=== PATIENT | male | born 1970 | race Caucasian/White ===

== ENCOUNTER → 2017-06-21 11:24 | Outpatient (CLI) | payer OTHER, SELFPAY ==
[2017-06-21 11:30] LABS: Red Blood Cells-Urine 0 SEEN /hpf (0-5); Squamous Epithelial Cells - UA 0 SEEN /hpf (0-5)
[2017-06-21 14:18] LABS: Color, Urine Yellow (Yellow); Glucose, Dipstick Normal (Normal); Ketone-Dipstick Negative (Negative); Leukocyte Esterase-Dipstick 25 /ul (Negative); Nitrite-Dipstick Negative (Negative); Occult Blood-Urine Negative /ul (Negative); Protein-Dipstick Negative (Negative); Urine Bilirubin Dipstick Negative (Negative); Urine Clarity Clear (Clear); Urine Urobilinogen Normal (Normal)
[2017-06-21 14:22] LABS: Absolute Lymphocyte Count 1.54 X10^3/ul (0.83-4.51); Absolute Neutrophil Count 3.6 X10^3/uL (2.0-7.7); Basophil# 0.02 X10^3/uL; Basophil% 0.3 % (0-1); Eosinophil# 0.27 X10^3/uL; Eosinophils% 4.4 % (0-5); Hematocrit 46.6 % (40-54); Hemoglobin 15.8 g/dl (13.0-16.5); Lymphocyte # 1.54 X10^3/ul (4.0); Lymphocyte % 25.2 % (19-41); Mean Corp Hgb Conc 33.9 g/gl (32-36); Mean Corpuscular Hgb 33.4 pg (27.0-32.0); Mean Corpuscular Volume 98.5 fL (80-94); Mean Platelet Vol. 11.3 fl (6.2-12.0); Monocyte# 0.66 X10^3/uL; Monocyte% 10.8 % (0-10); Neutrophil % 59.1 % (47-70); Platelet Count 189 K/mm3 (150-450); RBC Distribution Width SD 50.1 fl (35.1-43.9); Red Blood Count 4.73 M/mm3 (4.6-6.2); White Blood Count 6.1 K/mm3 (4.4-11.0)
[2017-06-21 14:28] LABS: Bacteria RARE /hpf (None Seen); Mucous, Urine 1+ /hpf (<or=2+); White Blood Cells 0-5 SEEN /hpf (0-5)
[2017-06-21 14:36] LABS: POSITIVE COUNT NO; POSITIVE DIFFERENTIAL NO; POSITIVE MORPHOLOGY NO
[2017-06-21 14:54] LABS: ALB/GLOB Ratio 1.1 RATIO (0.9-2.4); AST(SGOT) 17 U/L (15-37); Alanine Aminotransfer ALT/SGPT 26 U/L (16-61); Albumin, Serum 3.9 g/dL (3.2-5.0); Alkaline Phosphatase 93 U/L (45-117); Anion Gap 8 (5-15); BUN 19 mg/dL (7-18); BUN/Creat Ratio 19.3 RATIO (10-20); Calcium,Total 8.8 mg/dL (8.5-10.1); Chloride 109 mmol/L (98-107); Cholesterol 146 mg/dL (200); Creatinine, Serum 0.99 mg/dL (0.70-1.30); EST Glomerular Filtration Rate 86 mL/min (>60); Est Glom Filt Rate - Afr Amer 104 mL/min (>60); Globulin 3.5 g/dL (2.2-4.2); Glucose 93 mg/dL (74-106); High Density Lipoprotein 57 mg/dL; Potassium 4.2 mmol/L (3.5-5.1); Protein, Total 7.4 g/dL (6.4-8.2); Sodium Level 142 mmol/L (136-145); Thyroid Stim Hormone (TSH) 0.73 uIU/mL (0.358-3.74); Triglycerides 46 mg/dL; Very Low Density Lipoprotein 9 mg/dL (5-40)
== END ==
PROVIDERS: Family Provider Family Medicine; PCP Family Medicine; Visit Provider Family Medicine
DX: R07.9 Chest pain, unspecified (principal); K21.9 Gastro-esophageal reflux disease without esophagitis; Z72.0 Tobacco use; Z13.29 Encounter for screening for other suspected endocrine disorder
CPT/HCPCS: 36415; 80053; 80061; 81001; 84443; 85025

== ENCOUNTER → 2017-07-02 11:31 | Outpatient (CLI) | payer OTHER, SELFPAY ==
--- NOTE | 2017-07-02 18:57 | STRESSREP ---
Stress Test Report Exercise stress test. 47-year-old man with a history of chest pain. Stress protocol: Resting EKG demonstrates normal sinus rhythm with a rate of 77 bpm. The patient exercised according to regular Chris protocol for total duration of 9 minutes and 7 seconds the patient completed 7 seconds to stage IV of the Chris protocol the maximum heart rate attained was 166 bpm which was 96% maximum predicted heart rate the maximum workload attained was 10.2 metabolic equivalents. At rest there were no ST or T-wave changes noticed ischemia at peak exercise upsloping ST changes only were noted with no meet the criteria for ischemia. No clinical angina was noted. The test was terminated due to leg fatigue. The resting blood pressure is 160/90 mmHg with a peak blood pressure 168 of 100 mmHg. No arrhythmias were noted. Conclusion 1. exercise stress test with no EKG criteria for ischemia at a high workload. Good functional aerobic capacity. No clinical angina noted.
== END ==
PROVIDERS: Family Provider Family Medicine; PCP Family Medicine; Visit Provider Family Medicine
DX: R07.9 Chest pain, unspecified (principal); R91.8 Other nonspecific abnormal finding of lung field
CPT/HCPCS: 93017

== ENCOUNTER → 2017-07-11 13:12 | Outpatient (CLI) | payer OTHER, SELFPAY ==
--- NOTE | 2017-07-11 13:14 | CT_ITS ---
STUDY: CT CHEST WITHOUT CONTRAST REASON FOR EXAM: Male, 47 years old. Multiple lung nodules. Left upper chest pain for one year. Smoker. RADIATION DOSAGE (If Supplied By Facility): CTDIvol = ( 14.28 ) mGy, DLP = ( 542.3 ) mGycm TECHNIQUE: Transaxial imaging was performed without the administration of intravenous contrast material. Individualized dose optimization techniques were used for this CT. COMPARISON: None. No previous studies or radiologic reports are available for correlation at the time of this reading. FINDINGS: There are numerous small emphysematous bullae in the peripheral upper lung farr bilaterally. There are small scattered areas of atelectasis or fibrosis. There are no demonstrated pulmonary nodules. There is no demonstrated pleural abnormality. Normal heart and pericardium. There are small coronary artery calcifications. There are small mediastinal lymph nodes which are normal in size and morphology Normal hilar regions. Normal unenhanced pulmonary arteries. Normal aorta arch and descending thoracic aorta. There are old left rib fractures. There are multilevel degenerative changes in thoracic spine. There is a 1 cm left adrenal adenoma. There is an 8 mm right adrenal adenoma. CT/Chest without Contrast IMPRESSION: Mild emphysematous and fibrotic changes in the lungs. Mild coronary artery atherosclerosis. No evidence for acute pathology. No visualized masses or lymphadenopathy. Small bilateral adrenal adenomas. Electronically Signed: Timothy Liz MD at 5:32 EDT , Service support ,
== END ==
PROVIDERS: Family Provider Family Medicine; PCP Family Medicine; Visit Provider Family Medicine
DX: R91.8 Other nonspecific abnormal finding of lung field (principal); R07.9 Chest pain, unspecified; F17.200 Nicotine dependence, unspecified, uncomplicated
CPT/HCPCS: 71250

== ENCOUNTER 2021-02-20 13:13 | Inpatient (IN) | payer MEDICAID, SELFPAY ==
[2021-02-20] VITALS (7 sets, daily range): BP systolic 125–158; BP diastolic 72–82; PULSE 87–106; RESP 16–18; TEMP 36.1–37.3; O2SAT 97–98; BMI 28.8; BMI 28.2
--- NOTE | 2021-02-20 13:40 | ED.VIS.GI ---
HPI HPI - GI History of Present Illness Chief Complaint: GI Bleed Informant: patient Abdominal Pain/Flank Pain Onset: Today Context: Gradual Onset Timing: Continuous Quality: Aching Location: Epigastric Current Severity: Mild Maximum Severity: Mild Worsened by: Nothing Relieved by: Nothing Nausea/Vomiting/Emesis GI Symptom: Positive for Nausea and Vomiting Onset: Today Severity: Mild Diarrhea/Melena/Hematochezia GI Symptom: Negative for Diarrhea, Melena and Hematochezia Associated Symptoms Associated Symptoms: Negative for Dysuria, Frequency and Hematuria Narrative Narrative: 50-year-old male history of hiatal hernia, ulcerative colitis and irritable bowel. States that he had breakfast around 1030 this morning. States he felt bloated around 1130 he took some Gas-X and then had nausea vomiting the first time he threw up he said he threw up a large clot of dark red blood. He did this 3 times. He denies any recent melena. He is never had an upper GI bleed before. He states he was scoped upper and lower about a year ago and other than his ulcerative colitis he states he had no bleeding source at the time. He is on no blood thinners. He does drink around 4 times a week and had 2 beers and 2 shots last night. Prior similar symptoms: No Recent Illness/Hospitalization: No PFSH PFSH Medical History Colitis Hiatal hernia Irritable bowel Home Medications NK 02/20/21 [History Last Taken Unknown] Allergy/AdvReac Type Severity Reaction Status Date / Time No Known Allergies Allergy Verified 02/20/21 13:16 Social History Smoking Status: Current every day smoker tobacco type: cigarettes ROS ROS ED ROS Narrative Nausea and vomiting today. Epigastric abdominal pain today. Review of Systems ROS Unobtainable: Denies due to encephalopathy Constitutional Constitutional ED: Denies fever(s) or subjective ENT ENT ED: Denies ear pain Cardiovascular Cardiovascular: Denies chest pain Respiratory/Chest Respiratory/Chest: Denies cough or dyspnea Gastrointestinal Gastrointestinal: Reports abdominal pain, nausea and vomiting; Denies constipation, diarrhea or melena Genitourinary Genitourinary ED: Denies dysuria Musculoskeletal Musculoskeletal: Denies myalgias Integumentary Denies rash Neurologic Neurologic: Denies headache(s) Psychiatric Psychiatric: Denies depression Endocrine Endocrinology: Denies polyuria Hematologic/Lymphatic Hematologic/Lymphatic: Denies easy bruising EXAM Physical Exam Narrative Exam Narrative: 30-year-old male no acute distress vital signs stable afebrile. Initial pressure 158/78. HEENT exam unremarkable moist with memories. Lungs clear to auscultation. Heart regular rhythm rate about 100 no murmur. Abdomen soft epigastric tenderness. No rebound or guarding. He is tender in that area. Right upper and lower quadrants are unremarkable. No signs of obstruction. Moving all 4 extremities. No edema. Nontender back nontender. Neurologic exam normal. Const Vital Signs: 02/20/21 13:13 Temperature 97.3 F L Temperature Source Temporal Pulse Rate 105 H Respiratory Rate 16 Blood Pressure 158/78 H Blood Pressure Mean 104 Pulse Ox 97 Oxygen Delivery Method Room Air Positive well nourished and well developed; Negative for cachectic, contractures or unkempt General Appearance ED: well developed and NAD; Negative for unkempt, cachectic, contractures or pallor Nutritional Appearance: Negative for cachectic HEENT Reports moist mucous membranes normocephalic and atraumatic; Negative for trauma or tenderness Eyes PERRL and EOMs intact bilaterally Neck no lymphadenopathy, supple and no JVD General: Negative for tenderness Resp normal respiratory effort and clear to auscultation bilaterally Auscultation: Negative for rales, rhonchi or wheezes Cardio regular rate, regular rhythm, S1 normal heart sound, S2 normal heart sound and no murmurs GI non-tender, non-distended and no masses Auscultation: normoactive bowel sounds Palpation: soft; Negative for tender, guarding or rigid Back/Spine no CVA tenderness General Back: Negative for CVA tenderness Cervical Spine: Negative for cervical spine tenderness Extremity full ROM General Extremety ED: Negative for edema or tenderness General Extremity: Negative for edema Neuro moves all extremities Sensorium / Orientation: alert, oriented to person, oriented to place and oriented to time; Negative for orientation impaired, confused, lethargic or stuporous Motor Exam: strength 5/5 throughout Psych mental status grossly normal and thought process normal Appearance: Negative for unkempt Skin no wounds General Skin Exam: Negative for jaundice or pallor Lesions: no lesions Rashes: no rashes MDM MDM MDM Narrative Medical decision making narrative: 50-year-old male with hematemesis x3 today. Currently stable. Started on IV Protonix screening labs being obtained. He also has epigastric pain which could be pancreatitis liver possible ulcer or gastritis versus other. He will be typed and screened. Repeat exam unchanged at 2:30 PM. Patient is resting comfortably. He has had no further hematemesis or vomiting while in the emergency department. I spoke to our hospitalist and general surgeon on-call patient will be admitted to the PCU. Lab Data Attestation: I reviewed the patient's lab results. Lab results narrative: CBC shows normal white count of 6. Hemoglobin 11 previously was 15.8 but that was 3 years ago we have no other labs on the patient. Electrolytes unremarkable gap of 4 normal BUN and creatinine. Glucose 168. Liver enzymes unremarkable alk phos 146. Lipase normal at 309. Labs: Laboratory Results - last 24 hr 02/20/21 02/20/21 02/20/21 13:25 13:25 13:25 WBC 6.8 RBC 3.97 L Hgb 11.0 L Hct 35.3 L MCV 88.9 MCH 27.7 MCHC 31.2 L RDW Std Deviation 49.3 H RDW Coeff of Jumana 15.1 H Plt Count 123 L MPV 11.3 Immature Gran % (Auto) 0.400 Neut % (Auto) 74.0 H Lymph % (Auto) 14.2 L Hart % (Auto) 8.9 Eos % (Auto) 1.9 Baso % (Auto) 0.6 Absolute Neuts (auto) 5.0 Absolute Lymphs (auto) 0.96 Nucleated RBC % 0 Sodium 139 Potassium 4.1 Chloride 110 H Carbon Dioxide 25.0 Anion Gap 4 L BUN 11 Creatinine 0.81 Estim Creat Clear Calc 107.89 Est GFR (MDRD) Af Amer 129 Est GFR (MDRD) Non-Af 107 BUN/Creatinine Ratio 13.6 Glucose 168 H Calcium 8.9 Total Bilirubin 0.70 Direct Bilirubin 0.32 H AST 62 H ALT 35 Alkaline Phosphatase 146 H Total Protein 7.9 Albumin 3.2 Globulin 4.7 H Lipase 02/20/21 13:25 WBC RBC Hgb Hct MCV MCH MCHC RDW Std Deviation RDW Coeff of Jumana Plt Count MPV Immature Gran % (Auto) Neut % (Auto) Lymph % (Auto) Hart % (Auto) Eos % (Auto) Baso % (Auto) Absolute Neuts (auto) Absolute Lymphs (auto) Nucleated RBC % Sodium Potassium Chloride Carbon Dioxide Anion Gap BUN Creatinine Estim Creat Clear Calc Est GFR (MDRD) Af Amer Est GFR (MDRD) Non-Af BUN/Creatinine Ratio Glucose Calcium Total Bilirubin Direct Bilirubin AST ALT Alkaline Phosphatase Total Protein Albumin Globulin Lipase 309 Discharge Plan Triage Chief Complaint: GI Bleed ED Provider: Samuel Koenig Dx/Rx/DC Orders Clinical Impression: Acute upper gastrointestinal bleeding Instructions: ED Upper GI Bleeding (Stable) Prescriptions: No Action NK RF: 0 Primary Care Provider: Aron Moya Referrals: Aron Moya MD [Primary Care Provider] - Disposition Disposition: Acute Care Hospital [facility]
[2021-02-20 13:42] LABS: Absolute Lymphocyte Count 0.96 X10^3/uL (0.83-4.51); Basophil# 0.04 X10^3/uL; Basophil% 0.6 % (0-1); Eosinophil# 0.13 X10^3/uL; Eosinophils% 1.9 % (0-5); Hematocrit 35.3 % (40-54); Lymphocyte # 0.96 X10^3/ul (0.83-4.51); Lymphocyte % 14.2 % (19-41); Mean Corp Hgb Conc 31.2 g/dL (32-36); Mean Corpuscular Hgb 27.7 pg (27.0-32.0); Mean Corpuscular Volume 88.9 fL (80-94); Mean Platelet Vol. 11.3 fl (6.2-12.0); Monocyte% 8.9 % (0-10); NRBC Flagged by Analyzer 0 % (0-5); Neutrophil # 4.99 X10^3/uL (2.7-7.7); Platelet Count 123 K/mm3 (150-450); RBC Distribution Width CV 15.1 % (11.6-14.6); RBC Distribution Width SD 49.3 fl (35.1-43.9); Red Blood Count 3.97 M/mm3 (4.6-6.2); White Blood Count 6.8 K/mm3 (4.4-11.0)
[2021-02-20 13:50] LABS: Anion Gap 4 (5-15); BUN 11 mg/dL (7-18); BUN/Creat Ratio 13.6 RATIO (10-20); Calcium,Total 8.9 mg/dL (8.5-10.1); Chloride 110 mmol/L (98-107); Creatinine, Serum 0.81 mg/dL (0.70-1.30); EST Glomerular Filtration Rate 107 mL/min (>60); Est Glom Filt Rate - Afr Amer 129 mL/min (>60); Estimated Creatinine Clearance 107.89 ml/min; Glucose 168 mg/dL (74-106); Potassium 4.1 mmol/L (3.5-5.1); Sodium Level 139 mmol/L (136-145)
[2021-02-20 14:14] LABS: Lipase 309 U/L (73-393)
[2021-02-20 14:15] LABS: AST(SGOT) 62 U/L (15-37); Alanine Aminotransfer ALT/SGPT 35 U/L (16-61); Albumin, Serum 3.2 g/dL (3.2-5.0); Alkaline Phosphatase 146 U/L (45-117); Bilirubin, Direct 0.32 mg/dL (0.00-0.30); Globulin 4.7 g/dL (2.2-4.2); Protein, Total 7.9 g/dL (6.4-8.2)
--- NOTE | 2021-02-20 14:26 | ED.RN ---
called to check status of protonix in pharmacy at [phone]
--- NOTE | 2021-02-20 14:50 | HP.PCM.HOS_ITS ---
HPI - General General Date of Admission: 02/20/21 HPI Narrative LUH RAMOS, is a 50 M who presents after having multiple episodes of emesis with blood clots, each episode of emesis had enough blood clots to fill the palm of his hands. He states that he had breakfast this morning and started feeling bloated. At that point he became nauseated and had a first episode of emesis. He denies any blood in his bowel movements, denies any dark stools. He takes Nexium for his hiatal hernia. He does have a drinking history and says he drinks about 4 times a week and had about 2 beers and 2 shots last night. In the ER lab work straight been of 11 which is down from 15, 3 years ago. BUN is normal at 11 creatinine is unremarkable. Direct bilirubin is little bit elevated but his total bilirubin is normal. AST is 62 ALT is 35 and alk phos is 146. He does state that he has a history of colitis but is not sure if his ulcerative colitis. He was given a dose of Protonix in the ER. [facility] Medical History (Updated 02/20/21 @ 14:[address] Samuel Koenig MD) Colitis Hiatal hernia Irritable bowel Home Medications NK 02/20/21 [History Last Taken Unknown] Allergy/AdvReac Type Severity Reaction Status Date / Time No Known Allergies Allergy Verified 02/20/21 13:16 Family History (Updated 02/20/21 @ 15:[address] Kain Xiong MD) Other Cancer Diabetes Heart disease Surgical History (Updated 02/20/21 @ 15:[address] Kain Xiong MD) Status post rotator cuff repair Social History Smoking Status: Current every day smoker tobacco type: cigarettes ROS Constitutional Constitutional: Denies chills, fatigue, fever(s) or malaise Eyes Eyes: Denies blurry vision ENT HEENT: Denies headache(s) or nasal discharge Cardiovascular Cardiovascular: Denies chest pain, dyspnea on exertion or syncope Respiratory/Chest Respiratory/Chest: Denies cough, shortness of breath at rest or shortness of breath with exertion Gastrointestinal Gastrointestinal: Reports hematemesis, nausea and vomiting; Denies constipation or diarrhea Genitourinary Genitourinary: Denies dysuria Neurologic Neurologic: Denies focal weakness, numbness or tremor(s) Psychiatric Psychiatric: Denies anxiety or depression Vital Signs Vital Signs Vital Signs: 02/20/21 13:13 Temperature 97.3 F L Temperature Source Temporal Pulse Rate 105 H Respiratory Rate 16 Blood Pressure 158/78 H Blood Pressure Mean 104 Pulse Ox 97 Oxygen Delivery Method Room Air Weight Weight: 195 lb Body Mass Index (BMI) 28.8 Physical Exam Const alert, oriented x3 and no apparent distress General Appearance: cooperative HEENT normocephalic and moist oral mucous membranes Eyes PERRL, EOMs intact bilaterally and conjunctivae normal Neck supple and no JVD Resp normal respiratory effort, no retractions, no use of accessory muscles and clear to auscultation bilaterally Auscultation: Negative for crackles, rales, rhonchi or wheezes Cardio regular rate, regular rhythm, S1 normal heart sound, S2 normal heart sound and no murmurs GI soft to palpation and non-distended; Negative for hepatosplenomegaly Palpation: tender epigastric Extremity no clubbing, cyanosis or edema Skin no rashes or lesions noted Neuro no focal motor deficits and no sensory deficits noted Psych affect normal Appearance: appropriate Results Lab / Micro Data Result Diagrams: 02/20/21 13:25 02/20/21 13:25 Labs: Laboratory Results - last 24 hr 02/20/21 13:25: WBC 6.8, RBC 3.97 L, Hgb 11.0 L, Hct 35.3 L, MCV 88.9, MCH 27.7, MCHC 31.2 L, RDW Std Deviation 49.3 H, RDW Coeff of Jumana 15.1 H, Plt Count 123 L, MPV 11.3, Immature Gran % (Auto) 0.400, Neut % (Auto) 74.0 H, Lymph % (Auto) 14.2 L, [place] % (Auto) 8.9, Eos % (Auto) 1.9, Baso % (Auto) 0.6, Absolute Neuts (auto) 5.0, Absolute Lymphs (auto) 0.96, Nucleated RBC % 0 02/20/21 13:25: Sodium 139, Potassium 4.1, Chloride 110 H, Carbon Dioxide 25.0, Anion Gap 4 L, BUN 11, Creatinine 0.81, Estim Creat Clear Calc 107.89, Est GFR (MDRD) Af Amer 129, Est GFR (MDRD) Non-Af 107, BUN/Creatinine Ratio 13.6, Glucose 168 H, Calcium 8.9 02/20/21 13:25: Total Bilirubin 0.70, Direct Bilirubin 0.32 H, AST 62 H, ALT 35, Alkaline Phosphatase 146 H, Total Protein 7.9, Albumin 3.2, Globulin 4.7 H 02/20/21 13:25: Lipase 309 02/20/21 13:52: Blood Type A POSITIVE, Antibody Screen NEGATIVE Assessment & Plan Assessment/Plan (1) Acute upper gastrointestinal bleeding: PLAN: 1. Acute upper GI bleeding -We will start him on Protonix and make him n.p.o. -Consult general surgery for endoscopy -We will type and screen and repeat H&H this evening at 7 PM -We will place him on IV fluids -We will place him on CIWA protocol secondary to his drinking, he will likely need to be ruled out for any type of varices or alcohol induced GI bleeding DVT: SCDs Charges/Coding Visit Charges Inpatient E&M: 15491 Init Hosp L2
[2021-02-20] MEDS: 0.9% Normal Saline 1,000 ML 100 ML IV (16:04)
[2021-02-20] MEDS: 0.9% Saline Lock 10 ML Syringe IV (16:08)
[2021-02-20] MEDS: Ondansetron 4 MG/2 ML Vial IV (16:08)
[2021-02-20 18:50] LABS: Hematocrit 29.4 % (40-54); Hemoglobin 9.1 g/dL (13.0-16.5)
[2021-02-21] VITALS (30 sets, daily range): BP systolic 85–125; BP diastolic 33–102; PULSE 90–126; RESP 12–22; TEMP 36.4–37.4; O2SAT 93–100; BMI 28.2
[2021-02-21] MEDS: 0.9% Normal Saline 1,000 ML 100 ML IV ×3 (01:08→21:23)
[2021-02-21 07:15] LABS: Absolute Lymphocyte Count 1.13 X10^3/uL (0.83-4.51); Absolute Neutrophil Count 5.2 X10^3/uL (2.0-7.7); Basophil# 0.03 X10^3/uL; Basophil% 0.4 % (0-1); Eosinophil# 0.12 X10^3/uL; Eosinophils% 1.7 % (0-5); Hematocrit 24.7 % (40-54); Hemoglobin 7.8 g/dL (13.0-16.5); Lymphocyte # 1.13 X10^3/ul (0.83-4.51); Lymphocyte % 15.6 % (19-41); Mean Corp Hgb Conc 31.6 g/dL (32-36); Mean Corpuscular Hgb 28.5 pg (27.0-32.0); Mean Corpuscular Volume 90.1 fL (80-94); Mean Platelet Vol. 12.3 fl (6.2-12.0); Monocyte# 0.78 X10^3/uL; Monocyte% 10.8 % (0-10); NRBC Flagged by Analyzer 0 % (0-5); Neutrophil # 5.15 X10^3/uL (2.7-7.7); Neutrophil % 71.1 % (47-70); Platelet Count 108 K/mm3 (150-450); RBC Distribution Width CV 15.4 % (11.6-14.6); RBC Distribution Width SD 50.2 fl (35.1-43.9); Red Blood Count 2.74 M/mm3 (4.6-6.2); White Blood Count 7.2 K/mm3 (4.4-11.0)
[2021-02-21 07:45] LABS: Anion Gap 4 (5-15); BUN 28 mg/dL (7-18); BUN/Creat Ratio 37.5 RATIO (10-20); Calcium,Total 8.5 mg/dL (8.5-10.1); Chloride 115 mmol/L (98-107); Creatinine, Serum 0.75 mg/dL (0.70-1.30); EST Glomerular Filtration Rate 117 mL/min (>60); Est Glom Filt Rate - Afr Amer 141 mL/min (>60); Estimated Creatinine Clearance 116.52 ml/min; Glucose 148 mg/dL (74-106); Potassium 4.9 mmol/L (3.5-5.1); Sodium Level 142 mmol/L (136-145)
--- NOTE | 2021-02-21 07:51 | EX.PCM.CON.S ---
Assessment & Plan Assessment/Plan (1) Acute upper gastrointestinal bleeding: PLAN: Patient is actively vomiting blood. I discussed EGD with him. I discussed the procedure in detail as well as the risks including but not limited to bleeding, infection, perforation of the GI tract or worsening of bleeding. I also explained to him that I would be unable to band esophageal varices and he would require repeat procedure by GI if this is the case. Patient agrees to proceed with EGD this morning. Sergio Turner MD Pager: [facility] [address] [place] [address], [address] [place] [address] Office: HPI Consult Data Date of Consult: 02/21/21 HPI Narrative HPI Narrative: LUH RAMOS is a 50 M who presents with upper GI bleeding. The patient vomited blood several times yesterday. Patient also reports he has vomited blood twice since being in the hospital. He says he does have some epigastric pain. He reports drinking occasionally about 3 times a week. He is on Nexium at home. [facility] Medical History Asthma Colitis GERD (gastroesophageal reflux disease) Hiatal hernia Irritable bowel Smoker Home Medications esomeprazole magnesium [Nexium 24HR] 40 mg PO DAILY 02/20/21 [History Last Taken 02/20/21 08:00] ipratropium-albuterol ml PRN 02/20/21 [History Last Taken Unknown] Allergy/AdvReac Type Severity Reaction Status Date / Time No Known Allergies Allergy Verified 02/20/21 13:16 Family History (Updated 02/20/21 @ 15:[address] Kain Xiong MD) Other Cancer Diabetes Heart disease Surgical History (Updated 02/20/21 @ 15:[address] Kain Xiong MD) Status post rotator cuff repair Social History Smoking Status: Current every day smoker tobacco type: cigarettes ROS Constitutional Constitutional: Denies anorexia or fatigue Eyes Eyes: Denies blurry vision ENT HEENT: Denies abnormal hearing Cardiovascular Cardiovascular: Denies chest pain Respiratory/Chest Respiratory/Chest: Denies cough or productive cough Gastrointestinal Gastrointestinal: Reports abdominal pain, hematemesis, nausea and vomiting; Denies melena Genitourinary Genitourinary: Denies change in urinary stream or urinary urgency Musculoskeletal Musculoskeletal: Denies abnormal gait Integumentary Integumentary: Denies jaundice Neurologic Neurologic: Denies abnormal gait Psychiatric Psychiatric: Denies anxiety Endocrine Endocrinology: Denies flushing Hematologic/Lymphatic Hematologic/Lymphatic: Denies easy bleeding Physical Exam Const alert and oriented x3 Exam Limitations: no limitations HEENT normocephalic Eyes PERRL Resp normal respiratory effort Cardio Rate: tachycardic GI soft to palpation Palpation: tender epigastric Extremity normal to inspection and full ROM Neuro CN's II-XII intact bilaterally Lab / Micro Data Result Diagrams: 02/21/21 06:11 02/21/21 06:11 Labs: Laboratory Results - last 24 hr 02/20/21 13:25: WBC 6.8, RBC 3.97 L, Hgb 11.0 L, Hct 35.3 L, MCV 88.9, MCH 27.7, MCHC 31.2 L, RDW Std Deviation 49.3 H, RDW Coeff of Jumana 15.1 H, Plt Count 123 L, MPV 11.3, Immature Gran % (Auto) 0.400, Neut % (Auto) 74.0 H, Lymph % (Auto) 14.2 L, [place] % (Auto) 8.9, Eos % (Auto) 1.9, Baso % (Auto) 0.6, Absolute Neuts (auto) 5.0, Absolute Lymphs (auto) 0.96, Nucleated RBC % 0 02/20/21 13:25: Sodium 139, Potassium 4.1, Chloride 110 H, Carbon Dioxide 25.0, Anion Gap 4 L, BUN 11, Creatinine 0.81, Estim Creat Clear Calc 107.89, Est GFR (MDRD) Af Amer 129, Est GFR (MDRD) Non-Af 107, BUN/Creatinine Ratio 13.6, Glucose 168 H, Calcium 8.9 02/20/21 13:25: Total Bilirubin 0.70, Direct Bilirubin 0.32 H, AST 62 H, ALT 35, Alkaline Phosphatase 146 H, Total Protein 7.9, Albumin 3.2, Globulin 4.7 H 02/20/21 13:25: Lipase 309 02/20/21 13:52: Blood Type A POSITIVE, Antibody Screen NEGATIVE 02/20/21 18:43: Hgb 9.1 L, Hct 29.4 L 02/21/21 06:11: WBC 7.2, RBC 2.74 L, Hgb 7.8 L, Hct 24.7 L, MCV 90.1, MCH 28.5, MCHC 31.6 L, RDW Std Deviation 50.2 H, RDW Coeff of Jumana 15.4 H, Plt Count 108 L, MPV 12.3 H, Immature Gran % (Auto) 0.400, Neut % (Auto) 71.1 H, Lymph % (Auto) 15.6 L, [place] % (Auto) 10.8 H, Eos % (Auto) 1.7, Baso % (Auto) 0.4, Absolute Neuts (auto) 5.2, Absolute Lymphs (auto) 1.13, Nucleated RBC % 0 02/21/21 06:11: Sodium 142, Potassium 4.9, Chloride 115 H, Carbon Dioxide 23.0, Anion Gap 4 L, BUN 28 H, Creatinine 0.75, Estim Creat Clear Calc 116.52, Est GFR (MDRD) Af Amer 141, Est GFR (MDRD) Non-Af 117, BUN/Creatinine Ratio 37.5 H, Glucose 148 H, Calcium 8.5
--- NOTE | 2021-02-21 09:34 | OP.EGD_ITS ---
Patient Name: Kevin Moncada Procedure Date: 02/21/2021 7:29 AM Date of : 1970 Age: 50 Procedure: Upper GI endoscopy Indications: Hematemesis Providers: Sergio Turner MD Medicines: Monitored Anesthesia Care Patient Profile: This is a 50 year old male. Refer to note in patient chart for documentation of history and physical. Complications: No immediate complications. Procedure: Pre-Anesthesia Assessment: - Prior to the procedure, a History and Physical was performed, and patient medications and allergies were reviewed. The patient's tolerance of previous anesthesia was also reviewed. The risks and benefits of the procedure and the sedation options and risks were discussed with the patient. All questions were answered, and informed consent was obtained. Prior Anticoagulants: The patient has taken no previous anticoagulant or antiplatelet agents. After reviewing the risks and benefits, the patient was deemed in satisfactory condition to undergo the procedure. After obtaining informed consent, the endoscope was passed under direct vision. Throughout the procedure, the patient's blood pressure, pulse, and oxygen saturations were monitored continuously. The Endoscope was introduced through the mouth, and advanced to the second part of duodenum. The upper GI endoscopy was accomplished without difficulty. The patient tolerated the procedure well. Scope In: 8:39:11 AM Scope Out: 9:21:11 AM Total Procedure Duration Time 0 hours 42 minutes 0 seconds Findings: The esophagus was normal. The examined duodenum was normal. Clotted blood was found in the stomach. No active bleeding identified. Impression: - Normal esophagus. - Normal examined duodenum. - Clotted blood in the stomach. - No specimens collected. Recommendation: - Return patient to hospital [facility] for ongoing care. - NPO. - Continue present medications. Procedure Code(s): --- Professional --- 53719, Esophagogastroduodenoscopy, flexible, transoral; diagnostic, including collection of specimen(s) by brushing or washing, when performed (separate procedure) Diagnosis Code(s): --- Professional --- K92.2, Gastrointestinal hemorrhage, unspecified K92.0, Hematemesis CPT copyright 2017 [employer]. All rights reserved. The codes documented in this report are preliminary and upon applied psychology teacher review may be revised to meet current compliance requirements. Sergio Turner MD 02/21/2021 9:33:46 AM This report has been signed electronically. Number of Addenda: 0 Note Initiated On: 02/21/2021 7:29 AM
--- NOTE | 2021-02-21 09:34 | PN_ITS ---
Progress Note I was unable to identify the source of the bleeding on EGD. The esophagus appeared normal as did the duodenum. There was a large blood clot in the stomach but it was mobile and able to be moved with positioning changes and I did not note any active bleeding in the wall of the stomach. I returned the patient to the PCU and keep him n.p.o. and check q4 H&H. Continue PPI. If the patient continues to vomit blood I recommend placing an NG tube and I will rescope this afternoon. Sergio Turner MD Pager: [facility] [address] [place] [address], [address] [place] [address] Office:
--- NOTE | 2021-02-21 10:42 | CASEMGMT ---
JJ SILVER assessment: Face to Face with patient for initial transition planning/care coordination assessment. JJ SILVER introduced self and role at [facility], pt voices understanding and consents to assessment. Pt is lying in bed in no distress on room air. Pt's is at bedside during assessment. Pt is A/Ox4 and answers all questions appropriately. Care providers, pharmacy, and demographics verified. Presentation: Pt c/o vomitting blood Admitting dx: Upper GI bleed PCP: [facility] Specialists: Pt states no current specialists. [facility]erred [facility]acy: [facility] Insurance: [employer] Prescription Benefit: [employer] Living Will/HPOA: Pt does not have LW/HPOA and declines AD info at this time. LNOK: Nia Moncada, Living Arrangements: Pt lives with in apt with no steps and states no concerns at home. Pt is independent with ADL's. Transportation: Pt states drives self and states no transportation concerns. DME/HHC: Pt has nebulizer and states no need for any further DME. Pt states no hx of HHC or SNF. Pt states no concerns with going home at time of discharge. Pt is unemployed. Pt states smokes a pack cigarettes daily and drinks ETOH about every other day. Pt voices no further concerns/needs. CM to follow for any further discharge planning/needs. Advised pt to ask for CM if any further questions/concerns/need arise, voices understanding. Pt Goal: Home Plan[place] JJ SILVER
--- NOTE | 2021-02-21 10:52 | CPS ---
Aersol was given by Anestisia.
[2021-02-21] MEDS: Ondansetron 4 MG/2 ML Vial IV (11:11)
[2021-02-21 11:27] LABS: Hematocrit 22.9 % (40-54)
--- NOTE | 2021-02-21 13:11 | PN.HOSP_ITS ---
Subjective Subjective Had his EGD today and there is blood clot in the stomach but no active bleeding. However when he returned to the room prior to my evaluation he had another bloody emesis. Plan is to take him back for scope later this afternoon. In the meantime we will transfuse 1 unit. He otherwise feels little bit better because his bloating and abdominal distention is much improved Objective Data Objective Data Vital Signs: Vital Signs Temp Pulse Resp BP Pulse Ox 98.7 F 112 H 12 110/72 98 02/21/21 12:57 02/21/21 12:57 02/21/21 12:57 02/21/21 12:57 02/21/21 12:57 Oxygen Delivery Method Room Air Weight: 191 lb 2.252 oz Body Mass Index (BMI) 28.2 Intake & Output: Intake and Output for Last 24 Hours 02/20/21 02/21/21 02/22/21 03:59 03:59 03:59 Intake Total 1191.67 / 1191.67 1065 / 1065 Output Total 300 / 300 100 / 100 Balance 891.67 / 891.67 965 / 965 Lab / Micro Data Result Diagrams: 02/21/21 11:20 02/21/21 06:11 Labs: Laboratory Results - last 24 hr 02/20/21 13:25: WBC 6.8, RBC 3.97 L, Hgb 11.0 L, Hct 35.3 L, MCV 88.9, MCH 27.7, MCHC 31.2 L, RDW Std Deviation 49.3 H, RDW Coeff of Jumana 15.1 H, Plt Count 123 L, MPV 11.3, Immature Gran % (Auto) 0.400, Neut % (Auto) 74.0 H, Lymph % (Auto) 14.2 L, [place] % (Auto) 8.9, Eos % (Auto) 1.9, Baso % (Auto) 0.6, Absolute Neuts (auto) 5.0, Absolute Lymphs (auto) 0.96, Nucleated RBC % 0 02/20/21 13:25: Sodium 139, Potassium 4.1, Chloride 110 H, Carbon Dioxide 25.0, Anion Gap 4 L, BUN 11, Creatinine 0.81, Estim Creat Clear Calc 107.89, Est GFR (MDRD) Af Amer 129, Est GFR (MDRD) Non-Af 107, BUN/Creatinine Ratio 13.6, Glucose 168 H, Calcium 8.9 02/20/21 13:25: Total Bilirubin 0.70, Direct Bilirubin 0.32 H, AST 62 H, ALT 35, Alkaline Phosphatase 146 H, Total Protein 7.9, Albumin 3.2, Globulin 4.7 H 02/20/21 13:25: Lipase 309 02/20/21 13:51: Crossmatch See Detail 02/20/21 13:52: Blood Type A POSITIVE, Antibody Screen NEGATIVE 02/20/21 18:43: Hgb 9.1 L, Hct 29.4 L 02/21/21 06:11: WBC 7.2, RBC 2.74 L, Hgb 7.8 L, Hct 24.7 L, MCV 90.1, MCH 28.5, MCHC 31.6 L, RDW Std Deviation 50.2 H, RDW Coeff of Jumana 15.4 H, Plt Count 108 L, MPV 12.3 H, Immature Gran % (Auto) 0.400, Neut % (Auto) 71.1 H, Lymph % (Auto) 15.6 L, [place] % (Auto) 10.8 H, Eos % (Auto) 1.7, Baso % (Auto) 0.4, Absolute Neuts (auto) 5.2, Absolute Lymphs (auto) 1.13, Nucleated RBC % 0 02/21/21 06:11: Sodium 142, Potassium 4.9, Chloride 115 H, Carbon Dioxide 23.0, Anion Gap 4 L, BUN 28 H, Creatinine 0.75, Estim Creat Clear Calc 116.52, Est GFR (MDRD) Af Amer 141, Est GFR (MDRD) Non-Af 117, BUN/Creatinine Ratio 37.5 H, Glucose 148 H, Calcium 8.5 02/21/21 11:20: Hgb 7.0 L, Hct 22.9 L Micro: Microbiology 02/21/21 08:15 Nasal Secretion SARS-CoV-2 Antigen (Rapid) - Final Physical Exam Const alert, oriented x3 and no apparent distress General Appearance: cooperative HEENT normocephalic and moist oral mucous membranes Eyes PERRL, EOMs intact bilaterally and conjunctivae normal Neck supple and no JVD Resp normal respiratory effort, no retractions, no use of accessory muscles and clear to auscultation bilaterally Auscultation: Negative for crackles, rales, rhonchi or wheezes Cardio regular rate, regular rhythm, S1 normal heart sound, S2 normal heart sound and no murmurs GI soft to palpation and non-distended; Negative for hepatosplenomegaly Palpation: tender epigastric Extremity no clubbing, cyanosis or edema Skin no rashes or lesions noted Neuro no focal motor deficits and no sensory deficits noted Psych affect normal Appearance: appropriate Assessment & Plan Assessment/Plan (1) Acute upper gastrointestinal bleeding: PLAN: 1. Acute upper GI bleeding -Continue with n.p.o. and Protonix -Consult general surgery for endoscopy -Plan for blood transfusion today -Continue with IV fluids, can hold the fluids while blood is being infused -We will place him on CIWA protocol secondary to his drinking, he will likely need to be ruled out for any type of varices or alcohol induced GI bleeding DVT: SCDs Charges/Coding Visit Charges Inpatient E&M: 51161 Subs Hosp L2
[2021-02-21] MEDS: Metoclopramide 10 MG/2 ML Vial IV (15:09)
[2021-02-21 15:16] LABS: Hematocrit 25.6 % (40-54)
--- NOTE | 2021-02-21 16:08 | SUR.PREOP ---
pt. had a large, bloody emesis. reglan given, zithromax infusing now.
--- NOTE | 2021-02-21 16:48 | PN.GI_ITS ---
Subjective Subjective Patient underwent upper endoscopy and was discovered to have an OG V1 variceal bleed and an esophageal varices with bleeding stigmata. These were both banded. Objective Data Objective Data Vital Signs: Vital Signs Temp Pulse Resp BP Pulse Ox 98.6 F 115 H 12 115/72 99 02/21/21 14:45 02/21/21 15:00 02/21/21 14:45 02/21/21 14:45 02/21/21 14:45 Oxygen Delivery Method Room Air Weight: 191 lb 2.252 oz Body Mass Index (BMI) 28.2 Intake & Output: Intake and Output for Last 24 Hours 02/19/21 02/20/21 02/21/21 23:59 23:59 23:59 Intake Total 285 / 285 2371.67 / 2371.67 Output Total 300 / 300 100 / 100 Balance - 2271.67 / 2271.67 Lab / Micro Data Result Diagrams: 02/21/21 13:58 02/21/21 06:11 Labs: Laboratory Results - last 24 hr 02/20/21 13:51: Crossmatch See Detail 02/20/21 18:43: Hgb 9.1 L, Hct 29.4 L 02/21/21 06:11: WBC 7.2, RBC 2.74 L, Hgb 7.8 L, Hct 24.7 L, MCV 90.1, MCH 28.5, MCHC 31.6 L, RDW Std Deviation 50.2 H, RDW Coeff of Jumana 15.4 H, Plt Count 108 L, MPV 12.3 H, Immature Gran % (Auto) 0.400, Neut % (Auto) 71.1 H, Lymph % (Auto) 15.6 L, [place] % (Auto) 10.8 H, Eos % (Auto) 1.7, Baso % (Auto) 0.4, Absolute Neuts (auto) 5.2, Absolute Lymphs (auto) 1.13, Nucleated RBC % 0 02/21/21 06:11: Sodium 142, Potassium 4.9, Chloride 115 H, Carbon Dioxide 23.0, Anion Gap 4 L, BUN 28 H, Creatinine 0.75, Estim Creat Clear Calc 116.52, Est GFR (MDRD) Af Amer 141, Est GFR (MDRD) Non-Af 117, BUN/Creatinine Ratio 37.5 H, Glucose 148 H, Calcium 8.5 02/21/21 11:20: Hgb 7.0 L, Hct 22.9 L 02/21/21 13:58: Hgb 8.0 L, Hct 25.6 L Micro: Microbiology 02/21/21 08:15 Nasal Secretion SARS-CoV-2 Antigen (Rapid) - Final Physical Exam Const alert General Appearance: cooperative Orientation / Consciousness: oriented to person HEENT hearing grossly normal bilaterally Head and Scalp: normal to inspection Face and Sinus: face symmetric Nose: external nose normal Mouth: oral and palatal mucosa normal Eyes conjunctivae normal General Eye: normal appearance of both eyes Neck full ROM General: normal visual inspection Lymph Lymphatic: no lymphadenopathy noted Chest inspection of chest normal and palpation of chest normal Chest: symmetrical chest wall rise Resp normal respiratory effort Effort and Inspection: able to speak in complete sentences Cardio regular rate GI non-distended Percussion: normal to percussion Rectal Exam: deferred Neuro Speech: speech normal Gait (Neuro): normal gait Assessment & Plan Assessment/Plan (1) Acute upper gastrointestinal bleeding: PLAN: Patient will need an octreotide drip and a PPI drip for the next 24 to 48 hours. I will also give him 1 g of ceftriaxone for an upper GI bleed secondary to variceal bleed. I will check an INR so we can calculate his meld s core. He will need a right upper quadrant ultrasound with Dopplers to see if he has portal vein thrombosis, hepatic vein thrombosis and or cirrhosis. He will need to be on standing antiemetics. He will need to undergo repeat upper endoscopy tomorrow or Sunday. Monitor CBC every 6 hours. I will also start Xifaxan for hepatic encephalopathy prophylaxis. (2) Thrombocytopenia: PLAN: Thrombocytopenia secondary to splenic sequestration in the setting of portal hypertension versus platelet clumping. (3) Portal hypertension: PLAN: We will need to start midodrine as an outpatient and I will start nadolol by mouth to decrease the pressure in the varices. Charges/Coding Visit Charges Inpatient E&M: 56797 Subs Hosp L3
--- NOTE | 2021-02-21 17:12 | SUR.PHASEI ---
IN PACU, UPPER GI BLEED, HAVING DIFFICULTY COOPERATING WITH PACU VITALS AND CARE. INCONTINENT TARRY STOOLS, ASSISTING TO USE BEDPAN.
[2021-02-21] MEDS: Ceftriaxone 1 GM/50 ML BAG IV (17:49)
[2021-02-21 17:50] LABS: Absolute Lymphocyte Count 1.58 X10^3/uL (0.83-4.51); Absolute Neutrophil Count 11.6 X10^3/uL (2.0-7.7); Basophil# 0.05 X10^3/uL; Basophil% 0.3 % (0-1); Eosinophil# 0.06 X10^3/uL; Eosinophils% 0.4 % (0-5); Hematocrit 23.1 % (40-54); International Normalized Ratio 1.4; Lymphocyte # 1.58 X10^3/ul (0.83-4.51); Lymphocyte % 10.9 % (19-41); Mean Corp Hgb Conc 30.3 g/dL (32-36); Mean Corpuscular Hgb 28.2 pg (27.0-32.0); Mean Corpuscular Volume 93.1 fL (80-94); Mean Platelet Vol. 13.1 fl (6.2-12.0); Monocyte# 1.11 X10^3/uL; Monocyte% 7.7 % (0-10); NRBC Flagged by Analyzer 0 % (0-5); Neutrophil # 11.58 X10^3/uL (2.7-7.7); Platelet Count 157 K/mm3 (150-450); Prothrombin Time (Protime)PT. 16.5 SECONDS (11.7-14.9); RBC Distribution Width CV 15.2 % (11.6-14.6); RBC Distribution Width SD 50.2 fl (35.1-43.9); Red Blood Count 2.48 M/mm3 (4.6-6.2); White Blood Count 14.5 K/mm3 (4.4-11.0)
--- NOTE | 2021-02-21 20:20 | PCS.PANDOC ---
PANDEMIC DOCUMENTATION INITIATED: Date: 11/22/2020 Time: 190
[2021-02-21] MEDS: Menthol/Lanolin/Calamine/Znox 113 GM Tube 1 APPLIC TOPICAL (22:27)
[2021-02-22] VITALS (13 sets, daily range): BP systolic 111–132; BP diastolic 64–77; PULSE 72–85; RESP 15–18; TEMP 36.4–36.8; O2SAT 97–100
[2021-02-22] MEDS: 0.9% Normal Saline 1,000 ML 100 ML IV ×2 (06:20→16:26)
[2021-02-22 06:31] LABS: Absolute Lymphocyte Count 1.83 X10^3/uL (0.83-4.51); Absolute Neutrophil Count 6.2 X10^3/uL (2.0-7.7); Basophil# 0.05 X10^3/uL; Basophil% 0.5 % (0-1); Eosinophil# 0.14 X10^3/uL; Eosinophils% 1.5 % (0-5); Hemoglobin 6.7 g/dL (13.0-16.5); Lymphocyte # 1.83 X10^3/ul (0.83-4.51); Lymphocyte % 19.9 % (19-41); Mean Corp Hgb Conc 31.9 g/dL (32-36); Mean Corpuscular Hgb 28.6 pg (27.0-32.0); Mean Corpuscular Volume 89.7 fL (80-94); Mean Platelet Vol. 12.9 fl (6.2-12.0); Monocyte# 0.99 X10^3/uL; Monocyte% 10.8 % (0-10); NRBC Flagged by Analyzer 0 % (0-5); Neutrophil # 6.15 X10^3/uL (2.7-7.7); Platelet Count 118 K/mm3 (150-450); RBC Distribution Width CV 15.9 % (11.6-14.6); RBC Distribution Width SD 49.7 fl (35.1-43.9); Red Blood Count 2.34 M/mm3 (4.6-6.2); White Blood Count 9.2 K/mm3 (4.4-11.0)
[2021-02-22 07:01] LABS: Anion Gap 6 (5-15); BUN 33 mg/dL (7-18); BUN/Creat Ratio 44.1 RATIO (10-20); Calcium,Total 7.8 mg/dL (8.5-10.1); Chloride 116 mmol/L (98-107); Creatinine, Serum 0.75 mg/dL (0.70-1.30); EST Glomerular Filtration Rate 117 mL/min (>60); Est Glom Filt Rate - Afr Amer 141 mL/min (>60); Estimated Creatinine Clearance 116.52 ml/min; Glucose 132 mg/dL (74-106); Potassium 3.8 mmol/L (3.5-5.1); Sodium Level 143 mmol/L (136-145)
[2021-02-22] MEDS: Ceftriaxone 1 GM/50 ML BAG IV (09:28)
[2021-02-22] MEDS: Menthol/Lanolin/Calamine/Znox 113 GM Tube 1 APPLIC TOPICAL ×2 (09:28→21:39)
--- NOTE | 2021-02-22 13:30 | PN.HOSP_ITS ---
Subjective Subjective Doing well, denies any further episodes of hematemesis. Abdominal distention and pain are resolved Objective Data Objective Data Vital Signs: Vital Signs Temp Pulse Resp BP Pulse Ox 98.2 F 73 15 125/72 H 97 02/22/21 10:59 02/22/21 11:26 02/22/21 10:59 02/22/21 10:59 02/22/21 10:59 Oxygen Delivery Method Room Air Weight: 191 lb 2.252 oz Body Mass Index (BMI) 28.2 Intake & Output: Intake and Output for Last 24 Hours 02/21/21 02/22/21 02/23/21 03:59 03:59 03:59 Intake Total 1191.67 / 1191.67 3312.75 / 3312.75 1315 / 1315 Output Total 300 / 300 100 / 100 Balance 891.67 / 891.67 3212.75 / 3212.75 1315 / 1315 Lab / Micro Data Result Diagrams: 02/22/21 05:50 02/22/21 05:50 Labs: Laboratory Results - last 24 hr 02/20/21 13:51: Crossmatch See Detail 02/20/21 13:52: Crossmatch See Detail 02/21/21 13:58: Hgb 8.0 L, Hct 25.6 L 02/21/21 17:21: PT 16.5 H, INR 1.4 02/21/21 17:21: WBC 14.5 H, RBC 2.48 L, Hgb 7.0 L, Hct 23.1 L, MCV 93.1, MCH 28.2, MCHC 30.3 L, RDW Std Deviation 50.2 H, RDW Coeff of Jumana 15.2 H, Plt Count 157, MPV 13.1 H, Immature Gran % (Auto) 0.700, Neut % (Auto) 80.0 H, Lymph % (Auto) 10.9 L, [place] % (Auto) 7.7, Eos % (Auto) 0.4, Baso % (Auto) 0.3, Absolute Neuts (auto) 11.6 H, Absolute Lymphs (auto) 1.58, Nucleated RBC % 0 02/22/21 05:50: WBC 9.2, RBC 2.34 L, Hgb 6.7 L, Hct 21.0 L, MCV 89.7, MCH 28.6, MCHC 31.9 L D, RDW Std Deviation 49.7 H, RDW Coeff of Jumana 15.9 H, Plt Count 118 L, MPV 12.9 H, Immature Gran % (Auto) 0.300, Neut % (Auto) 67.0, Lymph % (Auto) 19.9, [place] % (Auto) 10.8 H, Eos % (Auto) 1.5, Baso % (Auto) 0.5, Absolute Neuts (auto) 6.2, Absolute Lymphs (auto) 1.83, Nucleated RBC % 0 02/22/21 05:50: Sodium 143, Potassium 3.8, Chloride 116 H, Carbon Dioxide 21.0, Anion Gap 6, BUN 33 H, Creatinine 0.75, Estim Creat Clear Calc 116.52, Est GFR (MDRD) Af Amer 141, Est GFR (MDRD) Non-Af 117, BUN/Creatinine Ratio 44.1 H, Glucose 132 H, Calcium 7.8 L Micro: Microbiology 02/21/21 08:15 Nasal Secretion SARS-CoV-2 Antigen (Rapid) - Final Physical Exam Const alert, oriented x3 and no apparent distress General Appearance: cooperative HEENT normocephalic and moist oral mucous membranes Eyes PERRL, EOMs intact bilaterally and conjunctivae normal Neck supple and no JVD Resp normal respiratory effort, no retractions, no use of accessory muscles and clear to auscultation bilaterally Auscultation: Negative for crackles, rales, rhonchi or wheezes Cardio regular rate, regular rhythm, S1 normal heart sound, S2 normal heart sound and no murmurs GI soft to palpation and non-distended; Negative for hepatosplenomegaly Palpation: tender epigastric Extremity no clubbing, cyanosis or edema Skin no rashes or lesions noted Neuro no focal motor deficits and no sensory deficits noted Psych affect normal Appearance: appropriate Assessment & Plan Assessment/Plan (1) Acute upper gastrointestinal bleeding: (2) Portal hypertension: PLAN: 1. Acute upper GI bleeding/portal hypertension -Continue with n.p.o. and Protonix placed on octreotide by GI secondary to the varix that had to be banded yesterday -Appreciate general surgery and GI for assistance -Plan for 2 units blood transfusion today -Continue with IV fluids, can hold the fluids while blood is being infused -CIWA's have been negative therefore discontinued, however given the evidence of varices in the stomach I have advised him to discontinue drinking completely on discharge DVT: SCDs Charges/Coding Visit Charges Inpatient E&M: 05684 Subs Hosp L2
[2021-02-22 17:26] LABS: Hematocrit 27.5 % (40-54); Hemoglobin 9.2 g/dL (13.0-16.5)
--- NOTE | 2021-02-22 19:11 | PN.GI_ITS ---
Subjective Subjective Patient is not had any signs of GI bleeding. He is not having any abdominal pain. He is not having any nausea. I had a conversation with his on the phone. Objective Data Objective Data Vital Signs: Vital Signs Temp Pulse Resp BP Pulse Ox 98.0 F 72 16 129/73 H 99 02/22/21 17:50 02/22/21 17:50 02/22/21 17:50 02/22/21 17:50 02/22/21 17:50 Oxygen Delivery Method Room Air Weight: 191 lb 2.252 oz Body Mass Index (BMI) 28.2 Intake & Output: Intake and Output for Last 24 Hours 02/20/21 02/21/21 02/22/21 23:59 23:59 23:59 Intake Total 285 / 285 4171.67 / 4171.67 3013.75 / 3013.75 Output Total 300 / 300 100 / 100 Balance -15 / -15 4071.67 / 4071.67 3013.75 / 3013.75 Lab / Micro Data Result Diagrams: 02/22/21 17:10 02/22/21 05:50 Labs: Laboratory Results - last 24 hr 02/20/21 13:51: Crossmatch See Detail 02/20/21 13:52: Crossmatch See Detail 02/22/21 05:50: WBC 9.2, RBC 2.34 L, Hgb 6.7 L, Hct 21.0 L, MCV 89.7, MCH 28.6, MCHC 31.9 L D, RDW Std Deviation 49.7 H, RDW Coeff of Jumana 15.9 H, Plt Count 118 L, MPV 12.9 H, Immature Gran % (Auto) 0.300, Neut % (Auto) 67.0, Lymph % (Auto) 19.9, [place] % (Auto) 10.8 H, Eos % (Auto) 1.5, Baso % (Auto) 0.5, Absolute Neuts (auto) 6.2, Absolute Lymphs (auto) 1.83, Nucleated RBC % 0 02/22/21 05:50: Sodium 143, Potassium 3.8, Chloride 116 H, Carbon Dioxide 21.0, Anion Gap 6, BUN 33 H, Creatinine 0.75, Estim Creat Clear Calc 116.52, Est GFR (MDRD) Af Amer 141, Est GFR (MDRD) Non-Af 117, BUN/Creatinine Ratio 44.1 H, Gl ucose 132 H, Calcium 7.8 L 02/22/21 17:10: Hgb 9.2 L, Hct 27.5 L Micro: Microbiology 02/21/21 08:15 Nasal Secretion SARS-CoV-2 Antigen (Rapid) - Final Physical Exam Const alert General Appearance: cooperative Orientation / Consciousness: oriented to person HEENT hearing grossly normal bilaterally Head and Scalp: normal to inspection Face and Sinus: face symmetric Nose: external nose normal Mouth: oral and palatal mucosa normal Eyes conjunctivae normal General Eye: normal appearance of both eyes Neck full ROM General: normal visual inspection Lymph Lymphatic: no lymphadenopathy noted Chest inspection of chest normal and palpation of chest normal Chest: symmetrical chest wall rise Resp normal respiratory effort Effort and Inspection: able to speak in complete sentences Cardio regular rate GI non-distended Percussion: normal to percussion Rectal Exam: deferred Neuro Speech: speech normal Gait (Neuro): normal gait Assessment & Plan Assessment/Plan (1) Portal hypertension: PLAN: Portal pretension likely secondary to cirrhosis. I will order CT scan abdomen pelvis. He will also need alpha-fetoprotein, CRP, ESR. He is not showing any signs of hyperammonia anemia at this time. He will also need to be checked for hepatitis C as an outpatient. (2) Thrombocytopenia: PLAN: Thrombocytopenia secondary to splenic sequestration and likely secon geo to portal hypertension. (3) Acute upper gastrointestinal bleeding: PLAN: He will undergo in repeat upper endoscopy tomorrow. Patient will stay on octreotide and PPI drip. I have discussed the risk and benefits of midodrine and nadolol therapy with the patient. This is to prevent further variceal bleeding in the future. This can be addressed as an outpatient.
[2021-02-23] VITALS (15 sets, daily range): BP systolic 104–128; BP diastolic 58–85; PULSE 60–90; RESP 14–20; TEMP 36.5–37.4; O2SAT 96–100; BMI 28.2
[2021-02-23] MEDS: 0.9% Normal Saline 1,000 ML 100 ML IV (02:26)
[2021-02-23 06:30] LABS: Absolute Lymphocyte Count 1.05 X10^3/uL (0.83-4.51); Absolute Neutrophil Count 3.6 X10^3/uL (2.0-7.7); Basophil# 0.03 X10^3/uL; Basophil% 0.6 % (0-1); Eosinophil# 0.18 X10^3/uL; Eosinophils% 3.4 % (0-5); Hemoglobin 8.4 g/dL (13.0-16.5); Lymphocyte # 1.05 X10^3/ul (0.83-4.51); Lymphocyte % 19.7 % (19-41); Mean Corp Hgb Conc 32.3 g/dL (32-36); Mean Corpuscular Hgb 29.2 pg (27.0-32.0); Mean Corpuscular Volume 90.3 fL (80-94); Mean Platelet Vol. 11.8 fl (6.2-12.0); Monocyte% 9.4 % (0-10); NRBC Flagged by Analyzer 0 % (0-5); Neutrophil # 3.55 X10^3/uL (2.7-7.7); Neutrophil % 66.5 % (47-70); POSITIVE COUNT YES; Platelet Count 90 K/mm3 (150-450); RBC Distribution Width SD 47.1 fl (35.1-43.9); Red Blood Count 2.88 M/mm3 (4.6-6.2); White Blood Count 5.3 K/mm3 (4.4-11.0)
--- NOTE | 2021-02-23 06:45 | US_ITS ---
STUDY: ABDOMINAL ULTRASOUND - RIGHT UPPER QUADRANT REASON FOR VISIT: Male, 50 years old cirrhosis ,portal hypertension, GI bleed. TECHNIQUE: Ultrasound evaluation of the right upper quadrant was performed with real-time and static jeffers-scale imaging. TECHNICAL QUALITY: Adequate. COMPARISON: None. FINDINGS: Liver: The liver is enlarged and measures 2.7 cm. There is a heterogeneous echogenicity of the liver. The bile ducts are within normal limits. There is hepatic color flow. The direction of portal flow is hepatopetal. There is no demonstrated mass lesion. Gallbladder: Normal distended gallbladder. The gallbladder wall is thickened and measures 7.9 mm. There is a negative sonographic Donovan''s sign. There is pericholecystic fluid. There are no gallstones. Common Bile Duct (C.B.D.): The common bile duct measures 3 mm. Pancreas: Normal size of the head, body and tail of the pancreas. There is increased echogenicity of the pancreas. There is no demonstrated pancreatic mass or cyst. Right Kidney: Normal size of the right kidney. The right kidney measures 10.6 cm x 5.9 cm x 5.5 cm. Normal renal cortex. The right cortex measures 1.2 cm. There is no demonstrated renal mass or cyst. There is no right hydronephrosis. US/Liver IMPRESSION: Hepatomegaly with a heterogeneous echotexture of the liver. Gallbladder wall thickening and pericholecystic fluid. Ascites. Incidental note is made of splenomegaly. Electronically Signed: Donato Akhtar MD at 13:43 EST , Service support ,
[2021-02-23 06:57] LABS: Anion Gap 3 (5-15); BUN 23 mg/dL (7-18); BUN/Creat Ratio 30.3 RATIO (10-20); Calcium,Total 7.6 mg/dL (8.5-10.1); Chloride 115 mmol/L (98-107); Creatinine, Serum 0.76 mg/dL (0.70-1.30); EST Glomerular Filtration Rate 115 mL/min (>60); Est Glom Filt Rate - Afr Amer 139 mL/min (>60); Estimated Creatinine Clearance 114.99 ml/min; Glucose 106 mg/dL (74-106); Potassium 3.5 mmol/L (3.5-5.1); Sodium Level 140 mmol/L (136-145)
[2021-02-23] MEDS: Epinephrine (1 mg/ml) 1 MG/ML VIAL ×2 (08:40)
[2021-02-23] MEDS: 0.9% Normal Saline (Pres. free 10 ML Vial ×2 (08:40)
--- NOTE | 2021-02-23 08:59 | OP.EGD_ITS ---
Patient Name: Kevin Moncada Procedure Date: 02/23/2021 8:07 AM Date of : 1970 Age: 50 Procedure: Upper GI endoscopy Indications: Acute variceal bleeding Providers: Jet Tenorio DO Medicines: Propofol per Anesthesia Patient Profile: This is a 50 year old male. Refer to note in patient chart for documentation of history and physical. Patient has symptoms. He is status post EGD for treatment of bleeding recently. Complications: No immediate complications. Procedure: Pre-Anesthesia Assessment: - Prior to the procedure, a History and Physical was performed, and patient medications and allergies were reviewed. The patient is competent. The risks and benefits of the procedure and the sedation options and risks were discussed with the patient. All questions were answered and informed consent was obtained. Patient identification and proposed procedure were verified by the physician in the pre-procedure area. Mental Status Examination: alert and oriented. Airway Examination: normal oropharyngeal airway and neck mobility. Respiratory Examination: clear to auscultation. CV Examination: normal. Prophylactic Antibiotics: The patient does not require prophylactic antibiotics. Prior Anticoagulants: The patient has taken no previous anticoagulant or antiplatelet agents. ASA Grade Assessment: II - A patient with mild systemic disease. After reviewing the risks and benefits, the patient was deemed in satisfactory condition to undergo the procedure. The anesthesia plan was to use moderate sedation / analgesia (conscious sedation). Immediately prior to administration of medications, the patient was re-assessed for adequacy to receive sedatives. The heart rate, respiratory rate, oxygen saturations, blood pressure, adequacy of pulmonary ventilation, and response to care were monitored throughout the procedure. The physical status of the patient was re-assessed after the procedure. After obtaining informed consent, the endoscope was passed under direct vision. Throughout the procedure, the patient's blood pressure, pulse, and oxygen saturations were monitored continuously. The Endoscope was introduced through the mouth, and advanced to the second part of duodenum. The upper GI endoscopy was accomplished without difficulty. The patient tolerated the procedure well. Moderate Sedation: Moderate (conscious) sedation was administered by the endoscopy nurse and supervised by the endoscopist. The patient's oxygen saturation, heart rate, blood pressure and response to care were monitored. Total physician intraservice time was 15 minutes. Scope In: 8:20:46 AM Scope Out: 8:47:17 AM Total Procedure Duration Time 0 hours 26 minutes 31 seconds Findings: Four columns of oozing grade III varices were found in the entire esophagus,. They were 7 mm in largest diameter. Stigmata of recent bleeding were evident and red betty signs were present. Stigmata of prior treatment were evident. Two bands were successfully placed with incomplete eradication of varices. There was no bleeding during the procedure. Type 1 gastroesophageal varices (GOV1, esophageal varices which extend along the lesser curvature) with stigmata of prior treatment and oozing blood were found in the cardia. There were stigmata of recent bleeding. They were 7 mm in largest diameter. These were [Result] injected with [1 and 10,000 of epinephrine] {skip} for [Reason]. Coagulation for destruction of remaining portion of lesion using heater probe was successful. Estimated blood loss was minimal. Severe portal hypertensive gastropathy was found in the entire examined stomach. The second portion of the duodenum was normal. Impression: - Bleeding grade III esophageal varices. Incompletely eradicated. Banded. - Type 1 gastroesophageal varices (GOV1, esophageal varices which extend along the lesser curvature), previously treated and oozing blood. Injected. Treated with a heater probe. - Portal hypertensive gastropathy. - Normal second portion of the duodenum. - No specimens collected. Recommendation: - Return patient to [facility] for [facility] care. - Clear liquid diet today. - No aspirin, ibuprofen, naproxen, or other non-steroidal anti-inflammatory drugs for 8 weeks. - Use Protonix (pantoprazole) 40 mg PO BID for 12 weeks. - Use misoprostol 100 micrograms PO QID for 4 weeks. - Nadolol 10 mg twice daily - Lasix 20 mg a day - Spironolactone 25 mg a day - Await ultrasound of the liver for ascites and portal vein thrombosis or hepatic vein thrombosis analysis - Repeat upper endoscopy in 1 week for endoscopic band ligation. - Return to GI office in 2 weeks. Procedure Code(s): --- Professional --- 84912, 59, Esophagogastroduodenoscopy, flexible, transoral; with band ligation of esophageal/gastric varices 08063, Esophagogastroduodenoscopy, flexible, transoral; with ablation of tumor(s), polyp(s), or other lesion(s) (includes pre- and post-dilation and guide wire passage, when performed) G0500, Moderate sedation services provided by the same physician or other qualified health child care specialist performing a gastrointestinal endoscopic service that sedation supports, requiring the presence of an independent trained observer to assist in the monitoring of the patient's level of consciousness and physiological status; initial 15 minutes of intra-service time; patient age 5 years or older (additional time may be reported with 94986, as appropriate) Diagnosis Code(s): --- Professional --- I85.01, Esophageal varices with bleeding I86.4, Gastric varices K92.2, Gastrointestinal hemorrhage, unspecified K76.6, Portal hypertension K31.89, Other diseases of stomach and duodenum CPT copyright 2017 [employer]. All rights reserved. The codes documented in this report are preliminary and upon community service organization director review may be revised to meet current compliance requirements. Jet Tenorio DO 02/23/2021 8:58:50 AM This report has been signed electronically. Number of Addenda: 1 Note Initiated On: 02/23/2021 8:07 AM Addendum Number: 1 Addendum Date: 12/09/2021 6:25:29 AM MAC was used instead of moderate sedation for this patient. Jet Tenorio DO 12/09/2021 6:25:34 AM This report has been signed electronically.
[2021-02-23] MEDS: Acetaminophen 325 MG Tablet 650 MG PO (10:21)
--- NOTE | 2021-02-23 11:00 | PCM.PN.HOSP ---
Subjective Subjective Doing well, no issues overnight. Plan is for repeat endoscopy today for further evaluation of his esophagus and stomach for any new varices and to check the current status of his previous varices was banded. Objective Data Objective Data Vital Signs: Vital Signs Temp Pulse Resp BP Pulse Ox 98.2 F 89 20 H 128/84 H 99 02/23/21 10:14 02/23/21 10:14 02/23/21 10:14 02/23/21 10:14 02/23/21 10:14 Oxygen Delivery Method Room Air Weight: 191 lb 2.252 oz Body Mass Index (BMI) 28.2 Intake & Output: Intake and Output for Last 24 Hours 02/22/21 02/23/21 02/24/21 03:59 03:59 03:59 Intake Total 3312.75 / 3312.75 4076 / 4076 0 / 0 Output Total 100 / 100 200 / 200 Balance 3212.75 / 3212.75 4076 / 4076 -200 / -200 Lab / Micro Data Result Diagrams: 02/23/21 06:14 02/23/21 06:14 Labs: Laboratory Results - last 24 hr 02/20/21 13:52: Crossmatch See Detail 02/22/21 17:10: Hgb 9.2 L, Hct 27.5 L 02/23/21 06:14: WBC 5.3, RBC 2.88 L, Hgb 8.4 L, Hct 26.0 L, MCV 90.3, MCH 29.2, MCHC 32.3, RDW Std Deviation 47.1 H, RDW Coeff of Jumana 15.0 H, Plt Count 90 L, MPV 11.8, Immature Gran % (Auto) 0.400, Neut % (Auto) 66.5, Lymph % (Auto) 19.7, [place] % (Auto) 9.4, Eos % (Auto) 3.4, Baso % (Auto) 0.6, Absolute Neuts (auto) 3.6, Absolute Lymphs (auto) 1.05, Nucleated RBC % 0 02/23/21 06:14: Sodium 140, Potassium 3.5, Chloride 115 H, Carbon Dioxide 22.0, Anion Gap 3 L, BUN 23 H, Creatinine 0.76, Estim Creat Clear Calc 114.99, Est GFR (MDRD) Af Amer 139, Est GFR (MDRD) Non-Af 115, BUN/Creatinine Ratio 30.3 H, Glucose 106, Calcium 7.6 L Micro: Microbiology 02/21/21 08:15 Nasal Secretion SARS-CoV-2 Antigen (Rapid) - Final Physical Exam Const alert, oriented x3 and no apparent distress General Appearance: cooperative HEENT normocephalic and moist oral mucous membranes Eyes PERRL, EOMs intact bilaterally and conjunctivae normal Neck supple and no JVD Resp normal respiratory effort, no retractions, no use of accessory muscles and clear to auscultation bilaterally Auscultation: Negative for crackles, rales, rhonchi or wheezes Cardio regular rate, regular rhythm, S1 normal heart sound, S2 normal heart sound and no murmurs GI soft to palpation and non-distended; Negative for hepatosplenomegaly Palpation: tender epigastric Extremity no clubbing, cyanosis or edema Skin no rashes or lesions noted Neuro no focal motor deficits and no sensory deficits noted Psych affect normal Appearance: appropriate Assessment & Plan Assessment/Plan (1) Acute upper gastrointestinal bleeding: (2) Portal hypertension: PLAN: 1. Acute upper GI bleeding/portal hypertension -May be able to have clears after endoscopy today, continue with Protonix and placed on octreotide by GI secondary to the varix that had to be banded previously -Appreciate general surgery and GI for assistance -He was seen units yesterday, hemoglobin today is 8.4. We will recheck this afternoon and if necessary can transfuse another unit. -We will DC IV fluids if he is able to take p.o. after endoscopy today -Continue with nadolol, Aldactone, Lasix given his new onset portal hypertension DVT: SCDs Charges/Coding Visit Charges Inpatient E&M: 37996 Subs Hosp L2
[2021-02-23] MEDS: Nadolol 20 MG Tablet 10 MG PO ×2 (12:10→20:54)
[2021-02-23] MEDS: Furosemide 20 MG Tablet PO (12:11)
[2021-02-23] MEDS: Menthol/Lanolin/Calamine/Znox 113 GM Tube 1 APPLIC TOPICAL ×2 (12:11→20:53)
[2021-02-23] MEDS: Spironolactone 25 MG Tablet PO (12:11)
[2021-02-23] MEDS: miSOPROStol 100 MCG TABLET PO ×3 (12:11→20:54)
[2021-02-23] MEDS: Ceftriaxone 1 GM/50 ML BAG IV (12:28)
[2021-02-23 13:17] LABS: Hematocrit 26.1 % (40-54); Hemoglobin 8.5 g/dL (13.0-16.5); POSITIVE COUNT YES
--- NOTE | 2021-02-23 13:40 | OP.EGD_ITS ---
Patient Name: Kevin Moncada Procedure Date: 02/21/2021 4:15 PM Date of : 1970 Age: 50 Procedure: Upper GI endoscopy Indications: Cirrhosis with UGI bleeding suspected esophageal varices Providers: Jet Tenorio DO Medicines: See the Anesthesia note for documentation of the administered medications Patient Profile: This is a 50 year old male. Refer to note in patient chart for documentation of history and physical. Patient has symptoms of acute abdominal distention and acute vomiting. He is status post EGD for treatment of bleeding recently. Complications: No immediate complications. Procedure: Pre-Anesthesia Assessment: - Prior to the procedure, a History and Physical was performed, and patient medications and allergies were reviewed. The patient's tolerance of previous anesthesia was also reviewed. The risks and benefits of the procedure and the sedation options and risks were discussed with the patient. All questions were answered, and informed consent was obtained. Prior Anticoagulants: The patient has taken no previous anticoagulant or antiplatelet agents. After reviewing the risks and benefits, the patient was deemed in satisfactory condition to undergo the procedure. After obtaining informed consent, the endoscope was passed under direct vision. Throughout the procedure, the patient's blood pressure, pulse, and oxygen saturations were monitored continuously. The Endoscope was introduced through the mouth, and advanced to the second part of duodenum. The upper GI endoscopy was accomplished without difficulty. The patient tolerated the procedure well. Moderate Sedation: Moderate (conscious) sedation was administered by the endoscopy nurse and supervised by the endoscopist. The patient's oxygen saturation, heart rate, blood pressure and response to care were monitored. Total physician intraservice time was 15 minutes. Scope In: 4:29:39 PM Scope Out: 4:37:49 PM Total Procedure Duration Time 0 hours 8 minutes 10 seconds Findings: Four columns of oozing grade III varices were found in the entire esophagus,. They were 34 mm in largest diameter. Stigmata of recent bleeding were evident and red betty signs were present. The varices appeared unchanged in size from prior exam. Two bands were successfully placed with incomplete eradication of varices. There was no bleeding during the procedure. Type 1 gastroesophageal varices (GOV1, esophageal varices which extend along the lesser curvature) with spurting blood were found in the cardia. There were stigmata of recent bleeding. They were 5 mm in largest diameter. Two bands were successfully placed with complete eradication, resulting in deflation of varices. Bleeding had stopped at the end of the procedure. Severe portal hypertensive gastropathy was found in the stomach. The second portion of the duodenum was normal. Impression: - Bleeding grade III esophageal varices. Incompletely eradicated. Banded. - Type 1 gastroesophageal varices (GOV1, esophageal varices which extend along the lesser curvature), spurting blood. Completely eradicated. Banded. - Portal hypertensive gastropathy. - Normal second portion of the duodenum. - No specimens collected. Recommendation: - Return patient to hospital [facility] for ongoing care. - NPO today. - Continue present medications. Procedure Code(s): --- Professional --- 52384, 59, Esophagogastroduodenoscopy, flexible, transoral; with band ligation of esophageal/gastric varices G0500, Moderate sedation services provided by the same physician or other qualified health direct care staffer performing a gastrointestinal endoscopic service that sedation supports, requiring the presence of an independent trained observer to assist in the monitoring of the patient's level of consciousness and physiological status; initial 15 minutes of intra-service time; patient age 5 years or older (additional time may be reported with 46704, as appropriate) Diagnosis Code(s): --- Professional --- K74.60, Unspecified cirrhosis of liver I85.11, Secondary esophageal varices with bleeding I86.4, Gastric varices K76.6, Portal hypertension K31.89, Other diseases of stomach and duodenum CPT copyright 2017 [employer]. All rights reserved. The codes documented in this report are preliminary and upon kiln car unloader review may be revised to meet current compliance requirements. Jet Tenorio DO 02/23/2021 1:39:53 PM This report has been signed electronically. Number of Addenda: 1 Note Initiated On: 02/21/2021 4:15 PM Addendum Number: 1 Addendum Date: 12/09/2021 6:23:14 AM MAC was used instead of moderate sedation for this patient. Jet Tenorio DO 12/09/2021 6:23:19 AM This report has been signed electronically.
--- NOTE | 2021-02-23 13:41 | OP.CCLET_ITS ---
12/09/2021 Aron Moya [address] [place] [address] Re : Upper GI endoscopy procedure for Kevin Moncada Dear Dr. Moya This procedure was performed on Sunday, February 21, 2021. My impressions and recommendations are as follows: Impressions : - Bleeding grade III esophageal varices. Incompletely eradicated. Banded. - Type 1 gastroesophageal varices (GOV1, esophageal varices which extend along the lesser curvature), spurting blood. Completely eradicated. Banded. - Portal hypertensive gastropathy. - Normal second portion of the duodenum. - No specimens collected. Recommendations : - Return patient to hospital [facility] for ongoing care. - NPO today. - Continue present medications. My findings are described in the full procedure note, which is enclosed. If I can be of further assistance, please feel free to contact me at . Sincerely, Jet Tenorio, 02/23/2021 1:39:53 PM This report has been signed electronically.
[2021-02-24 02:58] VITALS: PULSE 73
[2021-02-24 03:15] VITALS: BP 104/67; PULSE 66; RESP 12; TEMP 36.7; O2SAT 96
[2021-02-24 07:05] LABS: Absolute Lymphocyte Count 1.36 X10^3/uL (0.83-4.51); Absolute Neutrophil Count 3.6 X10^3/uL (2.0-7.7); Basophil# 0.03 X10^3/uL; Basophil% 0.5 % (0-1); Eosinophil# 0.18 X10^3/uL; Eosinophils% 3.1 % (0-5); Hematocrit 25.7 % (40-54); Hemoglobin 8.4 g/dL (13.0-16.5); Lymphocyte # 1.36 X10^3/ul (0.83-4.51); Lymphocyte % 23.8 % (19-41); Mean Corp Hgb Conc 32.7 g/dL (32-36); Mean Corpuscular Hgb 29.3 pg (27.0-32.0); Mean Corpuscular Volume 89.5 fL (80-94); Mean Platelet Vol. 12.5 fl (6.2-12.0); Monocyte# 0.58 X10^3/uL; Monocyte% 10.1 % (0-10); NRBC Flagged by Analyzer 0 % (0-5); Neutrophil # 3.55 X10^3/uL (2.7-7.7); Neutrophil % 62.2 % (47-70); Platelet Count 103 K/mm3 (150-450); RBC Distribution Width CV 15.4 % (11.6-14.6); RBC Distribution Width SD 47.3 fl (35.1-43.9); Red Blood Count 2.87 M/mm3 (4.6-6.2); White Blood Count 5.7 K/mm3 (4.4-11.0)
[2021-02-24 07:11] VITALS: PULSE 57
[2021-02-24 07:37] LABS: Anion Gap 5 (5-15); BUN 19 mg/dL (7-18); BUN/Creat Ratio 20.4 RATIO (10-20); Chloride 111 mmol/L (98-107); Creatinine, Serum 0.93 mg/dL (0.70-1.30); EST Glomerular Filtration Rate 91 mL/min (>60); Est Glom Filt Rate - Afr Amer 110 mL/min (>60); Estimated Creatinine Clearance 93.97 ml/min; Glucose 103 mg/dL (74-106); Potassium 3.7 mmol/L (3.5-5.1); Sodium Level 139 mmol/L (136-145)
[2021-02-24] MEDS: Furosemide 20 MG Tablet PO (08:27)
[2021-02-24] MEDS: Nadolol 20 MG Tablet 10 MG PO (08:27)
[2021-02-24] MEDS: Spironolactone 25 MG Tablet PO (08:28)
[2021-02-24] MEDS: miSOPROStol 100 MCG TABLET PO ×2 (08:28→11:09)
[2021-02-24] MEDS: Ceftriaxone 1 GM/50 ML BAG IV (08:59)
[2021-02-24 09:03] VITALS: BP 115/72; PULSE 72; RESP 14; TEMP 36.6; O2SAT 97
--- NOTE | 2021-02-24 09:35 | PCM.DC ---
Discharge Instructions Diet Discharge Diet: No restrictions Activity Discharge Activity: Return to Normal Activity Dressing / Incision Call your doctor if you observe: Inability to have a bowel movement and - (black or bloody stools, bloody emesis) Follow Up Care Please Follow Up With: FriendJet DO When: 2 weeks Test Results: Test results from this visit will be discussed in further detail at your follow-up appointment, if applicable. Discharge Plan Admission Admit Date/Time: 02/20/21 14:29 Primary Reason for Your Visit: GI bleed Attending Provider: Ricardo Hermosillo Primary Care Provider: Aron Moya Consulting Providers: Sergio Turner Discharge Orders/Prescriptions Prescriptions: New nadolol 20 mg Tablet 10 mg PO BID 30 Days Qty: 60 RF: 0 misoprostol 100 mcg Tablet 100 mcg PO 4X/DAY 28 Days Qty: 112 RF: 0 pantoprazole 40 mg tablet,delayed release (DR/EC) 40 mg PO BID 30 Days Qty: 60 RF: 0 Continued ipratropium-albuterol 0.5 mg-3 mg(2.5 mg base)/3 mL Solution For Nebulization PRN (Reason: Wheezing) RF: 0 Discontinued esomeprazole magnesium [Nexium 24HR] 20 mg Capsule,Delayed Release(Dr/Ec) 40 mg PO DAILY RF: 0 Referrals / Follow Up: Aron Moya MD [Primary Care Provider] - Disposition Disposition (needs filled in before D/C Order can be placed): Home, Self Care
--- NOTE | 2021-02-24 09:43 | PCM.DC.SUM ---
Documented by User: CHASE Chong 02/24/21 10:02 Providers Date of Admission: 02/20/21 Primary Care Physician: Dr. Aron Moya MD Consultations 02/20/21 15:34 Consult: General Surgery Routine Consulting Provider: Sergio Turner Reason for Consult: UGIB EMERGENT Consult: No MD Notified: Yes Date Notified: 02/20/21 Time Notified: 14:34 Method of Notification: Verbal Reason For Visit: UGIB Diagnosis Discharge Diagnosis (1) Acute upper gastrointestinal bleeding: Status: Acute Code(s): K92.2 - Gastrointestinal hemorrhage, unspecified (2) Portal hypertension: Status: Acute Code(s): K76.6 - Portal hypertension Medications at Discharge Home Medications ipratropium-albuterol ml PRN 02/20/21 misoprostol 100 mcg PO 4X/DAY 28 Days #112 tab 02/24/21 nadolol 10 mg PO BID 30 Days #60 tab 02/24/21 pantoprazole 40 mg PO BID 30 Days #60 tab 02/24/21 Hospital Course Procedures EGD and - Summary of Care Provided Minutes Spent on Discharge: 35 Hospital Course: Patient is a 50-year-old male who originally presented to the ER with an upper GI bleed. Patient underwent multiple EGDs during his hospitalization was found to have bleeding varices in the esophagus. Patient will follow up with Dr. Tenorio in 2 weeks in the office but Dr. Tenorio would like to do another EGD in approximately a week for endoscopic band ligation. Patient will be discharged home on nadolol, misoprostol, Protonix. Physical Exam Const alert, oriented x3 and no apparent distress General Appearance: cooperative HEENT normocephalic and head/scalp atraumatic Eyes conjunctivae normal and no scleral icterus Neck supple General: trachea midline Resp normal respiratory effort, normal air movement and clear to auscultation bilaterally Cardio regular rate, regular rhythm, S1 normal heart sound and S2 normal heart sound GI normal to inspection, nondistended, normoactive bowel sounds and soft to palpation Extremity normal capillary refill and no clubbing, cyanosis or edema General Extremity: no tenderness to palpation of joints or extremities Skin skin turgor normal General Skin Exam: no breakdown Lesions: no lesions Rashes: no rashes Neuro no focal motor deficits and no sensory deficits noted Speech: speech normal Gait (Neuro): normal gait Motor Exam: Negative for general weakness Psych affect normal Appearance: appropriate Weight / BMI Weight Weight: 191 lb 2.252 oz Body Mass Index (BMI) 28.2 ABG / Lab / Microbiology Data Result Diagrams: 02/24/21 06:35 02/24/21 06:35 Laboratory: Laboratory Results - last 24 hr 02/23/21 13:05: Hgb 8.5 L, Hct 26.1 L 02/24/21 06:35: WBC 5.7, RBC 2.87 L, Hgb 8.4 L, Hct 25.7 L, MCV 89.5, MCH 29.3, MCHC 32.7, RDW Std Deviation 47.3 H, RDW Coeff of Jumana 15.4 H, Plt Count 103 L, MPV 12.5 H, Immature Gran % (Auto) 0.300, Neut % (Auto) 62.2, Lymph % (Auto) 23.8, [place] % (Auto) 10.1 H, Eos % (Auto) 3.1, Baso % (Auto) 0.5, Absolute Neuts (auto) 3.6, Absolute Lymphs (auto) 1.36, Nucleated RBC % 0 02/24/21 06:35: Sodium 139, Potassium 3.7, Chloride 111 H, Carbon Dioxide 23.0, Anion Gap 5, BUN 19 H, Creatinine 0.93, Estim Creat Clear Calc 93.97, Est GFR (MDRD) Af Amer 110, Est GFR (MDRD) Non-Af 91, BUN/Creatinine Ratio 20.4 H, Glucose 103, Calcium 8.0 L Microbiology: Microbiology 02/21/21 08:15 Nasal Secretion SARS-CoV-2 Antigen (Rapid) - Final Radiography Diagnostic Testing: Radiology Impression Liver Ultrasound 02/23/21 06:45 IMPRESSION: Hepatomegaly with a heterogeneous echotexture of the liver. Gallbladder wall thickening and pericholecystic fluid. Ascites. Incidental note is made of splenomegaly. Electronically Signed: Donato Akhtar MD at 13:43 EST , Service support , D/C Instructions Discharge Diet: No restrictions Call your doctor if you observe: Inability to have a bowel movement and - (black or bloody stools, bloody emesis) Please Follow Up With: Jet Tenorio DO When: 2 weeks Meaningful Use Info Meaningful Use Diagnoses (Choose all that apply): None applicable Discharge Plan Admission Admit Date/Time: 02/20/21 14:29 Primary Reason for Your Visit: GI bleed Attending Provider: Ricardo Hermosillo Primary Care Provider: Aron Moya Consulting Providers: Sergio Turner Discharge Orders/Prescriptions Prescriptions: New nadolol 20 mg Tablet 10 mg PO BID 30 Days Qty: 60 RF: 0 misoprostol 100 mcg Tablet 100 mcg PO 4X/DAY 28 Days Qty: 112 RF: 0 pantoprazole 40 mg tablet,delayed release (DR/EC) 40 mg PO BID 30 Days Qty: 60 RF: 0 Continued ipratropium-albuterol 0.5 mg-3 mg(2.5 mg base)/3 mL Solution For Nebulization PRN (Reason: Wheezing) RF: 0 Discontinued esomeprazole magnesium [Nexium 24HR] 20 mg Capsule,Delayed Release(Dr/Ec) 40 mg PO DAILY RF: 0 Referrals / Follow Up: Aron Moya MD [Primary Care Provider] - (Please call and setup an appointment. ) Jet Tenorio DO [STAFF PHYSICIAN] - In 1 Week (Please call the office to set up follow up EGD as well as 2 week follow up in office) Disposition Disposition (needs filled in before D/C Order can be placed): Home, Self Care Documented by User: Dr. Ricardo Hermosillo DO 02/24/21 12:14 Providers Date of Admission: 02/20/21 Reason For Visit: UGIB Medications at Discharge Home Medications ipratropium-albuterol ml PRN 02/20/21 misoprostol 100 mcg PO 4X/DAY 28 Days #112 tab 02/24/21 nadolol 10 mg PO BID 30 Days #60 tab 02/24/21 pantoprazole 40 mg PO BID 30 Days #60 tab 02/24/21 ABG / Lab / Microbiology Data Result Diagrams: 02/24/21 06:35 02/24/21 06:35 Discharge Plan Admission Admit Date/Time: 02/20/21 14:29 Primary Reason for Your Visit: GI bleed Attending Provider: Ricardo Hermosillo Primary Care Provider: Aron Moya Consulting Providers: Sergio Turner Discharge Orders/Prescriptions Prescriptions: New nadolol 20 mg Tablet 10 mg PO BID 30 Days Qty: 60 RF: 0 misoprostol 100 mcg Tablet 100 mcg PO 4X/DAY 28 Days Qty: 112 RF: 0 pantoprazole 40 mg tablet,delayed release (DR/EC) 40 mg PO BID 30 Days Qty: 60 RF: 0 Continued ipratropium-albuterol 0.5 mg-3 mg(2.5 mg base)/3 mL Solution For Nebulization PRN (Reason: Wheezing) RF: 0 Discontinued esomeprazole magnesium [Nexium 24HR] 20 mg Capsule,Delayed Release(Dr/Ec) 40 mg PO DAILY RF: 0 Referrals / Follow Up: Aron Moya MD [Primary Care Provider] - (Please call and setup an appointment. ) Jet Tenorio DO [STAFF PHYSICIAN] - In 1 Week (Please call the office to set up follow up EGD as well as 2 week follow up in office) Disposition Disposition (needs filled in before D/C Order can be placed): Home, Self Care
--- NOTE | 2021-02-24 17:42 | EX.PCM.PN.GI ---
Subjective Subjective Patient is doing well without any signs of GI bleeding. He underwent upper endoscopy yesterday. He is eating. He is not having any melena. He has no chest pain or shortness of breath. He underwent esophageal banding yesterday. Objective Data Objective Data Vital Signs: Vital Signs Temp Pulse Resp BP Pulse Ox 97.8 F 72 14 115/72 97 02/24/21 09:03 02/24/21 09:03 02/24/21 09:03 02/24/21 09:03 02/24/21 09:03 Oxygen Delivery Method Room Air Weight: 191 lb 2.252 oz Body Mass Index (BMI) 28.2 Intake & Output: Intake and Output for Last 24 Hours 02/22/21 02/23/21 02/24/21 23:59 23:59 23:59 Intake Total 3123.75 / 3123.75 3721 / 3721 160 / 160 Output Total 200 / 200 Balance 3123.75 / 3123.75 3521 / 3521 160 / 160 Lab / Micro Data Result Diagrams: 02/24/21 06:35 02/24/21 06:35 Labs: Laboratory Results - last 24 hr 02/24/21 06:35: WBC 5.7, RBC 2.87 L, Hgb 8.4 L, Hct 25.7 L, MCV 89.5, MCH 29.3, MCHC 32.7, RDW Std Deviation 47.3 H, RDW Coeff of Jumana 15.4 H, Plt Count 103 L, MPV 12.5 H, Immature Gran % (Auto) 0.300, Neut % (Auto) 62.2, Lymph % (Auto) 23.8, [place] % (Auto) 10.1 H, Eos % (Auto) 3.1, Baso % (Auto) 0.5, Absolute Neuts (auto) 3.6, Absolute Lymphs (auto) 1.36, Nucleated RBC % 0 02/24/21 06:35: Sodium 139, Potassium 3.7, Chloride 111 H, Carbon Dioxide 23.0, Anion Gap 5, BUN 19 H, Creatinine 0.93, Estim Creat Clear Calc 93.97, Est GFR (MDRD) Af Amer 110, Est GFR (MDRD) Non-Af 91, BUN/Creatinine Ratio 20.4 H, Glucose 103, Calcium 8.0 L Micro: Microbiology 02/21/21 08:15 Nasal Secretion SARS-CoV-2 Antigen (Rapid) - Final Physical Exam Const alert General Appearance: cooperative Orientation / Consciousness: oriented to person HEENT hearing grossly normal bilaterally Head and Scalp: normal to inspection Face and Sinus: face symmetric Nose: external nose normal Mouth: oral and palatal mucosa normal Eyes conjunctivae normal General Eye: normal appearance of both eyes Neck full ROM General: normal visual inspection Lymph Lymphatic: no lymphadenopathy noted Chest inspection of chest normal and palpation of chest normal Chest: symmetrical chest wall rise Resp normal respiratory effort Effort and Inspection: able to speak in complete sentences Cardio regular rate GI non-distended Percussion: normal to percussion Rectal Exam: deferred Neuro Speech: speech normal Gait (Neuro): normal gait Assessment & Plan Assessment/Plan (1) Portal hypertension: PLAN: Patient has put hypertension secondary to alcoholic cirrhosis. He will need to take nadolol 10 mg twice daily. This should hopefully decrease his portal hypertension. His abdominal ultrasound showed ascites without signs of thrombosis and hepatic or portal veins. We did not place him on midodrine at this time. 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 His platelet count SD increased which is good. (3) Acute upper gastrointestinal bleeding: PLAN: Upper GI bleed secondary to acute variceal bleed. He was treated endoscopically. On repeat endoscopy there was no stigmata of bleeding. Bands were placed to the proximal esophageal varices. He will be on nadolol 10 mg twice daily. He will be on Protonix 40 mg twice daily. Charges/Coding Visit Charges Inpatient E&M: 09994 Subs Hosp L3
== END 2021-02-24 11:25 | disposition home or self-care (01) | DRG 369 ==
LOC: ED 14:47 → PCU 15:05
PROVIDERS: Internal Medicine Gastroenterology; Surgery; Admitting Provider Family Medicine; Emergency Provider Emergency Medicine; PCP Family Medicine; Visit Provider Internal Medicine
PROC: 0DJ08ZZ Inspection of Upper Intestinal Tract, Via Natural or Artificial Opening Endoscopic (ICD-10-PCS; CPT 43235; principal; 2021-02-21 08:25)
PROC: 06L38CZ Occlusion of Esophageal Vein with Extraluminal Device, Via Natural or Artificial Opening Endoscopic (ICD-10-PCS; principal; 2021-02-21 16:05)
PROC: 3E0G8GC Introduction of Other Therapeutic Substance into Upper GI, Via Natural or Artificial Opening Endoscopic (ICD-10-PCS; principal; 2021-02-23 07:40)
DX: I85.11 Secondary esophageal varices with bleeding (principal); K76.6 Portal hypertension; K51.90 Ulcerative colitis, unspecified, without complications; I86.4 Gastric varices; K70.30 Alcoholic cirrhosis of liver without ascites; K44.9 Diaphragmatic hernia without obstruction or gangrene; K31.89 Other diseases of stomach and duodenum; K21.9 Gastro-esophageal reflux disease without esophagitis; Z20.822 Contact with and (suspected) exposure to COVID-19; J45.909 Unspecified asthma, uncomplicated; F17.210 Nicotine dependence, cigarettes, uncomplicated
CPT/HCPCS: 36415; 76705; 80048; 80076; 83690; 85014; 85018; 85025; 85610; 86850; 86900; 86901; 86920; 87426; 94640; 99284; 99406; J7030; J7040; J7050; J7120; P9016; 90686; A4216; J2405; J3490

== ENCOUNTER 2021-04-14 06:41 | Day surgery (SDC) | payer MEDICAID, SELFPAY ==
[2021-04-14] VITALS (7 sets, daily range): BP systolic 118–141; BP diastolic 61–98; PULSE 68–73; RESP 16–18; TEMP 36.4–36.8; O2SAT 100; BMI 27.0
--- NOTE | 2021-04-14 07:21 | HP.PCM_ITS ---
History and Physical Date of Admission: 04/14/21 51 M who presents to the office today for Last seen of [facility] inpatient 02/24/21 for UGIB, thrombocytopenia, portal hypertension. Portal hypertension secondary to alcoholic cirrhosis. Start [id number] BID. US of abdomen found ascites without signs of thrombosis and hepatic or portal veins not necessitating midodrine start. Thrombocytopenia ? secondary to splenic sequestration from cirrhosis. Acute UGIB ? secondary to variceal bleed with banding performed 02/23/21 during repeat EGD. Start protonix 40mg BID and nadolol as directed above. EGD performed 02/23/21 in AM and PM. PM procedure found Bleeding grade III esophageal varices incompletely eradicated, banded. Type 1 gastroesophageal varices spurting blood completely eradicated, banded. Portal hypertensive gastropathy. AM procedure found Bleeding grade III esophageal varices incompletely eradicated, banded. Type 1 gastroesophageal varices previously treated and oozing blood, injected and treated with heater probe. Portal hypertensive gastropathy. EGD performed 02/21/[address] uTrner with findings of clotted blood in the stomach. Discharged 02/27/21. States he is doing very well since discharge. Appetite has improved. Continues to have diarrhea 3-4 episodes a day. Denies blood/mucous. Denies alcohol consumption for almost a month. ROS Const Constitutional: Positive for weight change ENT ENT: Positive for nasal congestion Resp Respiratory: Positive for wheezing Gastro GI: Positive for diarrhea Musc Musculoskeletal: Positive for back pain, muscle cramps, numbness, tingling and Arthritis Neuro Neurology: Positive for numbness and tingling Endo Endocrine: Positive for weight change Aller/Imm Allergy/Immunologic: Positive for wheezing Exam Const General: cooperative and comfortable Nutritional Appearance: average body habitus and well nourished [facility] Head: normal to inspection Ears: hearing grossly normal bilaterally Nose: external nose normal Face and sinus: normal facial exam Mouth: oral mucosae normal Throat: posterior oropharynx normal Eyes General: appearance normal, both eyes and all related structures Neck Neck: normal visual inspection Chest Chest palpation & inspection: normal inspection of the chest and normal palpation of entire chest wall Resp Effort & Inspection: normal respiratory effort Auscultation: Bilateral: Clear to Auscultation Cardio Palpation: normal PMI Rate: regular rate Rhythm: regular rhythm GI Inspection: normal to inspection Auscultation: normal bowel sounds Percussion: normal to percussion Palpation: no hepatosplenomegaly Skin General: no rashes or lesions noted Neuro General: patient alert Extrem General: normal to inspection Psych Affect: normal affect Quality Reporting Tobacco Screening ([facility] 138) Smoking Status: Current every day smoker Assessment and Plan Assessment and Plan (1) Portal hypertension: Status: Acute Plan - Dr. Jet Tenorio, DO: Patient is doing well liver disease at this time. He was diagnosed with alcoholic cirrhosis and complicated GI bleed, ascites and mild encephalopathy while in the hospital. He is on nadolol therapy twice a day without any side effects we will continue that. (2) Thrombocytopenia: Status: Acute Plan - Dr. 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 Seems to be stable we will repeat CBC with differential. (3) Esophageal varices: Status: Acute Jess Tenorio, DO: Status post banding of 2 distal esophageal varices. He may need to undergo surveillance of esophageal varices and gastric varices in the next 4 to 6 weeks. (4) Gastric varices: Status: Acute Plan - Dr. Jet Tenorio, DO: Patient still continues to have gastric varices we will refer him for TIPS procedure. I have re-examined the patient. There are no clinical changes since date of exam.
[2021-04-14] MEDS: Lactated Ringers 1,000 ML 15 ML IV (07:25)
--- NOTE | 2021-04-14 08:27 | OP.CCLET_ITS ---
12/15/2021 Aron Moya [address] [place] [address] Re : Upper GI endoscopy procedure for Kevin Moncada Dear Dr. Moya This procedure was performed on April. My impressions and recommendations are as follows: Impressions : - Non-bleeding grade II esophageal varices. Incompletely eradicated. Banded. - Portal hypertensive gastropathy. - Normal second portion of the duodenum. - Esophageal plaques were found, consistent with candidiasis. - No specimens collected. Recommendations : - Discharge patient to home. - Full liquid diet today. - Diflucan (fluconazole) 100 mg PO daily for 10 weeks. - Continue present medications. My findings are described in the full procedure note, which is enclosed. If I can be of further assistance, please feel free to contact me at . Sincerely, Jet Tenorio, 04/14/2021 8:26:45 AM This report has been signed electronically.
--- NOTE | 2021-04-14 08:27 | OP.EGD_ITS ---
Patient Name: Kevin Moncada Procedure Date: 04/14/2021 7:59 AM Date of : 1970 Age: 51 Procedure: Upper GI endoscopy Indications: 1st degree variceal eradication (no prior bleeding), Acute variceal bleeding Providers: Jet Tenorio DO Medicines: See the Anesthesia note for documentation of the administered medications Patient Profile: This is a 51 year old male. Refer to note in patient chart for documentation of history and physical. Patient has symptoms of chronic vomiting. He is status post EGD for treatment of bleeding within the past three months. Complications: No immediate complications. Procedure: Pre-Anesthesia Assessment: - Prior to the procedure, a History and Physical was performed, and patient medications and allergies were reviewed. The patient is competent. The risks and benefits of the procedure and the sedation options and risks were discussed with the patient. All questions were answered and informed consent was obtained. Patient identification and proposed procedure were verified by the physician in the pre-procedure area. Mental Status Examination: alert and oriented. Airway Examination: normal oropharyngeal airway and neck mobility. Respiratory Examination: clear to auscultation. CV Examination: normal. Prophylactic Antibiotics: The patient does not require prophylactic antibiotics. Prior Anticoagulants: The patient has taken no previous anticoagulant or antiplatelet agents. ASA Grade Assessment: II - A patient with mild systemic disease. After reviewing the risks and benefits, the patient was deemed in satisfactory condition to undergo the procedure. The anesthesia plan was to use moderate sedation / analgesia (conscious sedation). Immediately prior to administration of medications, the patient was re-assessed for adequacy to receive sedatives. The heart rate, respiratory rate, oxygen saturations, blood pressure, adequacy of pulmonary ventilation, and response to care were monitored throughout the procedure. The physical status of the patient was re-assessed after the procedure. After obtaining informed consent, the endoscope was passed under direct vision. Throughout the procedure, the patient's blood pressure, pulse, and oxygen saturations were monitored continuously. The Endoscope was introduced through the mouth, and advanced to the second part of duodenum. The upper GI endoscopy was accomplished without difficulty. The patient tolerated the procedure well. Moderate Sedation: Moderate (conscious) sedation was administered by the endoscopy nurse and supervised by the endoscopist. The patient's oxygen saturation, heart rate, blood pressure and response to care were monitored. Total physician intraservice time was 15 minutes. Scope In: 8:11:15 AM Scope Out: 8:20:30 AM Total Procedure Duration Time 0 hours 9 minutes 15 seconds Findings: Two columns of non-bleeding grade II varices were found in the middle third of the esophagus and in the lower third of the esophagus, 35 cm from the incisors. They were 5 mm in largest diameter. No stigmata of recent bleeding were evident and no red betty signs were present. Stigmata of prior treatment were evident. Scarring from prior treatment was visible. Evidence of partial eradication was visible. Two bands were successfully placed with incomplete eradication of varices. There was no bleeding during the procedure. Moderate portal hypertensive gastropathy was found in the stomach. The second portion of the duodenum was normal. Estimated blood loss: none. Diffuse, white plaques were found in the entire esophagus. Impression: - Non-bleeding grade II esophageal varices. Incompletely eradicated. Banded. - Portal hypertensive gastropathy. - Normal second portion of the duodenum. - Esophageal plaques were found, consistent with candidiasis. - No specimens collected. Recommendation: - Discharge patient to home. - Full liquid diet today. - Diflucan (fluconazole) 100 mg PO daily for 10 weeks. - Continue present medications. Procedure Code(s): --- Professional --- 73772, Esophagogastroduodenoscopy, flexible, transoral; with band ligation of esophageal/gastric varices 52919, 59, Moderate sedation services provided by the same physician or other qualified health home care assistant performing the diagnostic or therapeutic service that the sedation supports, requiring the presence of an independent trained observer to assist in the monitoring of the patient's level of consciousness and physiological status; initial 15 minutes of intraservice time, patient age 5 years or older CPT copyright 2017 [employer]. All rights reserved. The codes documented in this report are preliminary and upon pattern filer review may be revised to meet current compliance requirements. Jet Tenorio DO 04/14/2021 8:26:45 AM This report has been signed electronically. Number of Addenda: 1 Note Initiated On: 04/14/2021 7:59 AM Addendum Number: 1 Addendum Date: 12/15/2021 6:08:20 AM MAC was used instead of moderate sedation for the patient. Jet Tenorio DO 12/15/2021 6:08:25 AM This report has been signed electronically.
== END 2021-04-14 23:59 | disposition home or self-care (01) ==
LOC: EN 06:43 → AC 06:44
PROVIDERS: PCP Family Medicine; Referring Provider Family Medicine; Visit Provider Internal Medicine Gastroenterology
PROC: 0DJ08ZZ Inspection of Upper Intestinal Tract, Via Natural or Artificial Opening Endoscopic (ICD-10-PCS; CPT 43235; principal; 2021-04-14 07:55)
DX: I85.00 Esophageal varices without bleeding (principal); K76.6 Portal hypertension; F17.200 Nicotine dependence, unspecified, uncomplicated; D69.59 Other secondary thrombocytopenia; I86.4 Gastric varices; J45.909 Unspecified asthma, uncomplicated; Z87.19 Personal history of other diseases of the digestive system; K58.9 Irritable bowel syndrome, unspecified; G25.81 Restless legs syndrome; M19.90 Unspecified osteoarthritis, unspecified site; K21.9 Gastro-esophageal reflux disease without esophagitis; Z79.899 Other long term (current) drug therapy
CPT/HCPCS: 43244; 87426; J7120; J2405

== ENCOUNTER 2021-04-18 09:25 | Day surgery (SDC) | payer MEDICAID, SELFPAY ==
[2021-04-18] VITALS (8 sets, daily range): BP systolic 115–148; BP diastolic 61–70; PULSE 61–69; RESP 16–18; TEMP 35.8–37.7; O2SAT 100; BMI 25.1
[2021-04-18] MEDS: Lactated Ringers 1,000 ML 15 ML IV (09:54)
--- NOTE | 2021-04-18 12:35 | HP.PCM_ITS ---
History and Physical Date of Admission: 04/18/21 51 M who presents to the office today for Last seen of [facility] inpatient 02/24/21 for UGIB, thrombocytopenia, portal hypertension. Portal hypertension secondary to alcoholic cirrhosis. Start [id number] BID. US of abdomen found ascites without signs of thrombosis and hepatic or portal veins not necessitating midodrine start. Thrombocytopenia ? secondary to splenic sequestration from cirrhosis. Acute UGIB ? secondary to variceal bleed with banding performed 02/23/21 during repeat EGD. Start protonix 40mg BID and nadolol as directed above. EGD performed 02/23/21 in AM and PM. PM procedure found Bleeding grade III esophageal varices incompletely eradicated, banded. Type 1 gastroesophageal varices spurting blood completely eradicated, banded. Portal hypertensive gastropathy. AM procedure found Bleeding grade III esophageal varices incompletely eradicated, banded. Type 1 gastroesophageal varices previously treated and oozing blood, injected and treated with heater probe. Portal hypertensive gastropathy. EGD performed 02/21/[address] Turner with findings of clotted blood in the stomach. Discharged 02/27/21. States he is doing very well since discharge. Appetite has improved. Continues to have diarrhea 3-4 episodes a day. Denies blood/mucous. Denies alcohol consumption for almost a month. ROS Const Constitutional: Positive for weight change ENT ENT: Positive for nasal congestion Resp Respiratory: Positive for wheezing Gastro GI: Positive for diarrhea Musc Musculoskeletal: Positive for back pain, muscle cramps, numbness, tingling and Arthritis Neuro Neurology: Positive for numbness and tingling Endo Endocrine: Positive for weight change Aller/Imm Allergy/Immunologic: Positive for wheezing Exam Const General: cooperative and comfortable Nutritional Appearance: average body habitus and well nourished [facility] Head: normal to inspection Ears: hearing grossly normal bilaterally Nose: external nose normal Face and sinus: normal facial exam Mouth: oral mucosae normal Throat: posterior oropharynx normal Eyes General: appearance normal, both eyes and all related structures Neck Neck: normal visual inspection Chest Chest palpation & inspection: normal inspection of the chest and normal palpation of entire chest wall Resp Effort & Inspection: normal respiratory effort Auscultation: Bilateral: Clear to Auscultation Cardio Palpation: normal PMI Rate: regular rate Rhythm: regular rhythm GI Inspection: normal to inspection Auscultation: normal bowel sounds Percussion: normal to percussion Palpation: no hepatosplenomegaly Skin General: no rashes or lesions noted Neuro General: patient alert Extrem General: normal to inspection Psych Affect: normal affect Quality Reporting Tobacco Screening ([facility] 138) Smoking Status: Current every day smoker Assessment and Plan Assessment and Plan (1) Portal hypertension: Status: Acute Plan - Dr. Jet Tenorio, DO: Patient is doing well liver disease at this time. He was diagnosed with alcoholic cirrhosis and complicated GI bleed, ascites and mild encephalopathy while in the hospital. He is on nadolol therapy twice a day without any side effects we will continue that. (2) Thrombocytopenia: Status: Acute Plan - Dr. 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 Seems to be stable we will repeat CBC with differential. (3) Esophageal varices: Status: Acute Jess Tenorio, DO: Status post banding of 2 distal esophageal varices. He may need to undergo surveillance of esophageal varices and gastric varices in the next 4 to 6 weeks. (4) Gastric varices: Status: Acute Plan - Dr. Jet Tenorio, DO: Patient still continues to have gastric varices we will refer him for TIPS procedure. I have re-examined the patient. There are no clinical changes since date of exam.
--- NOTE | 2021-04-18 13:31 | OP.EGD_ITS ---
Patient Name: Kevin Moncada Procedure Date: 04/18/2021 12:24 PM Date of : 1970 Age: 51 Procedure: Upper GI endoscopy Indications: Dysphagia Providers: Jet Tenorio DO Medicines: See the Anesthesia note for documentation of the administered medications Patient Profile: This is a 51 year old male. Refer to note in patient chart for documentation of history and physical. Patient has symptoms of acute dysphagia. Complications: No immediate complications. Procedure: Pre-Anesthesia Assessment: - Prior to the procedure, a History and Physical was performed, and patient medications and allergies were reviewed. The patient is competent. The risks and benefits of the procedure and the sedation options and risks were discussed with the patient. All questions were answered and informed consent was obtained. Patient identification and proposed procedure were verified by the physician in the pre-procedure area. Mental Status Examination: alert and oriented. Airway Examination: normal oropharyngeal airway and neck mobility. Respiratory Examination: clear to auscultation. CV Examination: normal. Prophylactic Antibiotics: The patient does not require prophylactic antibiotics. Prior Anticoagulants: The patient has taken no previous anticoagulant or antiplatelet agents. ASA Grade Assessment: II - A patient with mild systemic disease. After reviewing the risks and benefits, the patient was deemed in satisfactory condition to undergo the procedure. The anesthesia plan was to use moderate sedation / analgesia (conscious sedation). Immediately prior to administration of medications, the patient was re-assessed for adequacy to receive sedatives. The heart rate, respiratory rate, oxygen saturations, blood pressure, adequacy of pulmonary ventilation, and response to care were monitored throughout the procedure. The physical status of the patient was re-assessed after the procedure. After obtaining informed consent, the endoscope was passed under direct vision. Throughout the procedure, the patient's blood pressure, pulse, and oxygen saturations were monitored continuously. The Endoscope was introduced through the mouth, and advanced to the second part of duodenum. The upper GI endoscopy was accomplished without difficulty. The patient tolerated the procedure well. Moderate Sedation: Moderate (conscious) sedation was administered by the endoscopy nurse and supervised by the endoscopist. The following parameters were monitored: oxygen saturation, heart rate, blood pressure, and response to care. Total physician intraservice time was 15 minutes. Scope In: 12:43:36 PM Scope Out: 12:55:26 PM Total Procedure Duration Time 0 hours 11 minutes 50 seconds Findings: Food was found in the entire esophagus. Removal of food was accomplished. A moderate Schatzki ring was found in the middle third of the esophagus. A guidewire was placed and the scope was withdrawn. Dilation was performed with a Savary dilator with no resistance at 54 Fr. The dilation site was examined following endoscope reinsertion and showed moderate improvement in luminal narrowing. Multiple localized, 4 mm non-bleeding erosions were found in the stomach. There were no stigmata of recent bleeding. The second portion of the duodenum was normal. Impression: - Food in the esophagus. Removal was successful. - Moderate Schatzki ring. Dilated. - Non-bleeding erosive gastropathy. - Normal second portion of the duodenum. Recommendation: - Discharge patient to home. - Clear liquid diet. - Continue present medications. - Await pathology results. - Repeat upper endoscopy in 2 months for endoscopic band ligation. - Return to GI office in 2 weeks. Procedure Code(s): --- Professional --- 08272, Esophagogastroduodenoscopy, flexible, transoral; with removal of foreign body(s) 92311, Esophagogastroduodenoscopy, flexible, transoral; with insertion of guide wire followed by passage of dilator(s) through esophagus over guide wire 60441, 59, Moderate sedation services provided by the same physician or other qualified health child caregiver performing the diagnostic or therapeutic service that the sedation supports, requiring the presence of an independent trained observer to assist in the monitoring of the patient's level of consciousness and physiological status; initial 15 minutes of intraservice time, patient age 5 years or older CPT copyright 2017 [employer]. All rights reserved. The codes documented in this report are preliminary and upon residential door installer review may be revised to meet current compliance requirements. Jet Tenorio DO 04/18/2021 1:31:07 PM This report has been signed electronically. Number of Addenda: 1 Note Initiated On: 04/18/2021 12:24 PM Addendum Number: 1 Addendum Date: 12/15/2021 6:12:23 AM MAC was used instead of moderate sedation for the patient. Jet Tenorio DO 12/15/2021 6:12:28 AM This report has been signed electronically.
--- NOTE | 2021-04-18 13:32 | OP.CCLET_ITS ---
12/15/2021 Aron Moya [address] [place] [address] Re : Upper GI endoscopy procedure for Kevin Moncada Dear Dr. Moya This procedure was performed on Sunday, April 18, 2021. My impressions and recommendations are as follows: Impressions : - Food in the esophagus. Removal was successful. - Moderate Schatzki ring. Dilated. - Non-bleeding erosive gastropathy. - Normal second portion of the duodenum. Recommendations : - Discharge patient to home. - Clear liquid diet. - Continue present medications. - Await pathology results. - Repeat upper endoscopy in 2 months for endoscopic band ligation. - Return to GI office in 2 weeks. My findings are described in the full procedure note, which is enclosed. If I can be of further assistance, please feel free to contact me at . Sincerely, Jet Tenorio, 04/18/2021 1:31:07 PM This report has been signed electronically.
== END 2021-04-18 23:59 | disposition home or self-care (01) ==
LOC: EN 09:26 → AC 09:28
PROVIDERS: PCP Family Medicine; Referring Provider Family Medicine; Visit Provider Internal Medicine Gastroenterology
PROC: 0DJ08ZZ Inspection of Upper Intestinal Tract, Via Natural or Artificial Opening Endoscopic (ICD-10-PCS; CPT 43235; principal; 2021-04-18 11:25)
DX: K22.2 Esophageal obstruction (principal); K76.6 Portal hypertension; I85.10 Secondary esophageal varices without bleeding; T18.128A Food in esophagus causing other injury, initial encounter; F17.200 Nicotine dependence, unspecified, uncomplicated; I86.4 Gastric varices; D69.59 Other secondary thrombocytopenia; J45.909 Unspecified asthma, uncomplicated; M19.90 Unspecified osteoarthritis, unspecified site; Z87.19 Personal history of other diseases of the digestive system; K21.9 Gastro-esophageal reflux disease without esophagitis; G25.81 Restless legs syndrome; K58.9 Irritable bowel syndrome, unspecified; Y93.9 Activity, unspecified; Y92.9 Unspecified place or not applicable
CPT/HCPCS: 43248; 43247; J7120; C1769

== ENCOUNTER 2021-04-28 15:35 | Outpatient (CLI) | payer MEDICAID, SELFPAY ==
[2021-04-28 15:38] LABS: Bacteria 0 SEEN /hpf (None Seen); Mucous, Urine 0 SEEN /hpf (<or=2+); Red Blood Cells-Urine 0 SEEN /hpf (0-5); White Blood Cells 0 SEEN /hpf (0-5)
[2021-04-28 17:52] LABS: Absolute Lymphocyte Count 1.36 X10^3/uL (0.83-4.51); Absolute Neutrophil Count 2.9 X10^3/uL (2.0-7.7); Basophil# 0.04 X10^3/uL; Basophil% 0.8 % (0-1); Eosinophil# 0.16 X10^3/uL; Eosinophils% 3.1 % (0-5); Hematocrit 31.9 % (40-54); Lymphocyte # 1.36 X10^3/ul (0.83-4.51); Lymphocyte % 26.4 % (19-41); Mean Corp Hgb Conc 28.2 g/dL (32-36); Mean Corpuscular Volume 81.4 fL (80-94); Mean Platelet Vol. 12.2 fl (6.2-12.0); Monocyte# 0.72 X10^3/uL; NRBC Flagged by Analyzer 0 % (0-5); Neutrophil # 2.87 X10^3/uL (2.7-7.7); Neutrophil % 55.5 % (47-70); Platelet Count 148 K/mm3 (150-450); RBC Distribution Width CV 16.8 % (11.6-14.6); RBC Distribution Width SD 49.2 fl (35.1-43.9); Red Blood Count 3.92 M/mm3 (4.6-6.2); White Blood Count 5.2 K/mm3 (4.4-11.0)
[2021-04-28 17:58] LABS: Color, Urine Yellow (Yellow); Glucose, Dipstick Normal (Normal); Ketone-Dipstick Negative (Negative); Leukocyte Esterase-Dipstick Negative /ul (Negative); Nitrite-Dipstick Negative (Negative); Occult Blood-Urine Negative /ul (Negative); Protein-Dipstick Negative (Negative); Specific Gravity, Urine 1.015 (1.002-1.030); Urine Bilirubin Dipstick Negative (Negative); Urine Clarity Sl. Cloudy (Clear); Urine Urobilinogen Normal (Normal)
[2021-04-28 18:05] LABS: Squamous Epithelial Cells - UA 0-5 SEEN /hpf (0-5)
[2021-04-28 18:14] LABS: ALB/GLOB Ratio 0.8 RATIO (0.9-2.4); AST(SGOT) 33 U/L (15-37); Alanine Aminotransfer ALT/SGPT 28 U/L (16-61); Albumin, Serum 3.6 g/dL (3.2-5.0); Alkaline Phosphatase 113 U/L (45-117); Anion Gap 4 (5-15); BUN 12 mg/dL (7-18); BUN/Creat Ratio 14.6 RATIO (10-20); Calcium,Total 9.1 mg/dL (8.5-10.1); Chloride 109 mmol/L (98-107); Creatinine, Serum 0.82 mg/dL (0.70-1.30); EST Glomerular Filtration Rate 105 mL/min (>60); Est Glom Filt Rate - Afr Amer 127 mL/min (>60); Globulin 4.8 g/dL (2.2-4.2); Glucose 110 mg/dL (74-106); Potassium 4.1 mmol/L (3.5-5.1); Protein, Total 8.4 g/dL (6.4-8.2); Sodium Level 139 mmol/L (136-145)
== END 2021-04-28 23:59 | disposition short-term general hospital (02) ==
LOC: MFPLAB 15:36
PROVIDERS: PCP Family Medicine; Referring Provider Family Medicine; Visit Provider Family Medicine
DX: K21.9 Gastro-esophageal reflux disease without esophagitis (principal); F17.200 Nicotine dependence, unspecified, uncomplicated
CPT/HCPCS: 36415; 80053; 81001; 85025

== ENCOUNTER 2021-05-09 14:55 | Outpatient (CLI) | payer MEDICAID, SELFPAY ==
[2021-05-09 18:02] LABS: International Normalized Ratio 1.1
[2021-05-09 18:17] LABS: Absolute Lymphocyte Count 1.12 X10^3/uL (0.83-4.51); Absolute Neutrophil Count 2.5 X10^3/uL (2.0-7.7); Basophil# 0.02 X10^3/uL; Basophil% 0.5 % (0-1); Eosinophil# 0.11 X10^3/uL; Eosinophils% 2.5 % (0-5); Hematocrit 31.9 % (40-54); Hemoglobin 9.2 g/dL (13.0-16.5); Lymphocyte # 1.12 X10^3/ul (0.83-4.51); Lymphocyte % 25.9 % (19-41); Mean Corp Hgb Conc 28.8 g/dL (32-36); Mean Corpuscular Hgb 22.9 pg (27.0-32.0); Mean Corpuscular Volume 79.6 fL (80-94); Mean Platelet Vol. 11.6 fl (6.2-12.0); Monocyte# 0.53 X10^3/uL; Monocyte% 12.2 % (0-10); NRBC Flagged by Analyzer 0 % (0-5); Neutrophil # 2.54 X10^3/uL (2.7-7.7); Neutrophil % 58.7 % (47-70); Platelet Count 106 K/mm3 (150-450); RBC Distribution Width CV 16.8 % (11.6-14.6); RBC Distribution Width SD 48.3 fl (35.1-43.9); RET-HE 23.9 pg (30-35); Red Blood Count 4.01 M/mm3 (4.6-6.2); Reticulocyte Count 1.04 % (0.5-1.5); White Blood Count 4.3 K/mm3 (4.4-11.0)
[2021-05-09 18:22] LABS: Erythrocyte Sedimentation Rate 77 mm/hr (0-20)
[2021-05-09 18:38] LABS: Hemoglobin A1c 5.8 % (3.8-5.6)
[2021-05-09 18:48] LABS: CRP < 2.90 mg/L (0.0-3.0); Ferritin 6 ng/mL (26-388); Iron 24 ug/dL (65-175); Iron Binding Capacity,Total 495 ug/dL (250-450); LDH 164 U/L (87-241); PERCENT IRON SATURATION 4.8 % (15.0-55.0)
[2021-05-09 18:50] LABS: Vitamin B12 436 pg/mL (211-911)
[2021-05-09 18:53] LABS: Ferritin 6 ng/mL (26-388); Iron Binding Capacity,Total 494 ug/dL (250-450)
[2021-05-09 19:16] LABS: HIV - WCH Non-Reactive (Nonreactive)
[2021-05-11 15:08] LABS: Anti-Centromere B Ab <0.2 AI (0.0-0.9); Anti-Chromatin <0.2 AI (0.0-0.9); Anti-Jo <0.2 AI (0.0-0.9); Anti-Scleroderma-70 AB <0.2 AI (0.0-0.9); RNP Ab 0.4 AI (0.0-0.9); SJOGREN'S Anti-SS-A test < 0.2 AI (0.0-0.9); SJOGREN'S Anti-SS-B test < 0.2 AI (0.0-0.9); Smith Ab <0.2 AI (0.0-0.9)
[2021-05-11 17:24] LABS: Anti-Mitochondrial AB <20.0 Units (0.0-20.0); Anti-dsDNA Ab <1 IU/mL (0-9)
[2021-05-12 03:07] LABS: Angiotensin Convert Enzyme 26 U/L (14-82); Ceruloplasmin 29.4 mg/dL (16.0-31.0); Cytoplasmic Ab (C-ANCA) <1:20 titer (Neg:<1:20); HEPATITIS B SURFACE AG Negative (Negative); Hepatitis A IgM Antibody Negative (Negative); Hepatitis B Core AB IgM Negative (Negative)
[2021-05-12 12:29] LABS: AFP, Tumor Marker 3.6 ng/mL (0.0-8.3); Anti-Smooth Muscle ABS 21 Units (0-19); Copper, Serum or Plasma 119 ug/dL (69-132); Haptoglobin 123 mg/dL (29-370); Hep C Antibodies <0.1 s/co ratio (0.0-0.9); Perinuclear Ab (P-ANCA) <1:20 titer (Neg:<1:20)
== END 2021-05-09 23:59 | disposition short-term general hospital (02) ==
LOC: MFPLAB 14:55
PROVIDERS: Nurse Practitioner Adult Health; PCP Family Medicine; Visit Provider Family Medicine
DX: I85.00 Esophageal varices without bleeding (principal); K76.6 Portal hypertension; D69.6 Thrombocytopenia, unspecified; I86.4 Gastric varices; D50.9 Iron deficiency anemia, unspecified
CPT/HCPCS: 80074; 82105; 82140; 82164; 82390; 82525; 82607; 82728; 82746; 83010; 83036; 83516; 83540; 83550; 83615; 85025; 85045; 85610; 85652; 86140; 86225; 86235; 86256; 86703

== ENCOUNTER 2021-05-18 13:55 | Outpatient (CLI) | payer MEDICAID, SELFPAY ==
--- NOTE | 2021-05-18 13:59 | ECHOD_ITS ---
Reason For Study: MURMUR Procedure This was a 2D Doppler, Color Flow transthoracic echocardiogram. The study was technically difficult. Exam performed in department. Left Ventricle Based upon the 2D echocardiographic images obtained there appears to be grossly normal left ventricular size, wall motion, and systolic function. The estimated ejection fraction is 55 %. Diastolic function is indeterminate. Right Ventricle Normal RV size. Normal systolic function. Atria Normal left atrium. Normal right atrium. No doppler evidence for ASD. Mitral Valve There is no mitral annular calcification. Normal mitral valve. Trivial mitral valve insufficiency. Tricuspid Valve Normal tricuspid valve. Trivial tricuspid valve insufficiency. Unable to estimate RV systolic pressure/pulmonary artery pressure due to technically difficult study. Aortic Valve Trisinus/trileaflet aortic valve. Normal aortic valve. Trivial aortic valve insufficiency. Pulmonic Valve The pulmonic valve is not well visualized. Trivial pulmonic valve insufficiency. Great Vessels Normal sized aortic root. Pericardium/Pleural No pericardial effusion. MMode/2D Measurements & Calculations LVIDd: 4.7 cm IVSd: 1.1 cm LVOT diam: 2.0 cm LVIDs: 3.0 cm LVPWd: 1.1 cm LVOT area: 3.3 cm2 RVDd: 3.7 cm FS: 35.5 % Ao root diam: 3.5 cm LAV(MOD-bp): 81.4 ml LA A4 area: 23.0 cm2 LAV(MOD-bp) Indexed: 41.4 ml/m2 LAV(MOD-sp2): 78.2 ml LAV(MOD-sp4): 74.2 ml LA dimension(2D): 4.7 cm RA A4 area: 22.0 cm2 Time Measurements MV dec time: 0.29 sec Doppler Measurements & Calculations MV E max isaias: 119.6 cm/sec Lat Peak E' Isaias: 11.6 cm/sec Med Peak E' Isaias: 11.2 cm/sec MV A max isaias: 98.0 cm/sec E/E' lat: 10.3 E/E' med: 10.7 MV E/A: 1.2 Ao V2 max: 188.4 cm/sec AI max isaias: 415.4 cm/sec LV V1 max: 155.9 cm/sec Ao max P.2 mmHg AI max P.1 mmHg LV V1 max P.7 mmHg Ao V2 mean: 137.6 cm/sec AI dec slope: 300.0 cm/sec2 LV V1 mean P.2 mmHg Ao mean P.3 mmHg AI P1/2t: 405.5 msec LV V1 mean: 109.3 cm/sec Ao V2 VTI: 43.3 cm LV V1 VTI: 36.1 cm COLIN(I,D): 2.7 cm2 COLIN(V,D): 2.7 cm2 SV(LVOT): 119.1 ml PA V2 max: 115.5 cm/sec ECHO/Echo Complete Interpretation Summary The study was technically difficult. Based upon the 2D echocardiographic images obtained there appears to be grossly normal left ventricular size, wall motion, and systolic function. The estimated ejection fraction is 55 %. Trivial mitral valve insufficiency. Trivial tricuspid valve insufficiency. Trivial aortic valve insufficiency. Trivial pulmonic valve insufficiency. Unable to estimate RV systolic pressure/pulmonary artery pressure due to techni giancarlo difficult study. Diastolic function is indeterminate. Ordering Physician: Griffin^Aron^Sai^^ Referring Physician: Aron Moya Performed By: Aura Stephens, CARROL, RVT
== END 2021-05-18 23:59 | disposition home or self-care (01) ==
LOC: CVS 13:58
PROVIDERS: PCP Family Medicine; Referring Provider Family Medicine; Visit Provider Family Medicine
DX: R01.1 Cardiac murmur, unspecified (principal)
CPT/HCPCS: 93306

== ENCOUNTER 2021-05-19 08:33 | Outpatient (CLI) | payer MEDICAID, SELFPAY ==
[2021-05-19] VITALS (11 sets, daily range): BP systolic 94–134; BP diastolic 43–81; PULSE 59–69; RESP 12–17; TEMP 36.6; O2SAT 96–100; BMI 26.2
--- NOTE | 2021-05-19 | LIV_PTH ---
PATIENT: LUH RAMOS LOC: CT U#:[id number] AGE/SX: 51/M ROOM: RE05/19/[address]: CHASE Shields : 1970 BED: DIS: 05/19/2021 SPEC #: [id number] RECD: 05/19/21 11:27 STATUS: ELLE RENETTA #: [id number] SOPHIE: 05/19/21 00:[address]: Chrystal Durbin NP DEPT: SURGICAL PATHOLOGY RECD BY: Tyrese Montgomery ENTERED: 05/19/21 11:28 SP TYPE: LIVER RES OTHR DR: Dr. Aron Moya MD Tissues: Liver, NOS Procedures: PAS with Diastase (control) Trichrome (control) Special Stain Group II PAS Stain (control) Surgery Specimen Level V Retic (control) Iron Stain (control) HEADER OPERATION: CT-guided liver biopsy PRE-OP DIAGNOSIS: Cirrhosis TISSUE SUBMITTED: Liver, 3 cores MICROSCOPIC DIAGNOSIS Liver, CT-guided core biopsy: Consistent with cirrhosis. See microscopic description and comment. Trudi 05/20/2021 COMMENT Clinical correlation and appropriate follow up are necessary. MICROSCOPIC DESCRIPTION Slides are reviewed. The specimen shows liver parenchymal tissue with distortion of normal lobular architecture into multiple nodules divided by fibrous septae. Hepatocytes do not show any significant atypia. Fibrous septae in between nodules shows mild chronic inflammation and ductular proliferation. Iron stains do not show any increased iron deposition. Trichrome and reticulin stains supports the distortion of normal lobular architecture into multiple nodules divided by fibrous septae. PAS stain with and without diastase do not show any abnormal accumulation of protein. All stains are performed with appropriate matched control. GROSS DESCRIPTION Received in fixative is one container labeled with the patient's name and designated liver. The specimen consists of three elongated fragments of cobos soft tissue measuring 1 to 2 cm in length and 0.1 cm in diameter. The specimen is totally submitted in one cassette. / TITA:mirza 05/19/2021 TC:5 CPT: 17161, 54973 x5
--- NOTE | 2021-05-19 08:45 | CT_ITS ---
PROCEDURE: CT DIRECTED CORE LIVER BIOPSY INDICATION: Male, 51 years old. Gastric and esophageal varices, portal hypertension PHYSICIAN: Dr. ALBERT Lora CONSENT: Written informed consent was obtained having explained the risks, benefits and alternatives in detail with the patient who accepted the risks and agreed to proceed. Laboratory review and clinical assessment was performed. CONSCIOUS SEDATION PROTOCOL: The Drugs used were: 2 mg Versed, IV., and 50 mcg Fentanyl, IV. The sedation time was: 14 minutes. Conscious sedation was started at 9:56 AM and terminated at 10:10 AM. The conscious sedation protocol was independently monitored. RADIATION DOSAGE (If Supplied By Facility): CTDIvol = ( 23.2 ) mGy, DLP = ( 650.72 ) mGycm Individualized dose optimization techniques were used for this CT. TECHNIQUE: Using CT image guidance with image documentation, a suitable location in the right lobe of the liver was identified. Using an anterior approach, puncture of the liver was uneventful with an 18-gauge core needle system. Three ,18-gauge core samples were obtained, and submitted in formalin to the pathologist for further assessment. Followup CT scan revealed no distinct sequelae. CT/Biopsy/Inj or Needle Placement IMPRESSION: 1. CT directed core needle biopsy of the liver, using CT image guidance with image documentation as described. 2. Conscious Sedation protocol utilized with independent monitoring. Electronically Signed: Donato Akhtar MD at 10:52 EST ,
[2021-05-19 08:48] LABS: Platelet Count 124 K/mm3 (150-450)
[2021-05-19 08:54] LABS: International Normalized Ratio 1.2; Prothrombin Time (Protime)PT. 14.3 SECONDS (11.7-14.9)
[2021-05-19 08:55] LABS: Partial Thromboplast Time 36.3 Seconds (24.1-36.2)
[2021-05-19] MEDS: Midazolam 2 MG/2 ML Syringe IV (09:56)
[2021-05-19] MEDS: fentaNYL 100 MCG/2 ML Ampul IV (09:58)
[2021-05-19] MEDS: Lidocaine 2% (20 ml mdv) 20 ML Vial INFILT (10:05)
== END 2021-05-19 23:59 | disposition home or self-care (01) ==
LOC: CT 08:34
PROVIDERS: PCP Family Medicine; Referring Provider Nurse Practitioner Adult Health; Visit Provider Nurse Practitioner Adult Health
DX: I86.4 Gastric varices (principal); I85.00 Esophageal varices without bleeding; K76.6 Portal hypertension
CPT/HCPCS: 47000; 36415; 77012; 85049; 85610; 85730; 88307; 88313; J7040; A4216

== ENCOUNTER 2021-06-08 14:39 | Outpatient (CLI) | payer MEDICAID, SELFPAY ==
[2021-06-08 17:48] LABS: Absolute Lymphocyte Count 1.31 X10^3/uL (0.83-4.51); Absolute Neutrophil Count 3.1 X10^3/uL (2.0-7.7); Basophil# 0.04 X10^3/uL; Basophil% 0.8 % (0-1); Eosinophil# 0.14 X10^3/uL; Eosinophils% 2.6 % (0-5); Hematocrit 30.6 % (40-54); Hemoglobin 8.8 g/dL (13.0-16.5); Lymphocyte # 1.31 X10^3/ul (0.83-4.51); Lymphocyte % 24.6 % (19-41); Mean Corp Hgb Conc 28.8 g/dL (32-36); Mean Corpuscular Hgb 21.8 pg (27.0-32.0); Mean Corpuscular Volume 75.9 fL (80-94); Monocyte# 0.74 X10^3/uL; Monocyte% 13.9 % (0-10); NRBC Flagged by Analyzer 0 % (0-5); Neutrophil # 3.07 X10^3/uL (2.7-7.7); Neutrophil % 57.7 % (47-70); POSITIVE COUNT YES; Platelet Count 85 K/mm3 (150-450); RBC Distribution Width CV 17.2 % (11.6-14.6); RBC Distribution Width SD 47.5 fl (35.1-43.9); Red Blood Count 4.03 M/mm3 (4.6-6.2); White Blood Count 5.3 K/mm3 (4.4-11.0)
[2021-06-08 17:50] LABS: Differential Indicated SCAN CRITERIA MET
[2021-06-08 18:16] LABS: Ferritin 5 ng/mL (26-388); Iron 18 ug/dL (65-175); Iron Binding Capacity,Total 483 ug/dL (250-450); PERCENT IRON SATURATION 3.7 % (15.0-55.0)
[2021-06-08 18:18] LABS: Differential Comment SCANNED
[2021-06-08 18:19] LABS: Hypochromasia 2+; Platelet Estimate MOD DEC (ADEQ)
== END 2021-06-08 23:59 | disposition home or self-care (01) ==
LOC: MFPLAB 14:40
PROVIDERS: PCP Family Medicine; Referring Provider Family Medicine; Visit Provider Family Medicine
DX: D50.9 Iron deficiency anemia, unspecified (principal)
CPT/HCPCS: 36415; 82728; 83540; 83550; 85025

== ENCOUNTER 2021-06-23 10:41 | Outpatient (CLI) | payer MEDICAID, SELFPAY ==
--- NOTE | 2021-06-23 13:23 | PFTCOMP_ITS ---
COMPLETE PULMONARY FUNCTION TEST INTERPRETATION Brief HPI: Patient is a 51 year old male, currently under the care of Dr. Moya, who presents to [facility] for complete pulmonary function tests secondary to diagnosis of COPD. Respiratory therapist reports good effort and reproducible results. Interpretation: Forced expiration spirometry shows no large airways obstructive ventilatory defect with an FEV1 of 76% predicted. There is no significant bronchodilator response in FVC or FEV1 by strict ATS criteria. Spirograms are of good quality and plateau slowly, indicating slowly emptying areas of the lungs. The respiratory flow volume loop shows decreased expiratory flow rates at high lung volumes consistent with small airways obstruction. Lung volumes by body plethysmography show a normal total lung capacity at 7.25 L, 111% predicted. FRC and RV are elevated out of proportion. Lung volume measurements are consistent with hyperinflation and air-trapping. Diffusion capacity by carbon monoxide is normal at 91% predicted. The airway resistance is elevated. No previous pulmonary function tests were available for review. Impression: Grossly normal pulmonary function test with some stigmata of small airways disease suggesting possible early COPD
== END 2021-06-23 23:59 | disposition home or self-care (01) ==
LOC: PSN 10:44
PROVIDERS: PCP Family Medicine; Referring Provider Family Medicine; Visit Provider Family Medicine
DX: J44.9 Chronic obstructive pulmonary disease, unspecified (principal)
CPT/HCPCS: 94060; 94726; 94729

== ENCOUNTER → 2021-08-11 | Outpatient (CLI) | payer MEDICAID, SELFPAY | END | disposition home or self-care (01) | LOC: MFPLAB 14:15 | PROVIDERS: PCP Family Medicine; Referring Provider Family Medicine; Visit Provider Family Medicine | DX: Z00.00 Encounter for general adult medical examination without abnormal findings (principal) ==

== ENCOUNTER → 2021-09-14 | Outpatient (CLI) | payer MEDICAID, SELFPAY | END | disposition home or self-care (01) | LOC: MFPLAB 11:47 | PROVIDERS: PCP Family Medicine; Referring Provider Family Medicine; Visit Provider Internal Medicine Gastroenterology | DX: K74.60 Unspecified cirrhosis of liver (principal) ==

== ENCOUNTER 2021-10-06 08:16 | Day surgery (SDC) | payer MEDICAID, SELFPAY ==
[2021-10-06] VITALS (7 sets, daily range): BP systolic 109–141; BP diastolic 58–89; PULSE 67–83; RESP 16; TEMP 36.1–37.1; O2SAT 98–100; BMI 24.0
[2021-10-06] MEDS: Lactated Ringers 1,000 ML 30 ML IV (08:57)
--- NOTE | 2021-10-06 09:09 | HP.PCM_ITS ---
History and Physical Date of Admission: 10/06/21 LUH RAMOS, is a 51 M who presents to the office today for Follow up visit. Luh established with this clinic through hospitalization with [facility]. He presented to [facility] ED 02.20.21 with nausea and emesis of blood. Gastroenterology consulted 02.21.21 following EGD performed by [facility]. EGDs were repeated by gastroenterology with variceal banding performed for UGIB 02.23.21 in AM and PM. During this stay he was diagnosed with liver cirrhosis (likely r/t alcohol), portal hypertension, esophageal varices extending into stomach and thrombocytopenia (banded). EGD 04.14.2122 Grade II esophageal varices, banded; portal hypertensive gastropathy; esophageal candidiasis. Start Diflucan. EGD 04.18.21 to removed food bolus, successful; Schatzki ring, dilated 54F; non- bleeding erosive gastropathy. US RUQ 02.23.21 hepatomegaly with heterogenous echogenicity. Liver biopsy 05.19.21 findings consistent with cirrhosis. Medications currently recommended by this clinic include nadolol 10mg BID; xifaxan 550mg BID Plan last visit 05.06.21: Portal HTN, esophageal varices, thrombocytopenia, iron deficiency anemia ? Recommend biochemical workup, liver biopsy, add xifaxan for HE. Weight 08.17.21 175lbs Reports that he is doing very well at this time. Reports sleep disturbance, feels like it is hard to fall asleep and wakes in the four o?clock hours. Questioning whether his nights/days are mixed up or possible anxiety causing sleep disturbance. Seeing PCP in two weeks and will discuss the anxiety with them. He is able to perform his normal activities and continues to follow the recommended health diet. ROS Const Constitutional: No fatigue, malaise, night sweats, weight change, sleep problems, abnormal sleep pattern or change in appetite ENT ENT: No difficulty swallowing, hoarseness or sore throat Cardio Cardiology: No chest pain at rest Gastro GI: No abdominal pain, belching, bloating, change in bowel habits, change in stool character, coffee ground emesis, constipation, cramping, diarrhea, heartburn, difficulty swallowing, feeling full early, excessive flatus, incontinent of stools, Vomiting blood/hematemesis, Blood in stool, loose stools, Black,tarry stools, nausea/dyspepsia, pain with swallowing, vomiting or other Musc Musculoskeletal: No joint pain Skin Skin: No yellowing of the eye or itchy eyes Neuro Neurology: No behavioral changes Psych Psychiatric: No abnormal sleep pattern, No anxiety, No behavioral changes, No change in appetite and No depression Endo Endocrine: No fatigue or weight change Aller/Imm Allergy/Immunologic: No itchy eyes Flo/Lymp Hematologic/Lymphatic: No easy bleeding or easy bruising Exam Const General: cooperative and comfortable Nutritional Appearance: average body habitus and well nourished [facility] Head: normal to inspection Ears: hearing grossly normal bilaterally Nose: external nose normal Face and sinus: normal facial exam Mouth: oral mucosae normal Throat: posterior oropharynx normal Eyes General: appearance normal, both eyes and all related structures Neck Neck: normal visual inspection Chest Chest palpation & inspection: normal inspection of the chest and normal palpation of entire chest wall Resp Effort & Inspection: normal respiratory effort Auscultation: Bilateral: Clear to Auscultation Cardio Palpation: normal PMI Rate: regular rate Rhythm: regular rhythm GI Inspection: normal to inspection Auscultation: normal bowel sounds Percussion: normal to percussion Palpation: no hepatosplenomegaly Skin General: no rashes or lesions noted Neuro General: patient alert Extrem General: normal to inspection Psych Affect: normal affect Quality Reporting Tobacco Screening ([facility] 138) Smoking Status: Former smoker Assessment and Plan Assessment and Plan (1) Cirrhosis: ?Status:?Acute ?Plan - Dr. Chaudhary Friend, DO: The patient's meld has classically been between 6 and 8.? He has not shown any signs of decompensation at this time.? He does not have any ascites, encephalopathy, jaundice or signs and symptoms of GI bleed.? His ferritin continues to be significantly low at 6.? He does have a colonoscopy scheduled and will likely need a capsule endoscopy. (2) Gastric varices: ?Status:?Acute ?Plan - Dr. Chaudhary Friend, DO: Patient was identified to have very small gastric varices.? We will repeat his upper endoscopy to see how those gastric varices are doing and see if he needs any referral for TIPS procedure if there is any stigmata of bleeding in those varices. (3) Esophageal varices: ?Status:?Acute ?Plan - Dr. Chaudhary Friend, DO: Esophageal varices status post banding.? He is not showing any signs of esophageal dysphagia or upper GI bleeding at this time. (4) Portal hypertension: ?Status:?Acute ?Plan - Dr. Chaudhary Friend, DO: For hypertension without ascites.? He does have mild splenomegaly from his lizbeth l hypertension.? He remains on beta-gene therapy and doing well without any side effects (5) Thrombocytopenia: ?Status:?Acute ?Plan - Dr. Chaudhary Friend, DO: Thrombocytopenia secondary to splenic sequestration in setting of splenomegaly and cirrhosis.? Platelet count has remained from 80-100.? We will continue to monitor. I have re-examined the patient. There are no clinical changes since date of exam.
--- NOTE | 2021-10-06 09:30 | COLBX_PTH ---
PATIENT: LUH RAMOS LOC: EN U#:[id number] AGE/SX: 51/M ROOM: RE10/06/[address]: Dr. Jet Tenorio DO : 1970 BED: DIS: 10/06/2021 SPEC #: [id number] RECD: 10/06/21 12:48 STATUS: ELLE RENETTA #: [id number] SOPHIE: 10/06/21 09:[address]: Jet Tenorio DEPT: SURGICAL PATHOLOGY RECD BY: Luiza Bojorquez ENTERED: 10/06/21 13:30 SP TYPE: COLON BX ROSA MARIA DR: Dr. Aron Moya MD Tissues: A - Sigmoid colon biopsy B - SPLENIC FLEXURE C - Sigmoid colon biopsy Procedures: Surgery Specimen Level IV HEADER OPERATION: Colonoscopy, [place] [place] dilation, band, polypectomy PRE-OP DIAGNOSIS: Cirrhosis, gastric varices, esophageal varices, portal hypertension, thrombocytopenia TISSUE SUBMITTED: A ? Sigmoid polyp, B ? Splenic flexure polyp, C ? Sigmoid polyp #2 MICROSCOPIC DIAGNOSIS A. Sigmoid colon polyp, biopsy: Fragments of tubular adenoma. B. Colonic polyp at splenic flexure, biopsy: Fragments of tubular adenoma. C. Sigmoid polyp #2, biopsy: Tubular adenoma. AM:mirza 10/07/2021 MICROSCOPIC DESCRIPTION Slides are reviewed. GROSS DESCRIPTION A - Received in fixative is one container labeled with the patient's name and designated sigmoid polyp. The specimen consists of multiple irregular fragments of light cobos soft tissue that in aggregate measure 1.5 x 1.5 x 0.3 cm. The specimen is totally submitted in one cassette. B - Received in fixative is one container labeled with the patient's name and designated splenic flexure polyp. The specimen consists of multiple irregular fragments of light cobos soft tissue that in aggregate measure 1 x 0.6 x 0.1 cm. The specimen is totally submitted in one cassette. C - Received in fixative is one container labeled with the patient's name and designated sigmoid polyp #2. The specimen consists of one irregular fragment of light cobos soft tissue that measures 0.3 x 0.3 x 0.1 cm. The specimen is totally submitted in one cassette. / TITA:mirza 10/06/2021 TC:5 CPT: 97285 x3
--- NOTE | 2021-10-06 10:27 | OP.EGD_ITS ---
Patient Name: Kevin Moncada Procedure Date: 10/06/2021 9:14 AM Date of : 1970 Age: 51 Procedure: Upper GI endoscopy Indications: Iron deficiency anemia, 2nd degree variceal eradication (following bleed) Providers: Jet Tenorio DO Referring MD: Aron Moya Medicines: Monitored Anesthesia Care Patient Profile: This is a 51 year old male. Refer to note in patient chart for documentation of history and physical. Patient has symptoms. Complications: No immediate complications. Procedure: Pre-Anesthesia Assessment: - Prior to the procedure, a History and Physical was performed, and patient medications and allergies were reviewed. The risks and benefits of the procedure and the sedation options and risks were discussed with the patient. All questions were answered and informed consent was obtained. Patient identification and proposed procedure were verified by the physician in the pre-procedure area. Mental Status Examination: alert and oriented. Airway Examination: normal oropharyngeal airway and neck mobility. Respiratory Examination: clear to auscultation. CV Examination: normal. Prophylactic Antibiotics: The patient does not require prophylactic antibiotics. Prior Anticoagulants: The patient has taken no previous anticoagulant or antiplatelet agents. ASA Grade Assessment: II - A patient with mild systemic disease. After reviewing the risks and benefits, the patient was deemed in satisfactory condition to undergo the procedure. The anesthesia plan was to use moderate sedation / analgesia (conscious sedation). Immediately prior to administration of medications, the patient was re-assessed for adequacy to receive sedatives. The heart rate, respiratory rate, oxygen saturations, blood pressure, adequacy of pulmonary ventilation, and response to care were monitored throughout the procedure. The physical status of the patient was re-assessed after the procedure. After obtaining informed consent, the endoscope was passed under direct vision. Throughout the procedure, the patient's blood pressure, pulse, and oxygen saturations were monitored continuously. The pediatric colonoscope was introduced through the mouth, and advanced to the second part of duodenum. The Endoscope was introduced through the and advanced to the. The upper GI endoscopy was accomplished without difficulty. The patient tolerated the procedure well. Scope In: 9:29:18 AM Scope Out: 9:48:34 AM Total Procedure Duration Time 0 hours 19 minutes 16 seconds Findings: Grade II varices were found in the lower third of the esophagus. They were 5 mm in largest diameter. Two bands were successfully placed with incomplete eradication of varices. There was no bleeding during, and at the end, of the procedure. A moderate Schatzki ring was found in the middle third of the esophagus. A TTS dilator was passed through the scope. Dilation with a 15-16.5-18 mm balloon dilator was performed to 15 mm. The dilation site was examined and showed mild improvement in luminal narrowing. Estimated blood loss was minimal. Severe portal hypertensive gastropathy was found in the entire examined stomach. The first portion of the duodenum was normal. Impression: - Grade II esophageal varices. Incompletely eradicated. Banded. - Moderate Schatzki ring. Dilated. - Portal hypertensive gastropathy. - Normal first portion of the duodenum. - No specimens collected. Recommendation: - Discharge patient to home. - Full liquid diet for 5 days. - Continue present medications. Procedure Code(s): --- Professional --- 28405, Esophagogastroduodenoscopy, flexible, transoral; with band ligation of esophageal/gastric varices 81576, Esophagogastroduodenoscopy, flexible, transoral; with transendoscopic balloon dilation of esophagus (less than 30 mm diameter) CPT copyright 2017 [employer]. All rights reserved. The codes documented in this report are preliminary and upon cpc review may be revised to meet current compliance requirements. Jet Tenorio DO 10/06/2021 10:27:22 AM This report has been signed electronically. Number of Addenda: 1 Note Initiated On: 10/06/2021 9:14 AM Addendum Number: 1 Addendum Date: 01/10/2022 5:59:31 AM MAC was used as sedation for this procedure. Jet Tenorio DO 01/10/2022 5:59:36 AM This report has been signed electronically.
--- NOTE | 2021-10-06 10:28 | OP.CCLET_ITS ---
01/10/2022 Aron Moya [address] [place] [address] Re : Upper GI endoscopy procedure for Kevin Moncada Dear Dr. Moya This procedure was performed on September. My impressions and recommendations are as follows: Impressions : - Grade II esophageal varices. Incompletely eradicated. Banded. - Moderate Schatzki ring. Dilated. - Portal hypertensive gastropathy. - Normal first portion of the duodenum. - No specimens collected. Recommendations : - Discharge patient to home. - Full liquid diet for 5 days. - Continue present medications. My findings are described in the full procedure note, which is enclosed. If I can be of further assistance, please feel free to contact me at . Sincerely, Jet Tenorio, 10/06/2021 10:27:22 AM This report has been signed electronically.
--- NOTE | 2021-10-06 10:33 | OP.COLON_ITS ---
Patient Name: Kevin Moncada Procedure Date: 10/06/2021 9:48 AM Date of : 1970 Age: 51 Procedure: Colonoscopy Indications: Screening for colorectal malignant neoplasm Providers: Jet Tenorio DO Referring MD: Aron Moya Medicines: Monitored Anesthesia Care Patient Profile: This is a 51 year old male. Refer to note in patient chart for documentation of history and physical. Patient has symptoms. Last Colonoscopy: date unknown. Complications: No immediate complications. Procedure: Pre-Anesthesia Assessment: - Prior to the procedure, a History and Physical was performed, and patient medications and allergies were reviewed. The risks and benefits of the procedure and the sedation options and risks were discussed with the patient. All questions were answered and informed consent was obtained. Patient identification and proposed procedure were verified by the physician in the pre-procedure area. Mental Status Examination: alert and oriented. Airway Examination: normal oropharyngeal airway and neck mobility. Respiratory Examination: clear to auscultation. CV Examination: normal. Prophylactic Antibiotics: The patient does not require prophylactic antibiotics. Prior Anticoagulants: The patient has taken no previous anticoagulant or antiplatelet agents. ASA Grade Assessment: II - A patient with mild systemic disease. After reviewing the risks and benefits, the patient was deemed in satisfactory condition to undergo the procedure. The anesthesia plan was to use moderate sedation / analgesia (conscious sedation). Immediately prior to administration of medications, the patient was re-assessed for adequacy to receive sedatives. The heart rate, respiratory rate, oxygen saturations, blood pressure, adequacy of pulmonary ventilation, and response to care were monitored throughout the procedure. The physical status of the patient was re-assessed after the procedure. After I obtained informed consent, the scope was passed under direct vision. Throughout the procedure, the patient's blood pressure, pulse, and oxygen saturations were monitored continuously. The pediatric colonoscope was introduced through the anus and advanced to the terminal ileum. The colonoscopy was performed without difficulty. The patient tolerated the procedure well. The quality of the bowel preparation was good. Scope In: 9:52:19 AM Scope Withdrawal Time 0 hours 18 minutes 42 seconds Scope Out: 10:20:03 AM Total Procedure Duration Time 0 hours 27 minutes 44 seconds Findings: Hemorrhoids were found on perianal exam. Non-bleeding internal hemorrhoids were found during retroflexion. The hemorrhoids were Grade II (internal hemorrhoids that prolapse but reduce spontaneously). Four sessile polyps were found in the sigmoid colon, splenic flexure and hepatic flexure. The polyps were 2 to 3 mm in size. These polyps were removed with a hot snare. Resection and retrieval were complete. Verification of patient identification for the specimen was done. Estimated blood loss was minimal. Area was successfully injected with 5 mL Ankita ink for tattooing. Estimated blood loss was minimal. A few small-mouthed diverticula were found in the recto-sigmoid colon and sigmoid colon. Impression: - Hemorrhoids found on perianal exam. - Non-bleeding internal hemorrhoids. - Four 2 to 3 mm polyps in the sigmoid colon, at the splenic flexure and at the hepatic flexure, removed with a hot snare. Resected and retrieved. Injected. - Diverticulosis in the recto-sigmoid colon and in the sigmoid colon. Recommendation: - Discharge patient to home. - Resume previous diet. - Continue present medications. - Await pathology results. - Repeat colonoscopy in 1 year for surveillance after piecemeal polypectomy. Procedure Code(s): --- Professional --- 74967, Colonoscopy, flexible; with removal of tumor(s), polyp(s), or other lesion(s) by snare technique 24556, Colonoscopy, flexible; with directed submucosal injection(s), any substance CPT copyright 2017 [employer]. All rights reserved. The codes documented in this report are preliminary and upon truck driver instructor review may be revised to meet current compliance requirements. Jet Tenorio DO 10/06/2021 10:32:44 AM This report has been signed electronically. Number of Addenda: 1 Note Initiated On: 10/06/2021 9:48 AM Addendum Number: 1 Addendum Date: 01/10/2022 5:59:47 AM MAC was used as sedation for this procedure. Jet Tenorio DO 01/10/2022 5:59:53 AM This report has been signed electronically.
--- NOTE | 2021-10-06 10:33 | OP.CCLET_ITS ---
01/10/2022 Aron Moya [address] [place] [address] Re : Colonoscopy procedure for Kevin Moncada Dear Dr. Moya This procedure was performed on September. My impressions and recommendations are as follows: Impressions : - Hemorrhoids found on perianal exam. - Non-bleeding internal hemorrhoids. - Four 2 to 3 mm polyps in the sigmoid colon, at the splenic flexure and at the hepatic flexure, removed with a hot snare. Resected and retrieved. Injected. - Diverticulosis in the recto-sigmoid colon and in the sigmoid colon. Recommendations : - Discharge patient to home. - Resume previous diet. - Continue present medications. - Await pathology results. - Repeat colonoscopy in 1 year for surveillance after piecemeal polypectomy. My findings are described in the full procedure note, which is enclosed. If I can be of further assistance, please feel free to contact me at . Sincerely, Jet Tenorio DO 10/06/2021 10:32:44 AM This report has been signed electronically.
== END 2021-10-06 11:10 | disposition home or self-care (01) ==
LOC: EN 08:17 → AC 08:18
PROVIDERS: PCP Family Medicine; Referring Provider Family Medicine; Visit Provider Internal Medicine Gastroenterology
PROC: 0DJD8ZZ Inspection of Lower Intestinal Tract, Via Natural or Artificial Opening Endoscopic (ICD-10-PCS; CPT 45378; principal; 2021-10-06 09:25)
DX: K22.2 Esophageal obstruction (principal); K76.6 Portal hypertension; I85.00 Esophageal varices without bleeding; K74.60 Unspecified cirrhosis of liver; D12.5 Benign neoplasm of sigmoid colon; D12.3 Benign neoplasm of transverse colon; K64.1 Second degree hemorrhoids; K31.89 Other diseases of stomach and duodenum; K57.31 Diverticulosis of large intestine without perforation or abscess with bleeding; R16.1 Splenomegaly, not elsewhere classified; D69.59 Other secondary thrombocytopenia; D50.9 Iron deficiency anemia, unspecified; Z87.891 Personal history of nicotine dependence; Z12.11 Encounter for screening for malignant neoplasm of colon
CPT/HCPCS: 45385; 43244; 45381; 43249; 88305; J7120; A4648; J2405

== ENCOUNTER 2021-10-18 11:12 | Outpatient (CLI) | payer MEDICAID, SELFPAY ==
[2021-10-18 12:42] LABS: Erythrocyte Sedimentation Rate 20 mm/hr (0-20)
[2021-10-18 12:44] LABS: International Normalized Ratio 1.1; Prothrombin Time (Protime)PT. 14.1 SECONDS (11.7-14.9)
[2021-10-18 12:45] LABS: Absolute Lymphocyte Count 1.13 X10^3/uL (0.83-4.51); Absolute Neutrophil Count 3.6 X10^3/uL (2.0-7.7); Basophil# 0.02 X10^3/uL; Basophil% 0.4 % (0-1); Eosinophils% 3.6 % (0-5); Lymphocyte # 1.13 X10^3/ul (0.83-4.51); Lymphocyte % 20.5 % (19-41); Mean Corp Hgb Conc 32.6 g/dL (32-36); Mean Corpuscular Hgb 31.8 pg (27.0-32.0); Mean Corpuscular Volume 97.7 fL (80-94); Mean Platelet Vol. 12.6 fl (6.2-12.0); Monocyte# 0.57 X10^3/uL; Monocyte% 10.3 % (0-10); NRBC Flagged by Analyzer 0 % (0-5); Neutrophil # 3.58 X10^3/uL (2.7-7.7); Platelet Count 108 K/mm3 (150-450); RBC Distribution Width CV 14.2 % (11.6-14.6); RBC Distribution Width SD 51.4 fl (35.1-43.9); White Blood Count 5.5 K/mm3 (4.4-11.0)
[2021-10-18 13:28] LABS: ALB/GLOB Ratio 0.9 RATIO (0.9-2.4); AST(SGOT) 46 U/L (15-37); Alanine Aminotransfer ALT/SGPT 33 U/L (16-61); Albumin, Serum 3.3 g/dL (3.2-5.0); Alkaline Phosphatase 116 U/L (45-117); Anion Gap 5 (5-15); BUN 12 mg/dL (7-18); BUN/Creat Ratio 14.5 RATIO (10-20); CRP < 2.90 mg/L (0.0-3.0); Calcium,Total 9.1 mg/dL (8.5-10.1); Chloride 109 mmol/L (98-107); Creatinine, Serum 0.83 mg/dL (0.70-1.30); EST Glomerular Filtration Rate 104 mL/min (>60); Est Glom Filt Rate - Afr Amer 126 mL/min (>60); Globulin 3.8 g/dL (2.2-4.2); Glucose 129 mg/dL (74-106); LDH 149 U/L (87-241); Potassium 4.3 mmol/L (3.5-5.1); Protein, Total 7.1 g/dL (6.4-8.2); Sodium Level 142 mmol/L (136-145)
== END 2021-10-18 23:59 | disposition home or self-care (01) ==
LOC: LAB 11:13
PROVIDERS: PCP Family Medicine; Visit Provider Internal Medicine Gastroenterology
DX: K74.60 Unspecified cirrhosis of liver (principal)
CPT/HCPCS: 36415; 80053; 82140; 83615; 85025; 85610; 85652; 86140

== ENCOUNTER → 2022-01-12 | Outpatient (CLI) | payer MEDICAID, SELFPAY ==
[2022-01-12 12:12] LABS: Absolute Lymphocyte Count 1.55 X10^3/uL (0.83-4.51); Absolute Neutrophil Count 3.7 X10^3/uL (2.0-7.7); Basophil# 0.05 X10^3/uL; Basophil% 0.8 % (0-1); Eosinophil# 0.28 X10^3/uL; Eosinophils% 4.4 % (0-5); Hemoglobin 14.7 g/dL (13.0-16.5); Lymphocyte # 1.55 X10^3/ul (0.83-4.51); Lymphocyte % 24.2 % (19-41); Mean Corp Hgb Conc 32.7 g/dL (32-36); Mean Corpuscular Volume 97.8 fL (80-94); Mean Platelet Vol. 12.4 fl (6.2-12.0); Monocyte# 0.81 X10^3/uL; Monocyte% 12.6 % (0-10); NRBC Flagged by Analyzer 0 % (0-5); Neutrophil % 57.7 % (47-70); Platelet Count 121 K/mm3 (150-450); RBC Distribution Width CV 14.6 % (11.6-14.6); RBC Distribution Width SD 52.7 fl (35.1-43.9); White Blood Count 6.4 K/mm3 (4.4-11.0)
[2022-01-12 12:41] LABS: Vitamin B12 373 pg/mL (211-911)
[2022-01-12 13:29] LABS: ALB/GLOB Ratio 0.8 RATIO (0.9-2.4); AST(SGOT) 68 U/L (15-37); Alanine Aminotransfer ALT/SGPT 43 U/L (16-61); Albumin, Serum 3.7 g/dL (3.2-5.0); Alkaline Phosphatase 109 U/L (45-117); Anion Gap 11 (5-15); BUN 9 mg/dL (7-18); BUN/Creat Ratio 10.8 RATIO (10-20); Calcium,Total 9.4 mg/dL (8.5-10.1); Chloride 111 mmol/L (98-107); Creatinine, Serum 0.83 mg/dL (0.70-1.30); EST Glomerular Filtration Rate 103 mL/min (>60); Est Glom Filt Rate - Afr Amer 124 mL/min (>60); Ferritin 25 ng/mL (26-388); Globulin 4.5 g/dL (2.2-4.2); Glucose 127 mg/dL (74-106); Iron 70 ug/dL (65-175); Iron Binding Capacity,Total 421 ug/dL (250-450); Potassium 4.4 mmol/L (3.5-5.1); Protein, Total 8.2 g/dL (6.4-8.2); Sodium Level 143 mmol/L (136-145)
[2022-01-15 11:13] LABS: VITAMIN B6 7.4 ug/L (3.4-65.2)
== END | disposition home or self-care (01) ==
LOC: MFPLAB 09:58
PROVIDERS: PCP Family Medicine; Referring Provider Family Medicine; Visit Provider Family Medicine
DX: K74.60 Unspecified cirrhosis of liver (principal); R73.02 Impaired glucose tolerance (oral); D50.9 Iron deficiency anemia, unspecified; G62.9 Polyneuropathy, unspecified; Z72.0 Tobacco use
CPT/HCPCS: 36415; 80053; 82140; 82607; 82728; 83036; 83540; 83550; 84207; 84425; 85025

== ENCOUNTER → 2022-03-07 | Outpatient (CLI) | payer MEDICAID, SELFPAY ==
--- NOTE | 2022-03-07 07:12 | MRI_ITS ---
EXAM: MR RIGHT UPPER EXTREMITY WITHOUT INTRAVENOUS CONTRAST, SHOULDER CLINICAL INDICATION: rule out RC tear TECHNIQUE: Multiplanar and multisequence MR images of the right shoulder without intravenous contrast. This report was created using [employer] technology. COMPARISON: None. FINDINGS: TENDONS: SUPRASPINATUS: Moderate supraspinatus tendinosis. No supraspinatus tendon tear. INFRASPINATUS: Mild infraspinatus tendinosis. No infraspinatus tendon tear. SUBSCAPULARIS: Partial width full-thickness tearing of the subscapularis tendon is suspected. This appears to be chronic as there is atrophy of the subscapularis muscle. TERES MINOR: Unremarkable. Intact. BICEPS BRACHII, LONG HEAD: Long head of biceps tendon is not well seen within the bicipital groove and may be torn and/or displaced. LIGAMENTS: GLENOHUMERAL: Unremarkable. Intact. CORACOACROMIAL: Type I acromion with flat undersurface. No coracoacromial ligament thickening. No subacromial enthesophyte. No os acromiale. MUSCLES: Unremarkable. No rotator cuff muscle atrophy. FLUID: Small amount of fluid in the subacromial/subdeltoid bursa is compatible with bursitis. No joint effusion. CARTILAGE: Unremarkable. Articular cartilage intact. GLENOID LABRUM: Unremarkable. Intact, limited evaluation on non-arthrographic exam. BONES/JOINTS: Unremarkable. No fracture. No abnormal bone marrow signal. OTHER SOFT TISSUES: Unremarkable. No rotator interval edema. MRI/Upper Ext Joint Only(Routine) IMPRESSION: 1. Partial width full-thickness tearing of the subscapularis tendon is suspected. This appears to be chronic as there is atrophy of the subscapularis muscle. 2. Long head of biceps tendon is not well seen within the bicipital groove and may be torn and/or displaced. 3. Small amount of fluid in the subacromial/subdeltoid bursa is compatible with bursitis. Electronically Signed: Franklin Rogers MD at 23:28 EST ,
== END | disposition home or self-care (01) ==
LOC: MRI 07:12
PROVIDERS: PCP Family Medicine; Referring Provider Orthopaedic Surgery Sports Medicine; Visit Provider Orthopaedic Surgery Sports Medicine
DX: M75.41 Impingement syndrome of right shoulder (principal)
CPT/HCPCS: 73221

== ENCOUNTER → 2022-03-08 | Outpatient (CLI) | payer MEDICAID, SELFPAY ==
--- NOTE | 2022-03-08 13:03 | NEURO ---
NCS and/or EMG Patient Report Ordering Doctor: Aron Moya DATE OF SERVICE: 03/08/22 Kevin presents for electrodiagnostic testing of the upper limbs. He reports numbness and tingling in both arms, worse on the right side. Electrodiagnostic findings: Right median motor nerve demonstrates normal distal latency and amplitude with reduced conduction velocity. Left median motor nerve demonstrates prolonged distal latency with normal amplitude and reduced conduction velocity. Right ulnar motor nerve demonstrates normal distal latency and amplitude with an approximately 15% drop in conduction across the elbow. Left ulnar motor response is within normal limits. Normal median and ulnar F waves. Prolonged right and left median sensory latencies at the wrist. On needle EMG, all muscles tested in the upper limbs showed no evidence of denervation with normal motor unit action potentials Electrodiagnostic impression: This is an abnormal study in the upper limbs 1. Electrodiagnostic findings demonstrate bilateral median mononeuropathy. This is consistent with a mild right carpal tunnel syndrome and a moderate left carpal tunnel syndrome. 2. Electrodiagnostic findings demonstrate right-sided ulnar neuropathy, consistent with a mild right cubital tunnel syndrome. 3. No electrodiagnostic evidence is noted for cervical radiculopathy.
== END | disposition home or self-care (01) ==
LOC: PSN 10:24
PROVIDERS: PCP Family Medicine; Referring Provider Family Medicine; Visit Provider Family Medicine
DX: G62.9 Polyneuropathy, unspecified (principal)
CPT/HCPCS: 95886; 95913

== ENCOUNTER → 2022-04-05 | Outpatient (CLI) | payer MEDICAID, SELFPAY ==
[2022-04-05 14:27] LABS: Absolute Lymphocyte Count 1.76 X10^3/uL (0.83-4.51); Absolute Neutrophil Count 3.8 X10^3/uL (2.0-7.7); Basophil# 0.05 X10^3/uL; Basophil% 0.7 % (0-1); Eosinophil# 0.27 X10^3/uL; Hematocrit 45.4 % (40-54); Hemoglobin 15.2 g/dL (13.0-16.5); Lymphocyte # 1.76 X10^3/ul (0.83-4.51); Lymphocyte % 26.1 % (19-41); Mean Corp Hgb Conc 33.5 g/dL (32-36); Mean Corpuscular Hgb 32.8 pg (27.0-32.0); Mean Corpuscular Volume 98.1 fL (80-94); Mean Platelet Vol. 11.8 fl (6.2-12.0); Monocyte# 0.88 X10^3/uL; Monocyte% 13.1 % (0-10); NRBC Flagged by Analyzer 0 % (0-5); Neutrophil # 3.77 X10^3/uL (2.7-7.7); POSITIVE COUNT YES; Platelet Count 99 K/mm3 (150-450); RBC Distribution Width CV 14.8 % (11.6-14.6); RBC Distribution Width SD 54.2 fl (35.1-43.9); Red Blood Count 4.63 M/mm3 (4.6-6.2); White Blood Count 6.7 K/mm3 (4.4-11.0)
--- NOTE | 2022-04-05 14:35 | NEURO ---
NCS and/or EMG Patient Report Ordering Doctor: Aron Moya DATE OF SERVICE: 04/05/22 Kevin presents for electrodiagnostic testing of the lower limbs. He reports low back pain with radiation into both legs and numbness. Electrodiagnostic findings: Peroneal motor nerve demonstrates normal distal latency, amplitude and conduction velocity bilaterally. Tibial motor response within normal limits bilaterally. Normal tibial and peroneal F waves. H reflex borderline prolonged bilaterally. Mildly prolonged sural latency is noted bilaterally. Normal superficial peroneal latency bilaterally. On needle EMG, all muscles tested in the lower limbs, as well as lumbar paraspinals, showed no evidence of denervation with normal motor unit action potentials. Electrodiagnostic impression: This is a mildly abnormal study in the lower limbs 1. 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 2. No electrodiagnostic evidence is noted for peripheral polyneuropathy. 3. No electrodiagnostic evidence is noted for lumbosacral radiculopathy.
[2022-04-05 14:36] LABS: International Normalized Ratio 1.2; Prothrombin Time (Protime)PT. 14.6 SECONDS (11.7-14.9)
[2022-04-05 14:56] LABS: ALB/GLOB Ratio 0.9 RATIO (0.9-2.4); AST(SGOT) 70 U/L (15-37); Alanine Aminotransfer ALT/SGPT 44 U/L (16-61); Albumin, Serum 3.8 g/dL (3.2-5.0); Alkaline Phosphatase 111 U/L (45-117); Anion Gap 4 (5-15); BUN 12 mg/dL (7-18); BUN/Creat Ratio 12.3 RATIO (10-20); CRP < 2.90 mg/L (0.0-3.0); Calcium,Total 9.5 mg/dL (8.5-10.1); Chloride 109 mmol/L (98-107); Creatinine, Serum 0.97 mg/dL (0.70-1.30); EST Glomerular Filtration Rate 86 mL/min (>60); Est Glom Filt Rate - Afr Amer 104 mL/min (>60); Globulin 4.4 g/dL (2.2-4.2); Glucose 126 mg/dL (74-106); LDH 197 U/L (87-241); Potassium 4.7 mmol/L (3.5-5.1); Protein, Total 8.2 g/dL (6.4-8.2); Sodium Level 140 mmol/L (136-145)
[2022-04-05 15:01] LABS: Differential Comment SCANNED; Differential Indicated SCAN CRITERIA MET
[2022-04-05 15:03] LABS: Erythrocyte Sedimentation Rate 34 mm/hr (0-20)
== END | disposition home or self-care (01) ==
PROVIDERS: Internal Medicine Gastroenterology; PCP Family Medicine; Visit Provider Family Medicine
DX: G62.9 Polyneuropathy, unspecified (principal)
CPT/HCPCS: 36415; 80053; 82140; 83615; 85025; 85610; 85652; 86140; 95886; 95911

== ENCOUNTER → 2022-05-17 | Outpatient (CLI) | payer MEDICAID, SELFPAY ==
[2022-05-17 11:23] LABS: Bacteria 0 SEEN /hpf (None Seen); Mucous, Urine 0 SEEN /hpf (<or=2+); Red Blood Cells-Urine 0 SEEN /hpf (0-5); Squamous Epithelial Cells - UA 0 SEEN /hpf (0-5); White Blood Cells 0 SEEN /hpf (0-5)
[2022-05-17 14:58] LABS: Absolute Lymphocyte Count 1.25 X10^3/uL (0.83-4.51); Basophil# 0.05 X10^3/uL; Eosinophil# 0.18 X10^3/uL; Eosinophils% 3.4 % (0-5); Hematocrit 43.7 % (40-54); Lymphocyte # 1.25 X10^3/ul (0.83-4.51); Lymphocyte % 23.8 % (19-41); Mean Corpuscular Volume 99.8 fL (80-94); Mean Platelet Vol. 12.8 fl (6.2-12.0); Monocyte# 0.73 X10^3/uL; Monocyte% 13.9 % (0-10); NRBC Flagged by Analyzer 0.4 % (0-5); Neutrophil # 3.04 X10^3/uL (2.7-7.7); Neutrophil % 57.7 % (47-70); POSITIVE COUNT YES; Platelet Count 75 K/mm3 (150-450); RBC Distribution Width CV 14.1 % (11.6-14.6); RBC Distribution Width SD 51.8 fl (35.1-43.9); Red Blood Count 4.38 M/mm3 (4.6-6.2); White Blood Count 5.3 K/mm3 (4.4-11.0)
[2022-05-17 15:01] LABS: Color, Urine Yellow (Yellow); Glucose, Dipstick Normal (Normal); Ketone-Dipstick 5 mg/dl (Negative); Leukocyte Esterase-Dipstick 25 /ul (Negative); Nitrite-Dipstick Negative (Negative); Occult Blood-Urine Negative /ul (Negative); Protein-Dipstick Negative (Negative); Specific Gravity, Urine 1.015 (1.002-1.030); Urine Bilirubin Dipstick Negative (Negative); Urine Clarity Clear (Clear); Urine Urobilinogen 1 mg/dl (Normal)
[2022-05-17 15:17] LABS: Hemoglobin A1c 6.1 % (3.8-5.6)
[2022-05-17 15:22] LABS: Vitamin B12 436 pg/mL (211-911)
[2022-05-17 15:37] LABS: ALB/GLOB Ratio 0.9 RATIO (0.9-2.4); AST(SGOT) 66 U/L (15-37); Alanine Aminotransfer ALT/SGPT 45 U/L (16-61); Albumin, Serum 3.6 g/dL (3.2-5.0); Alkaline Phosphatase 106 U/L (45-117); Anion Gap 7 (5-15); BUN 10 mg/dL (7-18); BUN/Creat Ratio 11.1 RATIO (10-20); Calcium,Total 9.4 mg/dL (8.5-10.1); Chloride 106 mmol/L (98-107); EST Glomerular Filtration Rate 94 mL/min (>60); Est Glom Filt Rate - Afr Amer 113 mL/min (>60); Ferritin 45 ng/mL (26-388); Globulin 4.1 g/dL (2.2-4.2); Glucose 141 mg/dL (74-106); Iron 46 ug/dL (65-175); Iron Binding Capacity,Total 346 ug/dL (250-450); Potassium 4.5 mmol/L (3.5-5.1); Protein, Total 7.7 g/dL (6.4-8.2); Sodium Level 140 mmol/L (136-145)
== END | disposition home or self-care (01) ==
LOC: MTLAB 11:17
PROVIDERS: PCP Family Medicine; Referring Provider Family Medicine; Visit Provider Family Medicine
DX: K74.60 Unspecified cirrhosis of liver (principal); R73.02 Impaired glucose tolerance (oral); D64.9 Anemia, unspecified; Z72.0 Tobacco use
CPT/HCPCS: 80053; 81001; 82140; 82607; 82728; 82746; 83036; 83540; 83550; 85025

== ENCOUNTER 2022-06-21 09:37 | Day surgery (SDC) | payer MEDICAID, SELFPAY ==
[2022-06-21] VITALS (7 sets, daily range): BP systolic 91–165; BP diastolic 70–77; PULSE 61–74; RESP 16–20; TEMP 36.1–36.7; O2SAT 92–99; BMI 27.6
--- NOTE | 2022-06-21 10:23 | PCM.HP.STD ---
HPI - General HPI Narrative LUH RAMOS is a 52 M who presents for right ECTR and right cubital tunnel release. No changes to history and physical exam. Patient wishes to proceed. Right elbow and right wrist both marked. Discussed postoperative restrictions gentle range of motion no heavy lifting follow-up in the office in 2 days time and narcotic counseling. MR#: [id number] Acct: [id number] Name:? LUH RAMOS Rep #: [id number] : 1970 ? ? Provider: Dr. Chicho Pearl MD Age/Sex:? 52/M ? ? [place] [facility] [place] Status: Signed Intake Vital Signs ? 02/20/2209:06 Height 5 ft 9 in Intake Visit Reasons:?right elbow Chief Complaint: right shoulder/elbow Is patient in pain?: Yes Pain scale (1-10): 7 Allergies No Known Allergies Allergy (Verified 06/08/22 13:02) Medications ipratropium 0.5 mg-albuterol 3 mg (2.5 mg base)/3 mL nebulization soln 3 ml inhalation PRN PRN Wheezing 02/20/21 [History Confirmed 06/08/22] ferrous sulfate 325 mg (65 mg iron) tablet 325 mg PO DAILY 09/30/21 [History Confirmed 06/08/22] vitamin E 268 mg (400 unit) capsule 400 unit PO DAILY 09/30/21 [History Confirmed 06/08/22] nadolol 20 mg tablet 10 mg PO BID #60 tabs 11/03/21 [Rx Confirmed 06/08/22] pantoprazole 40 mg tablet,delayed release 40 mg PO DAILY #30 tabs 02/21/22 [Rx Confirmed 06/08/22] ursodiol 300 mg capsule 300 mg PO QHS #60 caps 02/21/22 [Rx Confirmed 06/08/22] PFSH Medical History? ADHD Alcohol use Anemia Arthritis Asthma Back pain Chronic cough Colitis COPD (chronic obstructive pulmonary disease) Cubital tunnel syndrome on right Easy bruising Esophageal varices Gastric varices GERD (gastroesophageal reflux disease) Hiatal hernia History of echocardiogram History of GI bleed History of hiatal hernia History of stress test History of ulceration Hx of fracture of ankle Hx of ulcerative colitis Injury of back Internal impingement of right shoulder Irritable bowel Leg cramps Low iron Portal hypertension Primary osteoarthritis, right elbow Restless legs Right carpal tunnel syndrome Right elbow pain Right shoulder pain Shortness of breath on exertion Smoker Tear of right biceps muscle Thrombocytopenia Wears dentures Wears glasses Surgical History? History of esophagogastroduodenoscopy (EGD) History of foot surgery Hx of colonoscopy Hx of elbow surgery Hx of repair of right rotator cuff Family History? Other Cancer Diabetes Heart disease Social History? Smoking Status:? Current every day smoker tobacco type: cigarettes HPI right elbow Details: Parts of this documentation were recorded by a scribe, this documentation accurately reflects the service provided and the decisions made by me, Dr. Chicho Pearl MD 06/08/22 [id number]. LUH RAMOS is a 52 year old M here today for follow-up on right elbow cubital tunnel syndrome and right carpal tunnel syndrome.? Patient had to delay as his and mother both the undergoing her procedures.? No changes symptoms still mostly in the third fourth and fifth digit numbness and difficulty with weakness in the hand. Ortho Exam General General: Yes no acute distress Neurologic: Yes alert and Yes oriented x3 Psychologic: Yes reasonable and appropriate Right Wrist/Hand Skin/Wound: Yes CDI, No Ecchymosis, Yes nail intact and Yes capillary refill normal Right Wrist: Yes Froment's Motor: EPL: 5, FDP-2: 5, 1st Dorsal Interosseous: 5 and APB: 5 Sensation: Radial: I, Ulnar: D and Median: D WRIST: He has a positive Phalen's test.? Positive Tinel's test at the elbow no obvious overlying scar tissue at the ulnar nerve. no subluxation of ulnar nerve. positive wartenburg sign.? Left Wrist/Hand Skin/Wound: No Ecchymosis Right Shoulder Skin/Wound: Yes CDI, No erythema and No swelling Testing: Positive TTP Biceps; Negative TTP AC Joint or Drop Arm SHOULDER: He has a Brad sign with the proximal biceps migrating distally pain in that area cramping over the biceps muscle area. Supplemental Info NCS and/or EMG Patient Report Ordering Doctor: Aron Moya DATE OF SERVICE: 03/08/22 Luh presents for electrodiagnostic testing of the upper limbs.? He reports numbness and tingling in both arms, worse on the right side. Electrodiagnostic findings: Right median motor nerve demonstrates normal distal latency and amplitude with reduced conduction velocity.? Left median motor nerve demonstrates prolonged distal latency with normal amplitude and reduced conduction velocity.? Right ulnar motor nerve demonstrates normal distal latency and amplitude with an approximately 15% drop in conduction across the elbow.? Left ulnar motor response is within normal limits.? Normal median and ulnar F waves.? Prolonged right and left median sensory latencies at the wrist. On needle EMG, all muscles tested in the upper limbs showed no evidence of denervation with normal motor unit action potentials Electrodiagnostic impression: This is an abnormal study in the upper limbs 1.? Electrodiagnostic findings demonstrate bilateral median mononeuropathy.? This is consistent with a mild right carpal tunnel syndrome and a moderate left carpal tunnel syndrome. 2.? Electrodiagnostic findings demonstrate right-sided ulnar neuropathy, consistent with a mild right cubital tunnel syndrome. 3.? No electrodiagnostic evidence is noted for cervical radiculopathy. Coding Level of Care Code Off vis,est,level 4 Diagnoses Right carpal tunnel syndrome? G56.01 Cubital tunnel syndrome on right? G56.21 Assessment and Plan Assessment and Plan (1) Right carpal tunnel syndrome: ?Status:?Acute ?Plan: 52-year-old man he seems to have a chronic over 10 years cubital tunnel syndrome as well as about a 6 to 12-month history of carpal tunnel syndrome on both sides these are confirmed on clinical exam as well as nerve conduction studies on the right side and seems to be his more symptomatic side.? We discussed nonsurgical and surgical means of treating this.? Nonsurgical option may result in long-term disability difficulty for the nerve to recover worsening or permanent numbness and damage to the nerve and muscle atrophy.? Surgery has its own set of complications.? Surgery would be in the form of right elbow cubital tunnel release and right endoscopic carpal tunnel release possible open.? He wishes to go ahead with surgical intervention and this will likely be sometime in the near future depending on his own personal situation. Pros and cons risks and benefits were discussed with the patient including but not limited to infection, pain, stiffness, bleeding, damage to surrounding structures, neurovascular injury, recurrence or retear, failure or wear of hardware or fixation, instability, fracture, deep vein thrombosis and pulmonary embolism, anesthetic risks, patient dissatisfaction, need for further surgery, making the problem no better or worse, the cubital tunnel release may be more unreliable given the longstanding nature of this as well as the nature of the surgery, and other risks.? Patient understood and wished to proceed with surgery, and signed the informed consent documentation. [facility] Medical History (Updated 06/14/22 @ 10:22 by Tamra Kohli) ADHD Alcohol use Anemia Arthritis Asthma Back pain Chronic cough Cirrhosis Colitis COPD (chronic obstructive pulmonary disease) Cubital tunnel syndrome on right Easy bruising Esophageal varices Gastric varices GERD (gastroesophageal reflux disease) Hiatal hernia History of echocardiogram History of GI bleed History of GI bleed History of hiatal hernia History of stress test History of ulceration Hx of fracture of ankle Hx of ulcerative colitis Injury of back Internal impingement of right shoulder Irritable bowel Leg cramps Low iron Portal hypertension Primary osteoarthritis, right elbow Restless legs Right carpal tunnel syndrome Right elbow pain Right shoulder pain Shortness of breath on exertion Smoker Tear of right biceps muscle Thrombocytopenia Wears dentures Wears glasses Home Medications ipratropium 0.5 mg-albuterol 3 mg (2.5 mg base)/3 mL nebulization soln 3 ml inhalation PRN PRN Wheezing 02/20/21 [History Last Taken Unknown] ferrous sulfate 325 mg (65 mg iron) tablet 325 mg PO DAILY 09/30/21 [History Last Taken Unknown] vitamin E 268 mg (400 unit) capsule 400 unit PO DAILY 09/30/21 [History Last Taken Unknown] pantoprazole 40 mg tablet,delayed release 40 mg PO DAILY #30 tabs 02/21/22 [Rx Last Taken 06/21/22 07:30] ursodiol 300 mg capsule 300 mg PO QHS #60 caps 02/21/22 [Rx Last Taken Unknown] albuterol sulfate 90 mcg/actuation aerosol inhaler 1 - 2 puff inhalation PRN PRN ASTHMA 06/14/22 [History Last Taken Unknown] nadolol 20 mg tablet 20 mg PO BID 06/14/22 [History Last Taken 06/21/22 07:30] tiotropium bromide 2.5 mcg/actuation mist for inhalation (Spiriva Respimat) 2 puff inhalation DAILY 06/14/22 [History Last Taken Unknown] Allergy/AdvReac Type Severity Reaction Status Date / Time No Known Allergies Allergy Verified 06/21/22 10:17 Family History Other Cancer Diabetes Heart disease Surgical History (Updated 06/14/22 @ 10:18 by Tamra Kohli) History of esophagogastroduodenoscopy (EGD) History of esophagogastroduodenoscopy (EGD) History of foot surgery Hx of colonoscopy Hx of elbow surgery Hx of repair of right rotator cuff Social History Smoking Status: Current every day smoker tobacco type: cigarettes
[2022-06-21] MEDS: Lactated Ringers 1,000 ML 15 ML IV (10:33)
[2022-06-21] MEDS: Cefazolin 2 GM in 0.9% Normal Saline 100 ML IV (11:54)
[2022-06-21] MEDS: Bupivacaine 0.25% 30 ML Vial (12:45)
--- NOTE | 2022-06-21 13:20 | PCM.OPRPT ---
Problems Associated Problem List Diagnoses (1) Cubital tunnel syndrome on right: (2) Right carpal tunnel syndrome: Report of Operation Date of Procedure: 06/21/22 Pre-Operative Diagnosis: Right elbow cubital tunnel syndrome and right carpal tunnel syndrome Post-Operative Diagnosis: Same Surgery/Procedure Performed:: Right elbow cubital tunnel release and right endoscopic carpal tunnel release Surgeon: Chicho Pearl Type of Anesthesia: General and Local Anesthesiologist: Keven Thayer Estimated Blood Loss (mL): 50 Description of Procedure: Patient was brought to the operating room theater.? The patient was administered 2g iv ancef prior to the start of the procedure.? Placed supine on the operating room table.? Anesthesia induced GA.? SCDs on the legs.? Tourniquet applied to the right upper operative extremity, appropriately padded. Arm table used. Operative extremity prepped and draped in the usual sterile fashion with chlorhexidine-based prep solution allowing over 3 minutes drying time prior to draping.? Preoperative timeout performed to confirm the site patient and the surgery. Sterile Esmarch was used to exsanguinate the limb limb elevated tourniquet inflated to 250 mmHg. Began by making a longitudinal incision at the medial aspect of the elbow directly over the ulnar nerve. Carried dissection down through skin and subcutaneous tissue achieved meticulous hemostasis. Identified the nerve proximally. Followed this down distally. Decompress the nerve from proximal at the intermuscular septum down to Jarrell's ligament the FCU aponeurosis and down distally to the motor branch of the ulnar nerve. Removed all 5 typical sites of compression. Nerve was mobile. Hemostasis achieved. 8cc 0.25% bupivicaine around incision. No subluxation of the nerve therefore this was left in situ. Next, I used the [employer] center line endoscopic carpal tunnel kit / technique. Exsanguinated limb. 2cc 0.25% bupivicaine at incision site. ? I made a transverse 2 cm incision in line with the? transverse wrist crease.? This was in line with the fourth digit.? I carried the dissection down through skin and subcutaneous tissue achieved meticulous hemostasis. Just ulnar to palmaris tendon.? I incised the antebrachial fascia.? I passed sequential dilators into the carpal tunnel along the radial border of the Guyon's canal aiming for the fourth digit with the hand in extension.? I used a synovial elevator to identify the transverse fibers of the transverse carpal tunnel ligament.? Passed the scope into the carpal tunnel. Once I had identified the full proximal and distal extent of the ligament I fully released the ligament under direct visualization by deploying the blade and slowly withdrawing the scope made sequential passes until I no longer felt tension as well as the entire extent of the ligament was released under direct visualization.?Some calcification of the ligament was present. Sounded the tunnel with jose tenotomy scissors, complete release, no bands. Arthroscope light was more visible through the skin. Pictures taken and saved. Wound thoroughly irrigated.? Tourniquet let down prior to end of the case and meticulous hemostasis achieved.? Thorough irrigation.? ? Incisions closed with 2-0vicryl, ectr only with 3-0 Monocryl for the skin at both sites.? Steri-Strips were applied after the skin was cleaned and dried. Adaptic, gauze, loose wrapped Miles. Patient woken up,? transferred off the operating room table and taken to postanesthetic care unit in stable condition. All sponge needle instrument counts were correct no complications.? Plan for the patient to be discharged home according to day surgery criteria when they are comfortable. Follow-up in the office in 2 days time. Gentle ROM hand and elbow no heavy lifting.
--- NOTE | 2022-06-21 13:28 | DCINST_ITS ---
Discharge Instructions Diet Discharge Diet: No restrictions Activity Ice area for (Minutes): 10 Lifting Restrictions: ROM as tolerated fingers wrist and elbow. no heavy lifting. Keep extremity elevated above heart level: Operative Extremity Dressing / Incision Call your doctor if your incision/area has: Continuous Slow Oozing, Sudden Increased Bleeding, Increased Pain/ Swelling, Increased Redness, Foul Smelling Discharge and Swelling at the incision site Change Dressing in: leave in place till F/U Follow Up Care Please Follow Up With: Chicho Pearl MD When: 2 days Test Results: Test results from this visit will be discussed in further detail at your follow- up appointment, if applicable. Discharge Plan Admission Attending Provider: Chicho Pearl Primary Care Provider: Aron Moya Instructions Patient Instructions: Carpal Tunnel Release Surgery Discharge Orders/Prescriptions Prescriptions: New oxycodone-acetaminophen [Endocet] 5-325 mg tablet 1 tab PO Q6H MDD 6 PRN (Reason: pain) 4 Days Qty: 14 0RF No Action pantoprazole 40 mg tablet,delayed release (DR/EC) 40 mg PO DAILY Qty: 30 2RF ursodiol 300 mg capsule 300 mg PO QHS Qty: 60 11RF ipratropium-albuterol 0.5 mg-3 mg(2.5 mg base)/3 mL Solution For Nebulization 3 ml inhalation PRN PRN (Reason: Wheezing) ferrous sulfate 325 mg (65 mg iron) Tablet 325 mg PO DAILY vitamin E 400 unit Capsule 400 unit PO DAILY albuterol sulfate 90 mcg/actuation HFA aerosol inhaler 1 - 2 puff INHALATION PRN PRN (Reason: ASTHMA) Spiriva Respimat 2.5 mcg/actuation mist 2 puff INHALATION DAILY nadolol 20 mg tablet 20 mg PO BID Referrals / Follow Up: Aron Moya MD [Primary Care Provider] - Chicho Pearl MD [Med Staff - Active Staff] - Disposition Disposition (needs filled in before D/C Order can be placed): Home, Self Care
[2022-06-21] MEDS: HYDROcodone Bitartrate/Apap 5/325 Tablet PO (14:30)
== END 2022-06-21 14:47 | disposition home or self-care (01) ==
LOC: SDC 09:38 → AC 09:39
PROVIDERS: PCP Family Medicine; Referring Provider Orthopaedic Surgery Sports Medicine; Visit Provider Orthopaedic Surgery Sports Medicine
PROC: (CPT 64718; principal; 2022-06-21 11:00)
DX: G56.21 Lesion of ulnar nerve, right upper limb (principal); G56.01 Carpal tunnel syndrome, right upper limb; M19.021 Primary osteoarthritis, right elbow; J44.9 Chronic obstructive pulmonary disease, unspecified; D64.9 Anemia, unspecified; F17.210 Nicotine dependence, cigarettes, uncomplicated
CPT/HCPCS: 64718; 29848; 01710; J7120; J2405

== ENCOUNTER 2022-08-15 13:44 | Inpatient (IN) | payer MEDICAID, SELFPAY ==
[2022-08-15] VITALS (8 sets, daily range): BP systolic 122–178; BP diastolic 62–91; PULSE 56–109; RESP 12–18; TEMP 35.7–36.8; O2SAT 95–97; BMI 26.7; BMI 26.5
--- NOTE | 2022-08-15 14:17 | EDS_ITS ---
HPI HPI - GI History of Present Illness Chief Complaint: GI Bleed Narrative Narrative: 52-year-old male with history of cirrhosis, gastric varices, esophageal varices, portal hypertension, blood loss anemia, hemorrhoids. He is presenting today because he vomited blood this morning x1. He states that when he takes his ursodiol it makes him nauseous. On 02/21/[address] Tenorio and had his ursodiol decreased to only 3 mg daily instead of twice daily. This was to help his nausea. His Protonix was reduced as well to 40 mg p.o. daily. This did help. Patient experienced some nausea earlier today and started dry heaving and then had 1 episode of the bloody vomit. She does not feel nauseous currently. He is not lightheaded, dizzy, weak, short of breath. [facility] Medical History ADHD Alcohol use Anemia Arthritis Asthma Back pain Chronic cough Cirrhosis Colitis COPD (chronic obstructive pulmonary disease) Cubital tunnel syndrome on right Easy bruising Esophageal varices Gastric varices GERD (gastroesophageal reflux disease) Hiatal hernia History of echocardiogram History of GI bleed History of GI bleed History of hiatal hernia History of stress test History of ulceration Hx of fracture of ankle Hx of ulcerative colitis Injury of back Internal impingement of right shoulder Irritable bowel Leg cramps Low iron Portal hypertension Primary osteoarthritis, right elbow Restless legs Right carpal tunnel syndrome Right elbow pain Right shoulder pain Shortness of breath on exertion Smoker Tear of right biceps muscle Thrombocytopenia Wears dentures Wears glasses Home Medications ipratropium 0.5 mg-albuterol 3 mg (2.5 mg base)/3 mL nebulization soln 3 ml in halation PRN PRN Wheezing 02/20/21 [History Last Taken Unknown] ferrous sulfate 325 mg (65 mg iron) tablet 325 mg PO DAILY Check with primary doctor 09/30/21 [History Last Taken 08/14/22] vitamin E 268 mg (400 unit) capsule 400 unit PO DAILY Check with primary doctor 09/30/21 [History Last Taken 08/14/22] albuterol sulfate 90 mcg/actuation aerosol inhaler 1 - 2 puff inhalation PRN PRN ASTHMA 06/14/22 [History Last Taken Unknown] nadolol 20 mg tablet 20 mg PO BID Check with primary doctor 06/14/22 [History Last Taken 08/15/22] tiotropium bromide 2.5 mcg/actuation mist for inhalation (Spiriva Respimat) 2 puff inhalation DAILY Check with primary doctor 06/14/22 [History Last Taken 08/15/22] pantoprazole 40 mg tablet,delayed release 40 mg PO DAILY Check with primary doctor 08/15/22 [History Last Taken 08/15/22] ursodiol 300 mg capsule 300 mg PO QHS Check with primary doctor 08/15/22 [History Last Taken 08/15/22] Allergy/AdvReac Type Severity Reaction Status Date / Time No Known Allergies Allergy Verified 08/15/22 13:47 Family History Other Cancer Diabetes Heart disease Surgical History History of esophagogastroduodenoscopy (EGD) History of esophagogastroduodenoscopy (EGD) History of foot surgery Hx of colonoscopy Hx of elbow surgery Hx of repair of right rotator cuff Social History Smoking Status: Current every day smoker tobacco type: cigarettes ROS ROS ED Review of Systems ROS Unobtainable: Denies due to encephalopathy Constitutional Constitutional ED: Denies chills, fever(s) or subjective ENT ENT ED: Denies rhinorrhea or sore throat Cardiovascular Cardiovascular: Denies chest pain or palpitations Respiratory/Chest Respiratory/Chest: Denies cough, dyspnea or dyspnea on exertion Gastrointestinal Gastrointestinal: Reports abdominal pain and nausea Genitourinary Genitourinary ED: Denies dysuria or hematuria Musculoskeletal Musculoskeletal: Denies arthralgias or back pain Integumentary Denies abscess Neurologic Neurologic: Denies headache(s) or paresthesias EXAM Physical Exam Const Vital Signs: 08/15/22 13:46 08/15/22 14:13 08/15/22 15:30 Temperature 96.2 F L Temperature Source Temporal Pulse Rate 65 109 H Pulse Rate [Lying] 61 Pulse Rate [Sitting (for 1 minute prior to obtaining)] 67 Pulse Rate [Standing (for 1 minute prior to obtaining)] 66 Respiratory Rate 18 12 Blood Pressure 178/89 H 150/71 H Blood Pressure [Lying] 138/77 H Blood Pressure [Sitting (for 1 minute prior to obtaining)] 175/91 H Blood Pressure [Standing (for 1 minute prior to obtaining)] 139/83 H Blood Pressure Mean 118 97 Blood Pressure Mean [Lying] 97 Blood Pressure Mean [Sitting (for 1 minute prior to obtaining)] 119 Blood Pressure Mean [Standing (for 1 minute prior to obtaining)] 101 Pulse Ox 96 Oxygen Delivery Method Room Air 08/15/22 17:00 Temperature Temperature Source Pulse Rate 60 Pulse Rate [Lying] Pulse Rate [Sitting (for 1 minute prior to obtaining)] Pulse Rate [Standing (for 1 minute prior to obtaining)] Respiratory Rate 18 Blood Pressure 122/62 H Blood Pressure [Lying] Blood Pressure [Sitting (for 1 minute prior to obtaining)] Blood Pressure [Standing (for 1 minute prior to obtaining)] Blood Pressure Mean 82 Blood Pressure Mean [Lying] Blood Pressure Mean [Sitting (for 1 minute prior to obtaining)] Blood Pressure Mean [Standing (for 1 minute prior to obtaining)] Pulse Ox Oxygen Delivery Method MDM MDM MDM Narrative Medical decision making narrative: Patient presenting with an episode of hematemesis. He has a history of gastric varices, esophageal varices, portal hypertension, cirrhosis. Patient only had 1 episode of this although he he does have risk factors for worsening bleeding. He does have some mild epigastric pain. Differential includes but is not limited to GERD, gastritis, peptic ulcer disease, acute cholecystitis, acute cholelithiasis, diverticulitis, small bowel obstruction, esophageal varices, pancreatitis. Type and screen was ordered. CBC to assess white blood cell count, hemoglobin, platelets, differential. PT/INR obtained to assess for coagulopathy. CMP to assess liver function, renal function, glucose, anion gap, electrolytes. Ammonia level will be assessed due to patient's history of hepatic encephalopathy. Lipase to assess for pancreatitis. CBC shows no leukocytosis with a white blood cell count of 5.7. Hemoglobin stable 14. P pl atelets low at 82. INR is normal. Renal function electrolytes unremarkable. Glucose 142. No anion gap. Total bilirubin 1.4, direct bilirubin 0.72, AST 125, ALT 52, alkaline phosphatase 169. His LFTs are higher than usual. CRP and sed rate are mildly elevated. Ammonia level 52 which is near his baseline. He does not have any confusion. I ordered a CT of the chest abdomen pelvis and included the neck. There is evidence of fatty liver and possible focal area of pancreatitis although the patient's lipase is unremarkable. I did order an ultrasound of the right upper quadrant which was negative. Patient was discussed with Dr. Tenorio who recommended octreotide drip, Protonix drip, 1 g of Rocephin. He recommended admission for endoscopy. Patient discussed with the hospitalist and admitted in stable condition. Impression: 1. Upper GI bleed 2. Nausea/vomiting 3. Abdominal pain Lab Data Attestation: I reviewed the patient's lab results. Labs: Laboratory Results - last 24 hr 08/15/22 08/15/22 08/15/22 14:27 14:27 14:27 WBC 5.7 RBC 4.43 L Hgb 14.0 Hct 43.1 MCV 97.3 H MCH 31.6 MCHC 32.5 RDW Std Deviation 57.7 H RDW Coeff of Jumana 15.9 H Plt Count 82 L MPV 12.1 H Immature Gran % (Auto) 0.400 Neut % (Auto) 61.1 Lymph % (Auto) 19.5 Winkler % (Auto) 14.4 H Eos % (Auto) 3.7 Baso % (Auto) 0.9 Absolute Neuts (auto) 3.5 Absolute Lymphs (auto) 1.11 Nucleated RBC % 0 ESR PT 13.8 INR 1.1 Sodium 140 Potassium 4.3 Chloride 109 H Carbon Dioxide 25.0 Anion Gap 6 BUN 7 Creatinine 0.74 Estim Creat Clear Calc 115.44 Est GFR (MDRD) Af Amer 141 Est GFR (MDRD) Non-Af 117 BUN/Creatinine Ratio 9.4 L Glucose 142 H Calcium 9.4 Total Bilirubin 1.40 H Direct Bilirubin 0.72 H AST 125 H ALT 52 Alkaline Phosphatase 169 H Ammonia C-React Prot Ext Range Total Protein 7.7 Albumin 3.4 Globulin 4.3 H Lipase Blood Type Antibody Screen 08/15/22 08/15/22 08/15/22 14:27 14:27 14:27 WBC RBC Hgb Hct MCV MCH MCHC RDW Std Deviation RDW Coeff of Jumana Plt Count MPV Immature Gran % (Auto) Neut % (Auto) Lymph % (Auto) Winkler % (Auto) Eos % (Auto) Baso % (Auto) Absolute Neuts (auto) Absolute Lymphs (auto) Nucleated RBC % ESR PT INR Sodium Potassium Chloride Carbon Dioxide Anion Gap BUN Creatinine Estim Creat Clear Calc Est GFR (MDRD) Af Amer Est GFR (MDRD) Non-Af BUN/Creatinine Ratio Glucose Calcium Total Bilirubin Direct Bilirubin AST ALT Alkaline Phosphatase Ammonia 52.0 H C-React Prot Ext Range Total Protein Albumin Globulin Lipase 87 H Blood Type A POSITIVE Antibody Screen NEGATIVE 08/15/22 08/15/22 14:27 14:27 WBC RBC Hgb Hct MCV MCH MCHC RDW Std Deviation RDW Coeff of Jumana Plt Count MPV Immature Gran % (Auto) Neut % (Auto) Lymph % (Auto) Winkler % (Auto) Eos % (Auto) Baso % (Auto) Absolute Neuts (auto) Absolute Lymphs (auto) Nucleated RBC % ESR 57 H PT INR Sodium Potassium Chloride Carbon Dioxide Anion Gap BUN Creatinine Estim Creat Clear Calc Est GFR (MDRD) Af Amer Est GFR (MDRD) Non-Af BUN/Creatinine Ratio Glucose Calcium Total Bilirubin Direct Bilirubin AST ALT Alkaline Phosphatase Ammonia C-React Prot Ext Range 5.39 H Total Protein Albumin Globulin Lipase Blood Type Antibody Screen Radiography Diagnostic Testing: Clinical Impression(s) from Imaging Studies Chest/Abdomen/Pelvis CT 08/15/22 14:32 IMPRESSION: Small amount of perihepatic fluid. Nonspecific increased markings in the fat of the root of the mesentery. Findings suggestive of localized acute pancreatitis in the region of the head of the pancreas. Electronically Signed: Donato Akhtar MD at 15:33 EDT , Soft Tissue Neck CT 08/15/22 14:32 IMPRESSION: No acute abnormality is seen. Electronically Signed: Donato Akhtar MD at 15:23 EDT , Gallbladder Ultrasound 08/15/22 15:59 IMPRESSION: Fatty liver. Note: Renal size measurements and size measurements of other organs etc may vary depending on modality and continuous mining operator dependent variations in measurements. (i.e. Measuring a kidney on an US does not correlate with an exact same measurement on a CT.) Electronically Signed: Carlyle Mckinney MD at 18:18 EDT , Discharge Plan Disposition Disposition: Acute Care Hospital [facility] Discharge Date/Time: 08/15/22 19:27
--- NOTE | 2022-08-15 14:32 | CT_ITS ---
STUDY: CT SOFT TISSUE NECK WITH CONTRAST REASON FOR EXAM: Male, 52 years old. GI bleed. Hematemesis. History of gastric and esophageal varices. RADIATION DOSAGE (If Supplied By Facility): CTDIvol = ( 18.57 ) mGy, DLP = ( 691.32 ) mGycm TECHNIQUE: The patient was scanned in a multi-detector CT scanner. High resolution transaxial imaging was performed following intravenous administration of IV 100mL Isovue-300. Sagittal and coronal images were reconstructed. Individualized dose optimization techniques were used for this CT. COMPARISON: None. FINDINGS: Normal bilateral parotid glands. Normal bilateral charter boat captain spaces. Normal bilateral parapharyngeal spaces. Normal bilateral carotid spaces. Normal bilateral sublingual and submandibular glands and spaces. Normal visualized nasopharynx. Normal retropharyngeal space. Normal perivertebral space. Normal visualized bilateral faucial tonsils. The visualized tongue, tongue base and oropharynx are normal. The visualized cervical lymph nodes (levels I-) are within normal size limits, and maintain normal morphology. There is no demonstrated solid or cystic mass lesion. There is no abnormal contrast enhancement. Normal epiglottis, bilateral vallecula and hypopharynx. The pre-epiglottic and paraglottic adipose spaces are normal. Normal visualized bilateral piriform sinuses, aryepiglottic folds, vocal cords, and arytenoid-cricoid articulations. Normal subglottic trachea. Normal bilateral lobes of the thyroid gland. Normal visualized pulmonary apices. Normal visualized paranasal sinuses. There is multilevel degenerative changes of the cervical spine. CT/Soft Tissue Neck WITH Contrast IMPRESSION: No acute abnormality is seen. Electronically Signed: Donato Akhtar MD at 15:23 EDT ,
--- NOTE | 2022-08-15 14:32 | CT_ITS ---
STUDY: CT CHEST, ABDOMEN T PELVIS WITH CONTRAST REASON FOR EXAM: Male, 52 years old. Gi bleed. History of esophageal and gastric varices. RADIATION DOSAGE (If Supplied By Facility): CTDIvol = ( 17.43 ) mGy, DLP = ( 1505.11 ) mGycm TECHNIQUE: Transaxial imaging was performed following intravenous administration of IV 100mL Isovue-300. Individualized dose optimization techniques were used for this CT. COMPARISON: Comparison is made with prior study dated July 11, 2017. FINDINGS: CHEST Hyperinflation. Mild emphysematous changes. No focal infiltration is seen. There is no demonstrated pleural abnormality. There are calcifications of the coronary arteries. There are multiple small lymph nodes within the mediastinum, which are normal in size and morphology most compatible with reactive lymph hyperplasia. Normal hilar regions. Normal unenhanced pulmonary arteries. Normal aorta arch and descending thoracic aorta. There are mild degenerative changes of the thoracic spine. ABDOMEN There is decreased attenuation of the liver consistent with steatosis. Mild hepatomegaly minimal amount of perihepatic fluid is seen superiorly along the right lobe of the liver.. Normal gallbladder and extrahepatic biliary system. There is moderate splenomegaly. Varices are seen in the region of the splenic hilum. Findings suggestive of a localized acute pancreatitis in the region of the head of the pancreas. Increase nonspecific markings are seen in the root of the mesenteric fat. This may represent edematous changes. No focal abscess or fluid collection is seen. Normal bilateral adrenal glands. Normal right kidney. Normal left kidney. Normal visualized stomach. Normal small intestine. There are multiple colonic diverticula consistent with diverticulosis. The appendix is visualized and appears normal. There is diffuse atherosclerotic calcification of the abdominal aorta, without a demonstrated aneurysm. Normal inferior vena cava. Normal retroperitoneum. Normal abdominal wall. Normal osseous structures. PELVIS Normal urinary bladder. Normal visualized small intestine. Normal visualized colon. There is no pelvic fluid. There is no pelvic lymphadenopathy or mass lesion. Normal visualized pelvic arteries. Normal abdominal wall. Normal osseous structures. CT/CT Chest, Abd, Pel w/Contrast IMPRESSION: Small amount of perihepatic fluid. Nonspecific increased markings in the fat of the root of the mesentery. Findings suggestive of localized acute pancreatitis in the region of the head of the pancreas. Electronically Signed: Donato Akhtar MD at 15:33 EDT ,
[2022-08-15 14:44] LABS: Absolute Lymphocyte Count 1.11 X10^3/uL (0.83-4.51); Absolute Neutrophil Count 3.5 X10^3/uL (2.0-7.7); Basophil# 0.05 X10^3/uL; Basophil% 0.9 % (0-1); Eosinophil# 0.21 X10^3/uL; Eosinophils% 3.7 % (0-5); Hematocrit 43.1 % (40-54); Lymphocyte # 1.11 X10^3/ul (0.83-4.51); Lymphocyte % 19.5 % (19-41); Mean Corp Hgb Conc 32.5 g/dL (32-36); Mean Corpuscular Hgb 31.6 pg (27.0-32.0); Mean Corpuscular Volume 97.3 fL (80-94); Mean Platelet Vol. 12.1 fl (6.2-12.0); Monocyte# 0.82 X10^3/uL; Monocyte% 14.4 % (0-10); NRBC Flagged by Analyzer 0 % (0-5); Neutrophil # 3.48 X10^3/uL (2.7-7.7); Neutrophil % 61.1 % (47-70); POSITIVE COUNT YES; Platelet Count 82 K/mm3 (150-450); RBC Distribution Width CV 15.9 % (11.6-14.6); RBC Distribution Width SD 57.7 fl (35.1-43.9); Red Blood Count 4.43 M/mm3 (4.6-6.2); White Blood Count 5.7 K/mm3 (4.4-11.0)
[2022-08-15 14:45] LABS: International Normalized Ratio 1.1; Prothrombin Time (Protime)PT. 13.8 SECONDS (11.7-14.9)
[2022-08-15] MEDS: Ondansetron 4 MG/2 ML Vial IV (14:46)
[2022-08-15 14:53] LABS: AST(SGOT) 125 U/L (15-37); Alanine Aminotransfer ALT/SGPT 52 U/L (16-61); Albumin, Serum 3.4 g/dL (3.2-5.0); Alkaline Phosphatase 169 U/L (45-117); Anion Gap 6 (5-15); BUN 7 mg/dL (7-18); BUN/Creat Ratio 9.4 RATIO (10-20); Bilirubin, Direct 0.72 mg/dL (0.00-0.30); Calcium,Total 9.4 mg/dL (8.5-10.1); Chloride 109 mmol/L (98-107); Creatinine, Serum 0.74 mg/dL (0.70-1.30); EST Glomerular Filtration Rate 117 mL/min (>60); Est Glom Filt Rate - Afr Amer 141 mL/min (>60); Estimated Creatinine Clearance 115.44 ml/min; Globulin 4.3 g/dL (2.2-4.2); Glucose 142 mg/dL (74-106); Potassium 4.3 mmol/L (3.5-5.1); Protein, Total 7.7 g/dL (6.4-8.2); Sodium Level 140 mmol/L (136-145)
[2022-08-15 15:13] LABS: Lipase 87 U/L (13-75)
[2022-08-15] MEDS: Ceftriaxone 1 GM/50 ML BAG IV (15:16)
--- NOTE | 2022-08-15 15:59 | US_ITS ---
STUDY: ABDOMINAL ULTRASOUND - RIGHT UPPER QUADRANT REASON FOR VISIT: Male, 52 years old. ABDOMEN PAIN ruq pain TECHNIQUE: Ultrasound evaluation of the right upper quadrant was performed with real-time and static jeffers-scale imaging. TECHNICAL QUALITY: Adequate. COMPARISON: ct 5.9.23 FINDINGS: Liver: There is increased echogenicity consistent with fatty infiltration. The bile ducts are within normal limits. There is hepatic color flow. The direction of portal flow is hepatopetal. There is no demonstrated mass lesion. Gallbladder: Normal distended gallbladder. The gallbladder wall measures 2.4 mm. There is a negative sonographic Donovan''s sign. There is no pericholecystic fluid. There are no gallstones. Common Bile Duct (C.B.D.): The common bile duct measures ( in mm): 4.3 Pancreas: It is not visualized. There is too much overlying bowel gas. Right Kidney: Normal size of the right kidney. The right kidney measures 10.4 cm. . Normal renal cortex. There is no demonstrated renal mass or cyst. There is no right hydronephrosis. Aorta: It is not visualized. There is too much overlying bowel gas. . US/Gallbladder IMPRESSION: Fatty liver. Note: Renal size measurements and size measurements of other organs etc may vary depending on modality and preform machine operator dependent variations in measurements. (i.e. Measuring a kidney on an US does not correlate with an exact same measurement on a CT.) Electronically Signed: Carlyle Mckinney MD at 18:18 EDT ,
[2022-08-15] MEDS: Morphine 4 MG/ML Syringe IV (16:05)
[2022-08-15 17:31] LABS: Erythrocyte Sedimentation Rate 57 mm/hr (0-20)
[2022-08-15 17:35] LABS: CRP 5.39 mg/L (0.0-3.0)
--- NOTE | 2022-08-15 18:44 | HP.PCM.HOS_ITS ---
HPI - General General Date of Admission: 08/15/22 HPI Narrative LUH RAMOS, is a 52 M who presents to the hospital with hematemesis. He states that it started today at around noon and he was told by his scooter mechanic that if ever coughed up blood that he is come to the hospital for evaluation. He has been stable over the last 2 years, he had been admitted in February 2021 with an upper GI bleed secondary to varices from cirrhosis due to drinking. He says that he is quit drinking since that time and he had an interval endoscopy about a year ago which showed significant improvement in his varices. Today he states that he has been dry heaving over the last several days secondary to medications and today vomited dark red blood. He does have hemorrhoids and has noticed bright red blood in his stool but his biggest concern was his hematemesis. Hemoglobin is 14 today and his vital signs are stable, the case was discussed with his scooter mechanic who felt that given his history it would be prudent to bring him into the hospital for endoscopy. COUNT INCLUDES THE [facility] Medical History ADHD Alcohol use Anemia Arthritis Asthma Back pain Chronic cough Cirrhosis Colitis COPD (chronic obstructive pulmonary disease) Cubital tunnel syndrome on right Easy bruising Esophageal varices Gastric varices GERD (gastroesophageal reflux disease) Hiatal hernia History of echocardiogram History of GI bleed History of GI bleed History of hiatal hernia History of stress test History of ulceration Hx of fracture of ankle Hx of ulcerative colitis Injury of back Internal impingement of right shoulder Irritable bowel Leg cramps Low iron Portal hypertension Primary osteoarthritis, right elbow Restless legs Right carpal tunnel syndrome Right elbow pain Right shoulder pain Shortness of breath on exertion Smoker Tear of right biceps muscle Thrombocytopenia Wears dentures Wears glasses Home Medications ipratropium 0.5 mg-albuterol 3 mg (2.5 mg base)/3 mL nebulization soln 3 ml inhalation PRN PRN Wheezing 02/20/21 [History Last Taken Unknown] ferrous sulfate 325 mg (65 mg iron) tablet 325 mg PO DAILY 09/30/21 [History Last Taken Unknown] vitamin E 268 mg (400 unit) capsule 400 unit PO DAILY 09/30/21 [History Last Taken Unknown] pantoprazole 40 mg tablet,delayed release 40 mg PO DAILY #30 tabs 11/15/22 [Rx Last Taken 06/21/22 07:30] ursodiol 300 mg capsule 300 mg PO QHS #60 caps 02/21/22 [Rx Last Taken Unknown] albuterol sulfate 90 mcg/actuation aerosol inhaler 1 - 2 puff inhalation PRN PRN ASTHMA 06/14/22 [History Last Taken Unknown] nadolol 20 mg tablet 20 mg PO BID 06/14/22 [History Last Taken 06/21/22 07:30] tiotropium bromide 2.5 mcg/actuation mist for inhalation (Spiriva Respimat) 2 puff inhalation DAILY 06/14/22 [History Last Taken Unknown] Allergy/AdvReac Type Severity Reaction Status Date / Time No Known Allergies Allergy Verified 08/15/22 13:47 Family History Other Cancer Diabetes Heart disease Surgical History History of esophagogastroduodenoscopy (EGD) History of esophagogastroduodenoscopy (EGD) History of foot surgery Hx of colonoscopy Hx of elbow surgery Hx of repair of right rotator cuff Social History Smoking Status: Current every day smoker tobacco type: cigarettes ROS Constitutional Constitutional: Reports chills and fatigue; Denies fever(s) or malaise Eyes Eyes: Denies blurry vision ENT HEENT: Denies headache(s) or nasal discharge Cardiovascular Cardiovascular: Denies chest pain, dyspnea on exertion or syncope Respiratory/Chest Respiratory/Chest: Denies cough, shortness of breath at rest or shortness of breath with exertion Gastrointestinal Gastrointestinal: Reports abdominal pain and hematemesis; Denies constipation, diarrhea, nausea or vomiting Genitourinary Genitourinary: Denies dysuria Neurologic Neurologic: Denies focal weakness, numbness or tremor(s) Psychiatric Psychiatric: Denies anxiety or depression Vital Signs Vital Signs Vital Signs: 08/15/22 13:46 08/15/22 14:13 08/15/22 15:30 Temperature 96.2 F L Temperature Source Temporal Pulse Rate 65 109 H Pulse Rate [Lying] 61 Pulse Rate [Sitting (for 1 minute prior to obtaining)] 67 Pulse Rate [Standing (for 1 minute prior to obtaining)] 66 Respiratory Rate 18 12 Blood Pressure 178/89 H 150/71 H Blood Pressure [Lying] 138/77 H Blood Pressure [Sitting (for 1 minute prior to obtaining)] 175/91 H Blood Pressure [Standing (for 1 minute prior to obtaining)] 139/83 H Blood Pressure Mean 118 97 Blood Pressure Mean [Lying] 97 Blood Pressure Mean [Sitting (for 1 minute prior to obtaining)] 119 Blood Pressure Mean [Standing (for 1 minute prior to obtaining)] 101 Pulse Ox 96 Oxygen Delivery Method Room Air 08/15/22 17:00 Temperature Temperature Source Pulse Rate 60 Pulse Rate [Lying] Pulse Rate [Sitting (for 1 minute prior to obtaining)] Pulse Rate [Standing (for 1 minute prior to obtaining)] Respiratory Rate 18 Blood Pressure 122/62 H Blood Pressure [Lying] Blood Pressure [Sitting (for 1 minute prior to obtaining)] Blood Pressure [Standing (for 1 minute prior to obtaining)] Blood Pressure Mean 82 Blood Pressure Mean [Lying] Blood Pressure Mean [Sitting (for 1 minute prior to obtaining)] Blood Pressure Mean [Standing (for 1 minute prior to obtaining)] Pulse Ox Oxygen Delivery Method Weight Weight: 181 lb Body Mass Index (BMI) 26.7 Physical Exam Narrative General: Alert, Oriented x3, Cooperative, No apparent distress HEENT: Atraumatic, PERRLA, EOMI, Normocephalic Oral: Moist Mucosa Neck: Supple, No JVD Lungs: Clear to auscultation, Normal air movement, No rhonchi, No wheeze, No rales Cardiovascular: Regular rate, Regular Rhythm, Normal S1, Normal S2, No murmurs Abdomen: Soft, mild tender epigastric, Non-Distended, No Hepato-splenomegaly Extremities: No edema, Capillary Refill Less than 3 Seconds Skin: No rashes, No breakdown Musculoskeletal: No Tenderness to Palpation of Joints or Extremities Neurological: Cranial nerves II-XII grossly intact, Motor Exam 5/5 strength throughout, Sensory exam intact to light touch and pain Psych/Mental Status: Normal Affect, Appropriate Results Lab / Micro Data Result Diagrams: 08/15/22 14:27 08/15/22 14:27 Labs: Laboratory Results - last 24 hr 08/15/22 14:27: WBC 5.7, RBC 4.43 L, Hgb 14.0, Hct 43.1, MCV 97.3 H, MCH 31.6, MCHC 32.5, RDW Std Deviation 57.7 H, RDW Coeff of Jumana 15.9 H, Plt Count 82 L, MPV 12.1 H, Immature Gran % (Auto) 0.400, Neut % (Auto) 61.1, Lymph % (Auto) 19.5, [place] % (Auto) 14.4 H, Eos % (Auto) 3.7, Baso % (Auto) 0.9, Absolute Neuts (auto) 3.5, Absolute Lymphs (auto) 1.11, Nucleated RBC % 0 08/15/22 14:27: PT 13.8, INR 1.1 08/15/22 14:27: Sodium 140, Potassium 4.3, Chloride 109 H, Carbon Dioxide 25.0, Anion Gap 6, BUN 7, Creatinine 0.74, Estim Creat Clear Calc 115.44, Est GFR (MDRD) Af Amer 141, Est GFR (MDRD) Non-Af 117, BUN/Creatinine Ratio 9.4 L, Glucose 142 H, Calcium 9.4, Total Bilirubin 1.40 H, Direct Bilirubin 0.72 H, AST 125 H, ALT 52, Alkaline Phosphatase 169 H, Total Protein 7.7, Albumin 3.4, Globulin 4.3 H 08/15/22 14:27: Blood Type A POSITIVE, Antibody Screen NEGATIVE 08/15/22 14:27: Ammonia 52.0 H 08/15/22 14:27: Lipase 87 H 08/15/22 14:27: ESR 57 H 08/15/22 14:27: C-React Prot Ext Range 5.39 H Radiology Impression Chest/Abdomen/Pelvis CT 08/15/22 14:32 IMPRESSION: Small amount of perihepatic fluid. Nonspecific increased markings in the fat of the root of the mesentery. Findings suggestive of localized acute pancreatitis in the region of the head of the pancreas. Electronically Signed: Donato Akhtar MD at 15:33 EDT , Soft Tissue Neck CT 08/15/22 14:32 IMPRESSION: No acute abnormality is seen. Electronically Signed: Donato Akhtar MD at 15:23 EDT , Gallbladder Ultrasound 08/15/22 15:59 IMPRESSION: Fatty liver. Note: Renal size measurements and size measurements of other organs etc may vary depending on modality and mine utility operator dependent variations in measurements. (i.e. Measuring a kidney on an US does not correlate with an exact same measurement on a CT.) Electronically Signed: Carlyle Mckinney MD at 18:18 EDT , Assessment & Plan Assessment/Plan (1) Hematemesis: PLAN: Plan 1. Upper GI bleed likely from variceal bleeding due to cirrhosis from alcoholism/chronic thrombocytopenia ? His initial GI bleed was in February 2021 where he was found to have portal hypertension with esophageal varices extending into the stomach. Some of these had to be banded to complete treatment. He has been on Protonix since that time ? He may has quit drinking but his platelets have stayed below 150,000 ? We will continue with an octreotide drip as well as Protonix drip and Rocephin given the history of some ascites ? He had repeat esophageal varices banded in April 2021 ?Plan for repeat EGD given the continued presence of grade 2 esophageal varices ? MELD scores of consistently been around 7 ? We will continue with iron replacement ? Given that the lipase is normal I am not concerned for pancreatitis despite imaging findings ? We will recheck an H&H in 6 hours and then repeat in the morning ? Continue with nadolol and ursodiol 2. Small airway disease possible early COPD versus mild asthma ? Stable ? Continue with his inhalers DVT: Ambulation 75 minutes was spent on direct patient care as well as chart review and collaboration with colleagues Charges/Coding Visit Charges Inpatient E&M: 03696 Init Hosp L3
[2022-08-15] MEDS: Nadolol 20 MG Tablet PO (21:43)
[2022-08-15] MEDS: Ursodiol 250 MG Tablet PO (21:43)
[2022-08-15] MEDS: Morphine 2 MG/ML Syringe IV (23:14)
[2022-08-15] MEDS: 0.9% Saline Lock 10 ML Syringe IV (23:15)
[2022-08-16] VITALS (9 sets, daily range): BP systolic 112–150; BP diastolic 68–92; PULSE 54–76; RESP 16; TEMP 36.5–36.7; O2SAT 93–99
[2022-08-16 00:38] LABS: Hematocrit 39.3 % (40-54); Hemoglobin 12.8 g/dL (13.0-16.5)
[2022-08-16 05:52] LABS: Absolute Lymphocyte Count 1.42 X10^3/uL (0.83-4.51); Absolute Neutrophil Count 2.3 X10^3/uL (2.0-7.7); Basophil# 0.04 X10^3/uL; Basophil% 0.9 % (0-1); Eosinophil# 0.18 X10^3/uL; Eosinophils% 3.9 % (0-5); Hematocrit 38.6 % (40-54); Hemoglobin 12.9 g/dL (13.0-16.5); Lymphocyte # 1.42 X10^3/ul (0.83-4.51); Lymphocyte % 30.4 % (19-41); Mean Corp Hgb Conc 33.4 g/dL (32-36); Mean Corpuscular Hgb 32.8 pg (27.0-32.0); Mean Corpuscular Volume 98.2 fL (80-94); Monocyte# 0.74 X10^3/uL; Monocyte% 15.8 % (0-10); NRBC Flagged by Analyzer 0 % (0-5); Neutrophil # 2.28 X10^3/uL (2.7-7.7); Neutrophil % 48.8 % (47-70); POSITIVE COUNT YES; Platelet Count 74 K/mm3 (150-450); RBC Distribution Width SD 58.5 fl (35.1-43.9); Red Blood Count 3.93 M/mm3 (4.6-6.2); White Blood Count 4.7 K/mm3 (4.4-11.0)
--- NOTE | 2022-08-16 06:00 | EKG12_ITS ---
Test Reason : PRE-OP Blood Pressure : / mmHG Vent. Rate : 054 BPM Atrial Rate : 054 BPM P-R Int : 182 ms QRS Dur : 088 ms QT Int : 448 ms P-R-T Axes : 038 -14 020 degrees QTc Int : 424 ms Sinus bradycardia Otherwise normal ECG No previous ECGs available Confirmed by AGUSTIN PHELPS, KEYANA ([id number]), photographic editor NETTIE TORRES ([id number]) on 08/17/2022 9:50:30 AM Referred By: TRUDI Confirmed By:ZACARIAS VELEZ MD
[2022-08-16 06:36] LABS: Partial Thromboplast Time 36.8 Seconds (24.1-36.2)
[2022-08-16 06:41] LABS: ALB/GLOB Ratio 0.7 RATIO (0.9-2.4); AST(SGOT) 97 U/L (15-37); Alanine Aminotransfer ALT/SGPT 42 U/L (16-61); Albumin, Serum 2.9 g/dL (3.2-5.0); Alkaline Phosphatase 132 U/L (45-117); Anion Gap 3 (5-15); BUN 10 mg/dL (7-18); BUN/Creat Ratio 12.3 RATIO (10-20); Calcium,Total 8.5 mg/dL (8.5-10.1); Chloride 107 mmol/L (98-107); Creatinine, Serum 0.82 mg/dL (0.70-1.30); EST Glomerular Filtration Rate 105 mL/min (>60); Est Glom Filt Rate - Afr Amer 127 mL/min (>60); Estimated Creatinine Clearance 104.18 ml/min; Globulin 3.9 g/dL (2.2-4.2); Glucose 116 mg/dL (74-106); Potassium 4.3 mmol/L (3.5-5.1); Protein, Total 6.8 g/dL (6.4-8.2); Sodium Level 137 mmol/L (136-145)
[2022-08-16 06:43] LABS: Phosphorus 3.7 mg/dL (2.5-4.9)
[2022-08-16] MEDS: Lactated Ringers 1,000 ML 15 ML IV (10:41)
--- NOTE | 2022-08-16 11:26 | OP.EGD_ITS ---
Patient Name: Kevin Moncada Procedure Date: 08/16/2022 10:22 AM Date of : 1970 Age: 52 Procedure: Upper GI endoscopy Indications: For therapy of esophageal varices with bleeding Providers: Jet Tenorio DO Medicines: Monitored Anesthesia Care Patient Profile: This is a 52 year old male. Refer to note in patient chart for documentation of history and physical. Patient has symptoms of acute vomiting. Complications: No immediate complications. Procedure: Pre-Anesthesia Assessment: - Prior to the procedure, a History and Physical was performed, and patient medications and allergies were reviewed. The patient is competent. The risks and benefits of the procedure and the sedation options and risks were discussed with the patient. All questions were answered and informed consent was obtained. Patient identification and proposed procedure were verified by the physician. Mental Status Examination: normal. Prophylactic Antibiotics: The patient does not require prophylactic antibiotics. Prior Anticoagulants: The patient has taken no previous anticoagulant or antiplatelet agents. After reviewing the risks and benefits, the patient was deemed in satisfactory condition to undergo the procedure. The anesthesia plan was to use monitored anesthesia care (MAC). Immediately prior to administration of medications, the patient was re-assessed for adequacy to receive sedatives. The heart rate, respiratory rate, oxygen saturations, blood pressure, adequacy of pulmonary ventilation, and response to care were monitored throughout the procedure. The physical status of the patient was re-assessed after the procedure. After obtaining informed consent, the endoscope was passed under direct vision. Throughout the procedure, the patient's blood pressure, pulse, and oxygen saturations were monitored continuously. The Endoscope was introduced through the mouth, and advanced to the second part of duodenum. The upper GI endoscopy was accomplished without difficulty. The patient tolerated the procedure well. Scope In: 10:57:53 AM Scope Out: 11:05:54 AM Total Procedure Duration Time 0 hours 8 minutes 1 second Findings: Four columns of oozing grade II varices were found in the lower third of the esophagus, 29 cm from the incisors. They were 5 mm in largest diameter. Stigmata of recent bleeding were evident and red betty signs were present. Scarring from prior treatment was visible. Two bands were successfully placed with incomplete eradication of varices. Bleeding had stopped at the end of the procedure. Moderate portal hypertensive gastropathy was found in the cardia, in the gastric fundus and in the gastric body. No gross lesions were noted in the first portion of the duodenum. Impression: - Bleeding grade II esophageal varices. Incompletely eradicated. Banded. - Portal hypertensive gastropathy. - No gross lesions in the first portion of the duodenum. - No specimens collected. Recommendation: - Return patient to hospital [facility] for ongoing care. - Full liquid diet. - Continue present medications. Procedure Code(s): --- Professional --- 01286, Esophagogastroduodenoscopy, flexible, transoral; with band ligation of esophageal/gastric varices CPT copyright 2017 [employer]. All rights reserved. The codes documented in this report are preliminary and upon creative services manager review may be revised to meet current compliance requirements. Jet Tenorio DO 08/16/2022 11:26:18 AM This report has been signed electronically. Number of Addenda: 0 Note Initiated On: 08/16/2022 10:22 AM
--- NOTE | 2022-08-16 11:26 | OP.CCLET_ITS ---
08/16/2022 Aron Moya [address] [place] [address] Re : Upper GI endoscopy procedure for Kevin Moncada Dear Dr. Moya This procedure was performed on Tuesday, August 16, 2022. My impressions and recommendations are as follows: Impressions : - Bleeding grade II esophageal varices. Incompletely eradicated. Banded. - Portal hypertensive gastropathy. - No gross lesions in the first portion of the duodenum. - No specimens collected. Recommendations : - Return patient to hospital hunt for ongoing care. - Full liquid diet. - Continue present medications. My findings are described in the full procedure note, which is enclosed. If I can be of further assistance, please feel free to contact me at . Sincerely, Jet Tenorio, 08/16/2022 11:26:18 AM This report has been signed electronically.
[2022-08-16] MEDS: Ceftriaxone 1 GM/50 ML BAG IV (12:03)
[2022-08-16] MEDS: Ensure Plus High Protein 120 ML LIQUID PO ×2 (12:38→17:09)
[2022-08-16] MEDS: Ferrous Sulfate 325 MG Tablet PO (12:38)
--- NOTE | 2022-08-16 13:45 | CASEMGMT ---
JJ SILVER Assessment: Face to Face with pt for initial transition planning/care coordination assessment. RN CM introduced self and role at [facility], pt voices understanding and consents to assessment. Pt is A/O x4 and answers all questions appropriately at this time. Pt sitting up in bed with at bedside. Care providers, pharmacy, and demographics verified/updated. Admitting Dx: Upper GIB PCP:[facility] Specialists:Friend, GI; zohaib Pearl Preferred [facility]acy: [facility] Insurance: [employer] Prescription Benefit: yes LNOK: Nia Moncada, Living Arrangements: Pt lives with in a ground level apt with a ramp to enter. Pt reports he is I in ADL's and denies concerns at home. Transportation: Pt drives self and denies concerns with transportation. DME/HHC/SNF: Pt has a cane, walker, w/c and rollator at home but does not use any of these. Pt denies hx of HHC or SNF stays. Pt states no concerns with going home at time of dc. Pt states no further concerns/needs. CM to follow. Advised pt to ask CM if any further question/concerns/needs arise, voices understanding. Pt Goal: Home Plan: Home
--- NOTE | 2022-08-16 16:04 | PCM.PN.HOSP ---
Reason for Visit Reason for Visit: Hematemesis Subjective Subjective Antwan is a 52-year-old white male who presented to the emergency department [facility] on 08/15/2022 with hematemesis. 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 He has a history of cirrhosis and esophageal varices. He been fairly stable for the last 2 years after being admitted in February 2021. He is no longer drinking alcohol. He had an interval endoscopic examination of his esophagus about a year ago that showed significant improvement in his varices. He reported that the medications he has been taking for his liver disease have progressively making him have worsening vomiting and dry heaving. He is taking them with food. On the day of presentation he had been dry heaving over the last several days and on the day of presentation he vomited dark red blood. Hemoglobin was 14 on presentation however repeat after admission earlier this morning dropped to 12.8. The case was discussed prior to admission with his middle or intermediate school principal who indicated he would be available for consult and probable endoscopy. Patient was seen this morning and reiterated the fact that his medications seem to be making him nauseated. I encouraged him to discuss this with Dr. Tenorio as well as myself and I will let Dr. Tenorio know of these issues. He has had no further hematemesis. And we are awaiting endoscopy at the time of my eval. Objective Data Objective Data Vital Signs: Vital Signs Temp Pulse Resp BP Pulse Ox O2 Del Method 98.0 F 76 16 122/72 H 98 Room Air 08/16/22 15:00 08/16/22 15:00 08/16/22 15:00 08/16/22 15:00 08/16/22 15:00 08/16/22 15:00 Oxygen Delivery Method Room Air Weight: 81.6 kg Body Mass Index (BMI) 26.5 Intake & Output: Intake and Output for Last 24 Hours 08/14/22 08/15/22 08/16/22 23:59 23:59 23:59 Intake Total 85 / 85 620.46 / 620.46 Balance 85 / 85 620.46 / 620.46 Lab / Micro Data Result Diagrams: 08/16/22 05:30 08/16/22 05:30 Labs: Laboratory Results - last 24 hr 08/15/22 14:27: ESR 57 H 08/15/22 14:27: C-React Prot Ext Range 5.39 H 08/16/22 00:30: Hgb 12.8 L, Hct 39.3 L 08/16/22 05:30: WBC 4.7, RBC 3.93 L, Hgb 12.9 L, Hct 38.6 L, MCV 98.2 H, MCH 32.8 H, MCHC 33.4, RDW Std Deviation 58.5 H, RDW Coeff of Jumana 16.0 H, Plt Count 74 L, MPV 13.0 H, Immature Gran % (Auto) 0.200, Neut % (Auto) 48.8, Lymph % (Auto) 30.4, [place] % (Auto) 15.8 H, Eos % (Auto) 3.9, Baso % (Auto) 0.9, Absolute Neuts (auto) 2.3, Absolute Lymphs (auto) 1.42, Nucleated RBC % 0 08/16/22 05:30: Sodium 137, Potassium 4.3, Chloride 107, Carbon Dioxide 27.0, Anion Gap 3 L, BUN 10, Creatinine 0.82, Estim Creat Clear Calc 104.18, Est GFR (MDRD) Af Amer 127, Est GFR (MDRD) Non-Af 105, BUN/Creatinine Ratio 12.3, Glucose 116 H, Calcium 8.5, Magnesium 2.0, Total Bilirubin 1.40 H, AST 97 H, ALT 42, Alkaline Phosphatase 132 H, Total Protein 6.8, Albumin 2.9 L, Globulin 3.9, Albumin/Globulin Ratio 0.7 L 08/16/22 05:30: APTT 36.8 H 08/16/22 05:30: Phosphorus 3.7 Radiography Diagnostic Testing: Radiology Impression Gallbladder Ultrasound 08/15/22 15:59 IMPRESSION: Fatty liver. Note: Renal size measurements and size measurements of other organs etc may vary depending on modality and framing mill operator dependent variations in measurements. (i.e. Measuring a kidney on an US does not correlate with an exact same measurement on a CT.) Electronically Signed: Carlyle Mckinney MD at 18:18 EDT Reading Location ID and State: [facility] / [place] , Service support , Physical Exam Const alert, oriented x3, no apparent distress, average body habitus and well nourished Constitutional Narrative: Middle-aged white male sitting up in bed, appears comfortable, at bedside, appears nontoxic HEENT head/scalp atraumatic, moist oral mucous membranes and oropharynx normal HEENT Narrative: Incision is fair, Mallampati is 2, no thrush Head and Scalp: normocephalic Eyes Eyes Narrative: No scleral icterus Resp normal respiratory effort, no retractions, no use of accessory muscles and clear to auscultation bilaterally Auscultation: Negative for rales, rhonchi or wheezes Cardio regular rate, regular rhythm, S1 normal heart sound, S2 normal heart sound, no murmurs, no rub, no gallops and no clicks GI normal to inspection, nondistended, normoactive bowel sounds and soft to palpation GI Narrative: No noted fluid wave, mild tenderness with palpation to the upper abdomen more superficially patient states he thinks it is related to his dry heaving Extremity no clubbing, cyanosis or edema Extremity Narrative: 2+ pedal pulses Neuro oriented x3, moves all extremities and no focal motor deficits Speech: speech normal Psych affect normal Psych Narrative: Pleasant, appropriate Assessment & Plan Assessment/Plan (1) Hematemesis: (2) Erica-Johns tear: (3) Esophageal varices: PLAN: Plan Hematemesis secondary to grade 2 esophageal varices and Erica-Johns tear -EGD done today 08/16/2022 that showed 4 columns of oozing grade 2 varices in the lower third of the esophagus, 5 mm at largest diameter with stigmata of recent bleeding-2 bands were successfully placed with incomplete eradication of varices but bleeding had stopped by the end of the procedures, patient also had moderate portal hypertensive gastropathy in the gastric cardia fundus and gastric body -Continue octreotide drip and Protonix drip for another 24 hours -Full liquid diet -Repeat CBC in a.m.--> bleeding is seem to stop on serial CBC done prior to scope -Repeat CBC in a.m. -Continue nadolol Nausea and vomiting/dry heaving -Seems to be related to medication tolerance -Discussed with Dr. Tenorio from gastroenterology and he will address any medication changes that can be made Liver cirrhosis -MELD scores have been consistently around 7 -Patient follows with GI as an outpatient -Medication adjustment per primary with regards to years to dial -GI is following here -No longer drinking alcohol -Treatment for varices and bleeding as above History of gastric varices -Banding previously -Repeat banding done today -Continue nadolol COPD -As needed albuterol -Continue Spiriva Tobacco abuse -Recommend cessation -Nicotine replacement if needed DVT prophylaxis -SCDs and early mobilization -No chemoprophylaxis secondary to above bleeding CODE STATUS Full code Charges/Coding Visit Charges Inpatient E&M: 02421 Subs Hosp L2
--- NOTE | 2022-08-16 17:06 | EX.PCM.CON.G ---
HPI Consult Data Date of Consult: 08/16/22 HPI Narrative Reason for Consultation: GI bleed HPI Narrative: LUH RAMOS, is a 52 M who presents with history of cirrhosis, gastric varices, esophageal varices, portal hypertension, blood loss anemia, hemorrhoids.? He is presenting today because he vomited blood this morning x1.? He states that when he takes his ursodiol it makes him nauseous.? On 02/21/[address] Tenorio and had his ursodiol decreased to only 3 mg daily instead of twice daily.? This was to help his nausea.? His Protonix was reduced as well to 40 mg p.o. daily.? This did help.? Patient experienced some nausea earlier today and started dry heaving and then had 1 episode of the bloody vomit.? She does not feel nauseous currently.? He is not lightheaded, dizzy, weak, short of breath. Luh established with this clinic through hospitalization with [facility]. He presented to [facility] ED 02.20.21 with nausea and emesis of blood. Gastroenterology consulted 02.21.21 following EGD performed by ESTELLA. EGDs were repeated by gastroenterology with variceal banding performed for UGIB 02.23.21 in AM and PM. During this stay he was diagnosed with liver cirrhosis (likely r/t alcohol), portal hypertension, esophageal varices extending into stomach and thrombocytopenia (banded). EGD 04.14.2122 Grade II esophageal varices, banded; portal hypertensive gastropathy; esophageal candidiasis. Start Diflucan. EGD 04.18.21 to removed food bolus, successful; Schatzki ring, dilated 54F; non-bleeding erosive gastropathy. US RUQ 02.23.21 hepatomegaly 18.7cm with heterogenous echogenicity. Liver biopsy 05.19.21 findings consistent with cirrhosis. EGD and colonoscopy 10.06.21. EGD found Grade II esophageal varices, banded; moderate Schatzki ring, dilated to 15mm balloon; portal hypertensive gastropathy. No specimens collected. Colonoscopy found perianal and internal hemorrhoids; four 2-3mm tubular adenoma polyps; diverticulosis of RS and sigmoid colons. MELD 05.09.21 7 10.18.21 7 Weight 08.17.21 175lbs Plan last visit 10.20.21: Cirrhosis ? doing well. Losing weight. Iron anemia ? hgb increased from 8 to 14; likely r/t oozing portal gastropathy and esophageal varices. Biochemical workup Esophageal varices ? Thrombocytopenia ? secondary to portal HTN; doing well with value >100 Portal HTN ? Almost no varices seen on endoscopy. No TIPS. Sleep varies as he wakes 3-4 in the morning usually to urinate, but sometimes does wake randomly. Also has difficulty with falling asleep. He does have some forgetfulness and brain fog. Denies issues with jaundice (occasionally feels eyes are yellow), pruritis or bleeding. Dr. Moya would like to discuss reduction of ursodiol: he has been having some bowel upset and then requires BM with loose stools. Loose stools with repeated stooling for incomplete evacuation have been present for approximately a year; ursodiol started in . PCP also reduced PPI to QD. [facility] Medical History ADHD Alcohol use Anemia Arthritis Asthma Back pain Chronic cough Cirrhosis Colitis COPD (chronic obstructive pulmonary disease) Cubital tunnel syndrome on right Easy bruising Esophageal varices Gastric varices GERD (gastroesophageal reflux disease) Hiatal hernia History of echocardiogram History of GI bleed History of GI bleed History of hiatal hernia History of stress test History of ulceration Hx of fracture of ankle Hx of ulcerative colitis Injury of back Internal impingement of right shoulder Irritable bowel Leg cramps Low iron Portal hypertension Primary osteoarthritis, right elbow Restless legs Right carpal tunnel syndrome Right elbow pain Right shoulder pain Shortness of breath on exertion Smoker Tear of right biceps muscle Thrombocytopenia Wears dentures Wears glasses Home Medications ipratropium 0.5 mg-albuterol 3 mg (2.5 mg base)/3 mL nebulization soln 3 ml inhalation PRN PRN Wheezing 02/20/21 [History Last Taken Unknown] ferrous sulfate 325 mg (65 mg iron) tablet 325 mg PO DAILY Check with primary doctor 09/30/21 [History Last Taken 08/14/22] vitamin E 268 mg (400 unit) capsule 400 unit PO DAILY Check with primary doctor 09/30/21 [History Last Taken 08/14/22] albuterol sulfate 90 mcg/actuation aerosol inhaler 1 - 2 puff inhalation PRN PRN ASTHMA 06/14/22 [History Last Taken Unknown] nadolol 20 mg tablet 20 mg PO BID Check with primary doctor 06/14/22 [History Last Taken 08/15/22] tiotropium bromide 2.5 mcg/actuation mist for inhalation (Spiriva Respimat) 2 puff inhalation DAILY Check with primary doctor 06/14/22 [History Last Taken 08/15/22] pantoprazole 40 mg tablet,delayed release 40 mg PO DAILY Check with primary doctor 08/15/22 [History Last Taken 08/15/22] ursodiol 300 mg capsule 300 mg PO QHS Check with primary doctor 08/15/22 [History Last Taken 08/15/22] Allergy/AdvReac Type Severity Reaction Status Date / Time No Known Allergies Allergy Verified 08/15/22 13:47 Family History Other Cancer Diabetes Heart disease Surgical History History of esophagogastroduodenoscopy (EGD) History of esophagogastroduodenoscopy (EGD) History of foot surgery Hx of colonoscopy Hx of elbow surgery Hx of repair of right rotator cuff Social History Smoking Status: Current every day smoker tobacco type: cigarettes ROS Constitutional Constitutional: Reports chills and fatigue; Denies fever(s) or malaise Eyes Eyes: Denies blurry vision ENT HEENT: Denies headache(s) or nasal discharge Cardiovascular Cardiovascular: Denies chest pain, dyspnea on exertion or syncope Respiratory/Chest Respiratory/Chest: Denies cough, shortness of breath at rest or shortness of breath with exertion Gastrointestinal Gastrointestinal: Reports abdominal pain and hematemesis; Denies constipation, diarrhea, nausea or vomiting Genitourinary Genitourinary: Denies dysuria Musculoskeletal Musculoskeletal: Denies abnormal gait Integumentary Integumentary: Denies jaundice Neurologic Neurologic: Denies focal weakness, numbness or tremor(s) Psychiatric Psychiatric: Denies anxiety or depression Endocrine Endocrinology: Denies flushing Hematologic/Lymphatic Hematologic/Lymphatic: Denies easy bleeding Physical Exam Const alert, oriented x3, no apparent distress, average body habitus and well nourished Constitutional Narrative: Middle-aged white male sitting up in bed, appears comfortable, at bedside, appears nontoxic HEENT head/scalp atraumatic, moist oral mucous membranes and oropharynx normal HEENT Narrative: Incision is fair, Mallampati is 2, no thrush Head and Scalp: normocephalic Eyes Eyes Narrative: No scleral icterus Resp normal respiratory effort, no retractions, no use of accessory muscles and clear to auscultation bilaterally Auscultation: Negative for rales, rhonchi or wheezes Cardio regular rate, regular rhythm, S1 normal heart sound, S2 normal heart sound, no murmurs, no rub, no gallops and no clicks GI normal to inspection, nondistended, normoactive bowel sounds and soft to palpation GI Narrative: No noted fluid wave, mild tenderness with palpation to the upper abdomen more superficially patient states he thinks it is related to his dry heaving Extremity no clubbing, cyanosis or edema Extremity Narrative: 2+ pedal pulses Neuro oriented x3, moves all extremities and no focal motor deficits Speech: speech normal Psych affect normal Psych Narrative: Pleasant, appropriate Lab / Micro Data Result Diagrams: 08/16/22 05:30 08/16/22 05:30 Labs: Laboratory Results - last 24 hr 08/15/22 14:27: ESR 57 H 08/15/22 14:27: C-React Prot Ext Range 5.39 H 08/16/22 00:30: Hgb 12.8 L, Hct 39.3 L 08/16/22 05:30: WBC 4.7, RBC 3.93 L, Hgb 12.9 L, Hct 38.6 L, MCV 98.2 H, MCH 32.8 H, MCHC 33.4, RDW Std Deviation 58.5 H, RDW Coeff of Jumana 16.0 H, Plt Count 74 L, MPV 13.0 H, Immature Gran % (Auto) 0.200, Neut % (Auto) 48.8, Lymph % (Auto) 30.4, [place] % (Auto) 15.8 H, Eos % (Auto) 3.9, Baso % (Auto) 0.9, Absolute Neuts (auto) 2.3, Absolute Lymphs (auto) 1.42, Nucleated RBC % 0 08/16/22 05:30: Sodium 137, Potassium 4.3, Chloride 107, Carbon Dioxide 27.0, Anion Gap 3 L, BUN 10, Creatinine 0.82, Estim Creat Clear Calc 104.18, Est GFR (MDRD) Af Amer 127, Est GFR (MDRD) Non-Af 105, BUN/Creatinine Ratio 12.3, Glucose 116 H, Calcium 8.5, Magnesium 2.0, Total Bilirubin 1.40 H, AST 97 H, ALT 42, Alkaline Phosphatase 132 H, Total Protein 6.8, Albumin 2.9 L, Globulin 3.9, Albumin/Globulin Ratio 0.7 L 08/16/22 05:30: APTT 36.8 H 08/16/22 05:30: Phosphorus 3.7 Radiology Impression Gallbladder Ultrasound 08/15/22 15:59 IMPRESSION: Fatty liver. 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 (i.e. Measuring a kidney on an US does not correlate with an exact same measurement on a CT.) Electronically Signed: Carlyle Mckinney MD at 18:18 EDT , Assessment & Plan Assessment/Plan (1) Portal hypertension: PLAN: Patient has put hypertension secondary to alcoholic cirrhosis. He will need to take nadolol 10 mg twice daily. This should hopefully decrease his portal hypertension. His abdominal ultrasound showed ascites without signs of thrombosis and hepatic or portal veins. We did not place him on midodrine at this time. 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 His platelet count SD increased which is good. (3) Acute upper gastrointestinal bleeding: PLAN: Upper GI bleed secondary to acute variceal bleed. He was treated endoscopically. On repeat endoscopy there was no stigmata of bleeding. Bands were placed to the proximal esophageal varices. He will be on nadolol 10 mg twice daily. He will be on Protonix 40 mg twice daily. Charges/Coding Visit Charges Inpatient E&M: 51283 Init Hosp L3
[2022-08-16] MEDS: Morphine 2 MG/ML Syringe IV ×2 (17:13→21:27)
[2022-08-16] MEDS: Ursodiol 250 MG Tablet PO (21:28)
[2022-08-16] MEDS: 0.9% Saline Lock 10 ML Syringe IV (21:28)
[2022-08-16] MEDS: Nadolol 20 MG Tablet PO (21:28)
[2022-08-17 03:00] VITALS: BP 125/71; PULSE 60; RESP 16; TEMP 37.1; O2SAT 93
[2022-08-17 06:07] LABS: Absolute Lymphocyte Count 1.35 X10^3/uL (0.83-4.51); Absolute Neutrophil Count 3.2 X10^3/uL (2.0-7.7); Basophil# 0.03 X10^3/uL; Basophil% 0.5 % (0-1); Eosinophil# 0.16 X10^3/uL; Eosinophils% 2.8 % (0-5); Hemoglobin 13.5 g/dL (13.0-16.5); Lymphocyte # 1.35 X10^3/ul (0.83-4.51); Lymphocyte % 23.4 % (19-41); Mean Corp Hgb Conc 32.9 g/dL (32-36); Mean Corpuscular Hgb 31.8 pg (27.0-32.0); Mean Corpuscular Volume 96.5 fL (80-94); Mean Platelet Vol. 12.7 fl (6.2-12.0); Monocyte# 0.99 X10^3/uL; Monocyte% 17.1 % (0-10); NRBC Flagged by Analyzer 0 % (0-5); Neutrophil # 3.24 X10^3/uL (2.7-7.7); POSITIVE COUNT YES; Platelet Count 80 K/mm3 (150-450); RBC Distribution Width CV 15.9 % (11.6-14.6); RBC Distribution Width SD 56.4 fl (35.1-43.9); Red Blood Count 4.25 M/mm3 (4.6-6.2); White Blood Count 5.8 K/mm3 (4.4-11.0)
--- NOTE | 2022-08-17 07:54 | PCM.DC.SUM ---
Providers Date of Admission: 08/15/22 Date of Discharge: 08/17/22 Primary Care Physician: Dr. Aron Moya MD Consultations 08/15/22 20:28 Consult: Gastroenterology Routine Consulting Provider: [facility] Reason for Consult: GI bleed EMERGENT Consult: No Notified: Yes Date Notified: 08/15/22 Time Notified: 18:43 Method of Notification: ED Physician Initiated Reason For Visit: UPPER GI BLEED Diagnosis Discharge Diagnosis (1) Portal hypertension: Status: Acute Code(s): K76.6 - Portal hypertension (2) Thrombocytopenia: Status: Acute Code(s): D69.6 - Thrombocytopenia, unspecified (3) Acute upper gastrointestinal bleeding: Status: Resolved Code(s): K92.2 - Gastrointestinal hemorrhage, unspecified Plan Hematemesis secondary to grade 2 esophageal varices and Erica-Johns tear -EGD done today 08/16/2022 that showed 4 columns of oozing grade 2 varices in the lower third of the esophagus, 5 mm at largest diameter with stigmata of recent bleeding-2 bands were successfully placed with incomplete eradication of varices but bleeding had stopped by the end of the procedures, patient also had moderate portal hypertensive gastropathy in the gastric cardia fundus and gastric body -Continue octreotide drip and Protonix drip for another 24 hours -Full liquid diet -Repeat CBC in a.m.--> bleeding is seem to stop on serial CBC done prior to scope -Repeat CBC in a.m. -Continue nadolol Nausea and vomiting/dry heaving -Seems to be related to medication tolerance -Discussed with Dr. Tenorio from gastroenterology and he will address any medication changes that can be made Liver cirrhosis -MELD scores have been consistently around 7 -Patient follows with GI as an outpatient -Medication adjustment per primary with regards to years to dial -GI is following here -No longer drinking alcohol -Treatment for varices and bleeding as above History of gastric varices -Banding previously -Repeat banding done today -Continue nadolol COPD -As needed albuterol -Continue Spiriva Tobacco abuse -Recommend cessation -Nicotine replacement if needed DVT prophylaxis -SCDs and early mobilization -No chemoprophylaxis secondary to above bleeding CODE STATUS Full code Medications at Discharge Home Medications ipratropium 0.5 mg-albuterol 3 mg (2.5 mg base)/3 mL nebulization soln 3 ml inhalation PRN PRN Wheezing 02/20/21 vitamin E 268 mg (400 unit) capsule 400 unit PO DAILY Check with primary doctor 09/30/21 albuterol sulfate 90 mcg/actuation aerosol inhaler 1 - 2 puff inhalation PRN PRN ASTHMA 06/14/22 nadolol 20 mg tablet 20 mg PO BID Check with primary doctor 06/14/22 tiotropium bromide 2.5 mcg/actuation mist for inhalation (Spiriva Respimat) 2 puff inhalation DAILY Check with primary doctor 06/14/22 levofloxacin 750 mg tablet 750 mg PO DAILY #6 tabs 08/17/22 pantoprazole 40 mg tablet,delayed release 40 mg PO BID Check with primary doctor #60 tabs 08/17/22 Hospital Course Operations None Procedures EGD and - (CT chest abdomen pelvis/CT soft tissue neck/gallbladder ultrasound) Summary of Care Provided Minutes Spent on Discharge: 37 Hospital Course: Mr. Moncada is a 52-year-old white male who presented to the emergency department [facility] on 08/15/2022 with hematemesis.? 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 He has a history of cirrhosis and esophageal varices from a long history of alcohol abuse.? He been fairly stable for the last 2 years after being admitted in February 2021.? He is no longer drinking alcohol.? He had an interval endoscopic examination of his esophagus about a year ago that showed significant improvement in his varices.? He reported that the medications he has been taking for his liver disease have progressively making him have worsening vomiting and dry heaving.? He is taking them with food.? On the day of presentation he had been dry heaving over the last several days and on the day of presentation he vomited dark red blood.? Hemoglobin was 14 on presentation however repeat after admission earlier this morning dropped to 12.8.? He was placed on a Protonix and octreotide drip. He was also on SBP prophylaxis with ceftriaxone during his hospital course. He was taken for endoscopy on 08/16/2022. During endoscopy he was found to have 4 columns of oozing grade 2 varices in the lower third of the esophagus, 5 mm at largest diameter with stigmata of recent bleeding-2 bands were successfully placed with incomplete eradication of varices but bleeding had stopped by the end of the procedures, patient also had moderate portal hypertensive gastropathy in the gastric cardia fundus and gastric body. With the severity of his varices we kept him on octreotide drip and Protonix drip for another 24 hours. He was able to tolerate a diet without any issue. His hemoglobin had stabilized and he had no issues by the a.m. of 08/17/2022. I discussed the case with gastroenterology and they felt he was stable for discharge. Medication changes included discontinuing his iron supplements and his Ursodiol as it is believed that these might be causing his nausea and vomiting. He will continue Protonix but increase the dose to twice daily for 8 weeks and then transition back to daily following 8 weeks. We added levofloxacin to complete treatment for SBP prophylaxis in a cirrhotic with a GI bleed. He has 6 more days of antibiotics to complete this treatment. All other medications remain the same. Hemoglobin at the time of discharge was 13.5. Platelet count was 80,000 which is at his baseline. He was discharged home in stable condition on 08/17/2022. He is to follow-up with his primary care physician within the next 2 weeks. He is to call Dr. Tenorio's office to follow-up with him within the next month. Discharge diagnoses: Hematemesis Bleeding esophageal varices Erica-Johns tear Nausea and vomiting Liver cirrhosis due to alcohol abuse History of gastric varices COPD Tobacco abuse Physical Exam Const alert, oriented x3, no apparent distress, average body habitus and well nourished Constitutional Narrative: Middle-aged white male sitting up in bed, appears comfortable, at bedside, appears nontoxic General Appearance: cooperative, comfortable, well kempt and well developed Orientation / Consciousness: awake, oriented to person, oriented to place and oriented to time Exam Limitations: no limitations HEENT normocephalic, head/scalp atraumatic, hearing grossly normal bilaterally, moist oral mucous membranes and oropharynx normal HEENT Narrative: Mallampati 2, no thrush, dentition is good for age Eyes PERRL, EOMs intact bilaterally and conjunctivae normal Eyes Narrative: No icterus Neck no lymphadenopathy, supple and no JVD Neck Narrative: Trachea midline, no thyroid enlargement Resp normal respiratory effort, no retractions, no use of accessory muscles and clear to auscultation bilaterally Auscultation: Negative for rales, rhonchi or wheezes Cardio regular rate, regular rhythm, S1 normal heart sound, S2 normal heart sound, no murmurs, no rub, no gallops and no clicks GI normal to inspection, nondistended, normoactive bowel sounds, soft to palpation and non-tender GI Narrative: No noted fluid wave, tenderness from yesterday has resolved Extremity no clubbing, cyanosis or edema Extremity Narrative: 2+ pedal pulses Skin no rashes or lesions noted, no wounds, skin turgor normal and no jaundice Neuro oriented x3, CN's II-XII intact bilaterally, moves all extremities, no focal motor deficits and no sensory deficits noted Speech: speech normal Psych affect normal Psych Narrative: Pleasant, appropriate Weight / BMI Weight Weight: 81.6 kg Body Mass Index (BMI) 26.5 ABG / Lab / Microbiology Data Result Diagrams: 08/17/22 05:40 08/16/22 05:30 Laboratory: Laboratory Results - last 24 hr 08/17/22 05:40: WBC 5.8, RBC 4.25 L, Hgb 13.5, Hct 41.0, MCV 96.5 H, MCH 31.8, MCHC 32.9, RDW Std Deviation 56.4 H, RDW Coeff of Jumana 15.9 H, Plt Count 80 L, MPV 12.7 H, Immature Gran % (Auto) 0.200, Neut % (Auto) 56.0, Lymph % (Auto) 23.4, [facility] % (Auto) 17.1 H, Eos % (Auto) 2.8, Baso % (Auto) 0.5, Absolute Neuts (auto) 3.2, Absolute Lymphs (auto) 1.35, Nucleated RBC % 0 D/C Instructions Discharge Diet: Low fat / Low cholesterol Discharge Activity: Return to Normal Activity Return to work on: 08/18/22 Meaningful Use Info Meaningful Use Diagnoses (Choose all that apply): None applicable Discharge Plan Admission Admit Date/Time: 08/15/22 18:41 Primary Reason for Your Visit: Vomiting Blood Attending Provider: Iris Ng Primary Care Provider: Aron Moya Consulting Providers: Kain Xiong Instructions Additional Instructions / Restrictions: Please complete antibiotics for entirety of course Per Friend okay to stop iron supplements and Ursodiol Take Protonix twice a day once in the morning and once in the evening for 8 weeks and then go back to Protonix 40 mg once a day in the morning Discharge Orders/Prescriptions Prescriptions: New levofloxacin 750 mg tablet 750 mg PO DAILY Qty: 6 0RF Continued ipratropium-albuterol 0.5 mg-3 mg(2.5 mg base)/3 mL Solution For Nebulization 3 ml inhalation PRN PRN (Reason: Wheezing) vitamin E 400 unit Capsule 400 unit PO DAILY albuterol sulfate 90 mcg/actuation HFA aerosol inhaler 1 - 2 puff INHALATION PRN PRN (Reason: ASTHMA) Spiriva Respimat 2.5 mcg/actuation mist 2 puff INHALATION DAILY nadolol 20 mg tablet 20 mg PO BID Changed pantoprazole 40 mg tablet,delayed release (DR/EC) 40 mg PO BID Qty: 60 1RF Discontinued ferrous sulfate 325 mg (65 mg iron) Tablet 325 mg PO DAILY ursodiol 300 mg capsule 300 mg PO QHS Referrals / Follow Up: Aron Moya MD [Primary Care Provider] - 08/21/22 1:30 pm [employer] DO [Med Staff - Active Staff] - Within 1 Month (Call his office in the next 24 to 48 hours to schedule appointment) Disposition Disposition (needs filled in before D/C Order can be placed): Home, Self Care Charges/Coding Visit Charges Inpatient E&M: 02615 Disch Hosp >30min
[2022-08-17 09:00] VITALS: BP 139/82; PULSE 62; RESP 16; TEMP 36.9; O2SAT 94
[2022-08-17] MEDS: Nadolol 20 MG Tablet PO (09:25)
[2022-08-17 15:09] LABS: IgG, Quant 1145 mg/dL (603-1613); Immunoglobulin G, Subclass 1 782 mg/dL (248-810); Immunoglobulin G, Subclass 2 241 mg/dL (130-555); Immunoglobulin G, Subclass 3 94 mg/dL (15-102); Immunoglobulin G, Subclass 4 18 mg/dL (2-96)
== END 2022-08-17 10:21 | disposition home or self-care (01) | DRG 242 ==
LOC: ED 14:27 → MS3 18:45
PROVIDERS: Anesthesiology; Internal Medicine Gastroenterology; Admitting Provider Family Medicine; Emergency Provider Student in an Organized Health Care Education/Training Program; PCP Family Medicine; Visit Provider Internal Medicine
PROC: 0DJ08ZZ Inspection of Upper Intestinal Tract, Via Natural or Artificial Opening Endoscopic (ICD-10-PCS; CPT 43235; principal; 2022-08-16 11:25)
DX: I85.01 Esophageal varices with bleeding (principal); K70.31 Alcoholic cirrhosis of liver with ascites; K76.6 Portal hypertension; J44.9 Chronic obstructive pulmonary disease, unspecified; D69.59 Other secondary thrombocytopenia; K76.0 Fatty (change of) liver, not elsewhere classified; F17.210 Nicotine dependence, cigarettes, uncomplicated; K31.89 Other diseases of stomach and duodenum; K21.9 Gastro-esophageal reflux disease without esophagitis; F10.11 Alcohol abuse, in remission; K22.6 Gastro-esophageal laceration-hemorrhage syndrome; Z79.899 Other long term (current) drug therapy
CPT/HCPCS: 36415; 70491; 71260; 74177; 76705; 80048; 80053; 80076; 82140; 82784; 82787; 83690; 83735; 84100; 85014; 85018; 85025; 85610; 85652; 85730; 86140; 86850; 86900; 86901; 93005; 97802; 99285; 99406; J7050; J7120; Q9967; A4216; J2405; J3490

== ENCOUNTER → 2022-08-21 | Outpatient (CLI) | payer MEDICAID, SELFPAY ==
[2022-08-21 18:06] LABS: Absolute Lymphocyte Count 1.43 X10^3/uL (0.83-4.51); Absolute Neutrophil Count 4.3 X10^3/uL (2.0-7.7); Basophil# 0.06 X10^3/uL; Basophil% 0.8 % (0-1); Eosinophil# 0.18 X10^3/uL; Eosinophils% 2.5 % (0-5); Hematocrit 44.3 % (40-54); Hemoglobin 14.1 g/dL (13.0-16.5); Lymphocyte # 1.43 X10^3/ul (0.83-4.51); Mean Corp Hgb Conc 31.8 g/dL (32-36); Mean Corpuscular Hgb 31.5 pg (27.0-32.0); Mean Corpuscular Volume 99.1 fL (80-94); Monocyte# 1.13 X10^3/uL; Monocyte% 15.8 % (0-10); NRBC Flagged by Analyzer 0 % (0-5); Neutrophil # 4.33 X10^3/uL (2.7-7.7); Neutrophil % 60.6 % (47-70); Platelet Count 118 K/mm3 (150-450); RBC Distribution Width CV 15.9 % (11.6-14.6); RBC Distribution Width SD 58.4 fl (35.1-43.9); Red Blood Count 4.47 M/mm3 (4.6-6.2); White Blood Count 7.2 K/mm3 (4.4-11.0)
== END | disposition home or self-care (01) ==
PROVIDERS: PCP Family Medicine; Visit Provider Nurse Practitioner Family
DX: D64.9 Anemia, unspecified (principal)
CPT/HCPCS: 36415; 85025

== ENCOUNTER 2022-09-23 08:46 | Inpatient (IN) | payer MEDICAID, SELFPAY ==
[2022-09-23] VITALS (56 sets, daily range): BP systolic 41–222; BP diastolic 16–125; PULSE 49–130; RESP 14–32; TEMP 34.2–37; O2SAT 92–100; BMI 27.0; BMI 27.8
--- NOTE | 2022-09-23 08:50 | EX.ED.DYSGE1 ---
HPI History of Present Illness Chief Complaint: GI Bleed [facility] Medical History (Updated 09/23/22 @ 16:[address] Anton Bishop DO) Acute on chronic respiratory failure with hypoxia ADHD Alcohol use Anemia Arthritis Asthma Back pain Chronic cough Cirrhosis Colitis COPD (chronic obstructive pulmonary disease) Cubital tunnel syndrome on right Easy bruising Esophageal varices Gastric varices GERD (gastroesophageal reflux disease) Hematemesis of fresh blood Hiatal hernia History of echocardiogram History of GI bleed History of GI bleed History of hiatal hernia History of stress test History of ulceration Hx of fracture of ankle Hx of ulcerative colitis Injury of back Internal impingement of right shoulder Irritable bowel Leg cramps Low iron On mechanically assisted ventilation Portal hypertension Primary osteoarthritis, right elbow Restless legs Right carpal tunnel syndrome Right elbow pain Right shoulder pain Shortness of breath on exertion Smoker Tear of right biceps muscle Thrombocytopenia Wears dentures Wears glasses Home Medications ipratropium 0.5 mg-albuterol 3 mg (2.5 mg base)/3 mL nebulization soln 3 ml inhalation PRN PRN Wheezing 02/20/21 [History Last Taken Unknown] vitamin E 268 mg (400 unit) capsule 400 unit PO DAILY Check with primary doctor 09/30/21 [History Last Taken 08/14/22] albuterol sulfate 90 mcg/actuation aerosol inhaler 1 - 2 puff inhalation PRN PRN ASTHMA 06/14/22 [History Last Taken Unknown] nadolol 20 mg tablet 20 mg PO BID Check with primary doctor 06/14/22 [History Last Taken 08/15/22] tiotropium bromide 2.5 mcg/actuation mist for inhalation (Spiriva Respimat) 2 puff inhalation DAILY Check with primary doctor 06/14/22 [History Last Taken 08/15/22] pantoprazole 40 mg tablet,delayed release 40 mg PO BID Check with primary doctor #60 tabs 08/17/22 [Rx Last Taken Unknown] Allergy/AdvReac Type Severity Reaction Status Date / Time No Known Allergies Allergy Verified 09/23/22 08:47 Family History Other Cancer Diabetes Heart disease Surgical History History of esophagogastroduodenoscopy (EGD) History of esophagogastroduodenoscopy (EGD) History of foot surgery Hx of colonoscopy Hx of elbow surgery Hx of repair of right rotator cuff Social History Smoking Status: Current every day smoker tobacco type: cigarettes EXAM Physical Exam Const Vital Signs: 09/23/22 08:47 09/23/22 09:30 09/23/22 09:45 Temperature 98.6 F Temperature Source Temporal Pulse Rate 84 78 70 Respiratory Rate 15 24 H Respiratory Effort Respiratory Depth Respiratory Pattern Blood Pressure 139/84 H 69/40 L 78/40 L Blood Pressure Mean 102 49 52 Pulse Ox 97 97 96 Oxygen Delivery Method Room Air Room Air Nasal Cannula Oxygen Flow Rate (L/min) 2 Fraction of Inspired Oxygen (FIO2) 09/23/22 10:06 09/23/22 10:00 09/23/22 10:05 Temperature Temperature Source Pulse Rate 49 L 71 Respiratory Rate 20 H Respiratory Effort Mechanically Ventilated Respiratory Depth Normal Respiratory Pattern Normal Blood Pressure 101/66 186/92 H Blood Pressure Mean 77 123 Pulse Ox 100 95 Oxygen Delivery Method Mechanical Ventilator Mechanical Ventilator Oxygen Flow Rate (L/min) Fraction of Inspired Oxygen (FIO2) 50 09/23/22 10:15 09/23/22 10:02 Temperature Temperature Source Pulse Rate 69 104 H Respiratory Rate 24 H 14 Respiratory Effort Respiratory Depth Respiratory Pattern Normal Blood Pressure 222/97 H Blood Pressure Mean 138 Pulse Ox 97 100 Oxygen Delivery Method Mechanical Ventilator Oxygen Flow Rate (L/min) Fraction of Inspired Oxygen (FIO2) 40 40 MDM MDM MDM Narrative Medical decision making narrative: HISTORY OF PRESENT ILLNESS: 52-year-old male here with concerns for upper abdominal pain, hematemesis. States he had 4 episodes of bright bloody emesis. He further states he feels a sense of fullness in the abdomen that started this morning. No recent travel or trauma surgery. No alcohol use. Notes prior to arrival he had approximately half cup full of bright red vomitus. REVIEW OF SYSTEMS: Pertinent positives: Hematemesis Pertinent negatives: Syncope, hemoptysis PHYSICAL EXAM: Nursing triage notes reviewed, Vital signs reviewed Constitutional: please see mdm HENT: MMM Eyes: Pupils equal round and reactive to light, Extraocular muscles intact Neck: No stridor, no JVD, full neck ROM Lungs: Clear to auscultation, No wheezing or rales. No increased work of breathing, no conversational dyspnea, no accessory muscle use, no nasal flaring. No respiratory distress noted Heart: Regular rate and rhythm, No murmurs, No rubs and No gallops, 2+ distal pulses (radial, femoral, posterior tibial) in all extremities Abdomen: Soft, there is no tenderness, rigidity, rebound or guarding, no obvious peritoneal signs, no palpable pulsatile abdominal masses, no auscultated abdominal bruit : No CVAT Extremities: No edema Neuro: No focal neurological deficits, cranial nerves II through XII intact, 5/5 strength in all extremities. Intact sensation to light touch in all extremities, 2+ reflexes bilateral patella tendons. Normal gait. No ataxia. Skin: No rash or lesions noted MEDICAL DECISION MAKING: Chief Complaint: Hematemesis External records reviewed: Last GI consultation 08/16/[address] Tenorio. PLAN: Upper GI bleed secondary to acute variceal bleed. He was treated endoscopically. On repeat endoscopy there was no stigmata of bleeding. Bands were placed to the proximal esophageal varices. He will be on nadolol 10 mg twice daily. He will be on Protonix 40 mg twice daily. Factors affecting care: history of cirrhosis, gastric varices, esophageal varices, portal hypertension, blood loss anemia, hemorrhoids. Social determinants of health: Current everyday smoker History obtained from others: The patient's Consults: Gastroenterology, internal medicine ALL IMAGES (IF OBTAINED) HAVE BEEN PERSONALLY REVIEWED AND INTERPRETED BY MYSELF. MDM Narrative: Patient was hemodynamically stable, afebrile, nontoxic-appearing. Abdominal exam is benign not consistent acute surgical process. I considered the following differential diagnosis: Variceal bleeding, anemia, decompensated cirrhosis 2 large-bore IVs were placed in bilateral antecubital fossa. 1 L fluid was given, Protonix given empirically Zofran was given empirically. I obtained a broad lab and imaging work-up to further elucidate etiology the patient's complaints. During the patient's ED course he became hypotensive, diaphoretic and near syncopal. He continued to have several episodes of hematemesis totaling approximately 1 L of blood. At this point 2 units of O- blood were ordered and transfused. Type and cross was sent. Patient was also ordered 4 units of typed and crossed blood to be available for transfusion. preparations were made for intubation for airway protection. Risk and benefits of procedure were explained to the patient family who agreed. Patient was intubated without issue. Please see procedure note. Patient was also given ceftriaxone for mortality benefit he was started on Protonix and octreotide. I paged Dr. Tenorio the patient's building illuminating engineer who agreed to evaluate the patient in the emergency department immediately. Patient will be taken to the operating room for definitive EGD. The patient and/or family, caregivers express understanding. The patient and/or family, caregivers agrees with the plan. Total critical care time today provided was at least 60 minutes. This excludes separately billable procedures. Critical care time (if documented) is secondary to the patient having high probability of clinically significant/life threatening deterioration in the patient's condition which required my urgent intervention. Shared decision making: I will have a discussion with the patient and or visitors regarding risk/benefits of further testing or admission. They will be made aware of of the risk/benefits inherent in this decision they will be given the opportunity to voice understanding. Lab Data Labs: Laboratory Results - last 24 hr 09/23/22 09/23/22 09/23/22 08:55 08:57 08:57 WBC 6.1 RBC 3.37 L Hgb 10.8 L Hct 33.1 L MCV 98.2 H MCH 32.0 MCHC 32.6 RDW Std Deviation 54.4 H RDW Coeff of Jumana 15.1 H Plt Count 96 L MPV 12.9 H Immature Gran % (Auto) 0.300 Neut % (Auto) 58.1 Lymph % (Auto) 26.4 [place] % (Auto) 10.8 H Eos % (Auto) 3.6 Baso % (Auto) 0.8 Absolute Neuts (auto) 3.6 Absolute Lymphs (auto) 1.61 Nucleated RBC % 0 PT Cancelled INR Cancelled APTT Cancelled Sodium Potassium Chloride Carbon Dioxide Anion Gap BUN Creatinine Estim Creat Clear Calc Est GFR (MDRD) Af Amer Est GFR (MDRD) Non-Af BUN/Creatinine Ratio Glucose Calcium Total Bilirubin Direct Bilirubin AST ALT Alkaline Phosphatase B-Natriuretic Peptide Total Protein Albumin Globulin Lipase Blood Type Antibody Screen Crossmatch See Detail 09/23/22 09/23/22 09/23/22 08:57 08:57 09:00 WBC RBC Hgb Hct MCV MCH MCHC RDW Std Deviation RDW Coeff of Jumana Plt Count MPV Immature Gran % (Auto) Neut % (Auto) Lymph % (Auto) [place] % (Auto) Eos % (Auto) Baso % (Auto) Absolute Neuts (auto) Absolute Lymphs (auto) Nucleated RBC % PT INR APTT Sodium 140 Potassium 4.6 Chloride 109 H Carbon Dioxide 23.0 Anion Gap 8 BUN 9 Creatinine 0.82 Estim Creat Clear Calc 104.18 Est GFR (MDRD) Af Amer 125 Est GFR (MDRD) Non-Af 104 BUN/Creatinine Ratio 10.9 Glucose 164 H Calcium 9.0 Total Bilirubin 0.90 Direct Bilirubin 0.44 H AST 85 H ALT 42 Alkaline Phosphatase 123 H B-Natriuretic Peptide 66.3 Total Protein 7.4 Albumin 3.1 L Globulin 4.3 H Lipase 86 H Blood Type A POSITIVE Antibody Screen NEGATIVE Crossmatch Procedures Intubations Intubation Method: orotracheal Intubation Verification: Positive color change Intubation Complications: no complications Discharge Plan Triage Chief Complaint: GI Bleed ED Provider: Anton Bishop Dx/Rx/DC Orders Clinical Impression: Acute upper GI bleed, History of esophageal varices with bleeding Primary Care Provider: Aron Moya Disposition Disposition: Acute Care [facility]
--- NOTE | 2022-09-23 09:03 | EKG12_ITS ---
Test Reason : GI Blood Pressure : / mmHG Vent. Rate : 082 BPM Atrial Rate : 082 BPM P-R Int : 152 ms QRS Dur : 084 ms QT Int : 392 ms P-R-T Axes : 048 -13 026 degrees QTc Int : 457 ms Normal sinus rhythm Minimal voltage criteria for LVH, may be normal variant ( R in aVL ) Borderline ECG Confirmed by AGUSTIN PHELPS, KEYANA ([id number]), purchasing expeditor NETTIE TORRES ([id number]) on 09/25/2022 10:59:11 A M Referred By: Confirmed By:ZACARIAS VELEZ MD
[2022-09-23] MEDS: 0.9% Normal Saline 1,000 ML 1000 ML IV (09:11)
[2022-09-23] MEDS: Ondansetron 4 MG/2 ML Vial IV ×2 (09:11→13:57)
--- NOTE | 2022-09-23 09:20 | ED.RN ---
PATIENT CONDITION NOTICING TO DETERIORATE, SKIN NOW PALE AND SWEATY, PATIENT CONTINUES TO ACTIVELY VOMIT BLOOD. PATIENT PLACED INTO ED ROOM 2 DUE TO CONDITION CHANGES. DR. OSWALD AT BEDSIDE. ORDERS FOR STAT O NEGATIVE BLOOD PRODUCTS AND POTENTIAL NEED FOR SECURMENT OF AIRWAY PATIENT COMPLAINS OF SHORTNESS OF BREATH, SKIN PALE AND COOL.
[2022-09-23 09:30] LABS: Absolute Lymphocyte Count 1.61 X10^3/uL (0.83-4.51); Absolute Neutrophil Count 3.6 X10^3/uL (2.0-7.7); Basophil# 0.05 X10^3/uL; Basophil% 0.8 % (0-1); Eosinophil# 0.22 X10^3/uL; Eosinophils% 3.6 % (0-5); Hematocrit 33.1 % (40-54); Hemoglobin 10.8 g/dL (13.0-16.5); Lymphocyte # 1.61 X10^3/ul (0.83-4.51); Lymphocyte % 26.4 % (19-41); Mean Corp Hgb Conc 32.6 g/dL (32-36); Mean Corpuscular Volume 98.2 fL (80-94); Mean Platelet Vol. 12.9 fl (6.2-12.0); Monocyte# 0.66 X10^3/uL; Monocyte% 10.8 % (0-10); NRBC Flagged by Analyzer 0 % (0-5); Neutrophil # 3.55 X10^3/uL (2.7-7.7); Neutrophil % 58.1 % (47-70); POSITIVE COUNT YES; Platelet Count 96 K/mm3 (150-450); RBC Distribution Width CV 15.1 % (11.6-14.6); RBC Distribution Width SD 54.4 fl (35.1-43.9); Red Blood Count 3.37 M/mm3 (4.6-6.2); White Blood Count 6.1 K/mm3 (4.4-11.0)
[2022-09-23 09:42] LABS: AST(SGOT) 85 U/L (15-37); Alanine Aminotransfer ALT/SGPT 42 U/L (16-61); Albumin, Serum 3.1 g/dL (3.2-5.0); Alkaline Phosphatase 123 U/L (45-117); Anion Gap 8 (5-15); BUN 9 mg/dL (7-18); BUN/Creat Ratio 10.9 RATIO (10-20); Bilirubin, Direct 0.44 mg/dL (0.00-0.30); Chloride 109 mmol/L (98-107); Creatinine, Serum 0.82 mg/dL (0.70-1.30); EST Glomerular Filtration Rate 104 mL/min (>60); Est Glom Filt Rate - Afr Amer 125 mL/min (>60); Estimated Creatinine Clearance 104.18 ml/min; Globulin 4.3 g/dL (2.2-4.2); Glucose 164 mg/dL (74-106); Lipase 86 U/L (13-75); Potassium 4.6 mmol/L (3.5-5.1); Protein, Total 7.4 g/dL (6.4-8.2); Sodium Level 140 mmol/L (136-145)
[2022-09-23] MEDS: Ceftriaxone 1 GM/50 ML BAG IV (09:49)
--- NOTE | 2022-09-23 09:55 | ED.RN ---
DR. OSWALD ORDERS FOR 150MG SUCCINYLCHOLINE, 30MG ETOMIDATE FOR INTUBATION. DUE TO PATIENT BLOOD PRESSURE, DR. OSWALD ALSO ORDERS FOR PUSH DOSE EPINEPHRINE TO BE MIXED WITH 1ML CARDIAC EPINEPHRINE PLACED INTO 9ML OF SALINE FLUSH TO BE GIVEN BETWEEN ETOMIDATE AND SUCCS. 1000- 2ML EPI PUSH DOSE GIVEN 1001- SECOND DOSE OF 2ML EPI PUSH DOSE GIVEN.
[2022-09-23] MEDS: Etomidate 20 MG/10 ML Vial 30 MG IV (09:59)
[2022-09-23] MEDS: Succinylcholine Chloride 200 MG/10 ML SYRINGE 150 MG IV (10:00)
--- NOTE | 2022-09-23 10:08 | ED.RN ---
Addendum entered by Valery Thurston 09/23/22 10:48: UNIT 1- LEFT AC : [id number] UNIT 2- RIGHT AC: [id number] Original Note: FIRST UNIT OF O NEGATIVE TRAUMA BLOOD INITIATED AT 0952 IN LEFT AC, SECOND UNIT OF O NEGATIVE TRAUMA BLOOD INITIATED 0956 IN R AC.
[2022-09-23] MEDS: fentaNYL 100 MCG/2 ML Ampul IV ×2 (10:13→10:23)
--- NOTE | 2022-09-23 10:15 | ED.RN ---
PATIENT INTUBATED, AGITATED ON VENTILATOR. SOFT WRIST RESTRAINTS APPLIED BILATERALLY WITH GOOD CIRCULATION AND MOVEMENT. PATIENT BEING MEDICATED FOR AGITATION BASED OFF CPOT SCORE.
[2022-09-23] MEDS: fentaNYL drip 100 ML 2.5 MCG CONT INF (10:20)
--- NOTE | 2022-09-23 10:20 | NURSING ---
DR MONY OSWALD
[2022-09-23] MEDS: Etomidate 20 MG/10 ML Vial 10 MG IV (10:25)
--- NOTE | 2022-09-23 10:25 | RAD_ITS ---
EXAM: XR CHEST, 1 VIEW CLINICAL INDICATION: tube placement TECHNIQUE: Frontal view of the chest. COMPARISON: No relevant prior studies available. FINDINGS: LUNGS AND PLEURAL SPACES: Unremarkable. No consolidation or edema. No pneumothorax. No effusion. HEART: Unremarkable. Cardiac silhouette not enlarged. MEDIASTINUM: Central airways and mediastinal contour are unremarkable. BONES/JOINTS: Old fractures in the left posterior rib cage.. SOFT TISSUES: Unremarkable. TUBES, LINES AND DEVICES: ET tube tip is 6.6 cm above the atif. RAD/Chest 1 View (Portable) IMPRESSION: 1. No acute findings in the chest. 2. Satisfactory placement of ET tube. Electronically Signed: Nikos Kunz MD at 13:00 EDT ,
[2022-09-23] MEDS: Etomidate 20 MG/10 ML Vial IV (10:35)
--- NOTE | 2022-09-23 10:35 | ED.RN ---
DR. GALLEGOS AND DR. OSWALD AT BEDSIDE, BOTH NOTIFIED OF BLOOD PRESSURE TRENDING DOWN, NO ADDITIONAL BLOOD PRODUCTS TO BE DELIVERED AT THIS TIME. BLOOD BANK HAS CROSS MATCHED BLOOD PRODUCTS READY, OR AWARE AND WILL OBTAIN IF NEEDED.
--- NOTE | 2022-09-23 10:38 | NURSING ---
SURGERY THEN ICU 3 FRIEND/KITTOE GI BLEED
--- NOTE | 2022-09-23 10:40 | ED.RN ---
INITAL DOSE OF FENTANYL INFUSION STARTED AT 50MCG/HR PER ORDERS OF DR. OSWALD. TITRATED TO FINAL DOSE IN ER OF 75MCG/HR.
--- NOTE | 2022-09-23 10:42 | ED.RN ---
REPORT GIVEN TO JAYDA IN OR.
--- NOTE | 2022-09-23 10:42 | EX.PCM.CON.G ---
HPI Consult Data Date of Consult: 09/23/22 HPI Narrative Reason for Consultation: UGI bleeding HPI Narrative: LUH RAMOS, is a 52 M who presents with hematemesis. Patient reported it started around noon on the day of presentation and he was told by his diagnostics tech that if he ever coughed up blood to come to the emergency department.? He has a history of cirrhosis and esophageal varices from a long history of alcohol abuse.? He been fairly stable for the last 2 years after being admitted in February 2021.? He is no longer drinking alcohol.? He had an interval endoscopic examination of his esophagus about a year ago that showed significant improvement in his varices.? He reported that the medications he has been taking for his liver disease have progressively making him have worsening vomiting and dry heaving.? He is taking them with food.? On the day of presentation he had been dry heaving over the last several days and on the day of presentation he vomited dark red blood.? Hemoglobin was 14 on presentation however repeat after admission earlier this morning dropped to 10.1.? He was placed on a Protonix and octreotide drip.? He was also on SBP prophylaxis with ceftriaxone during his hospital course.? He was taken for endoscopy on 08/16/2022.? During endoscopy he was found to have 4 columns of oozing grade 2 varices in the lower third of the esophagus, 5 mm at largest diameter with stigmata of recent bleeding-2 bands were successfully placed with incomplete eradication of varices but bleeding had stopped by the end of the procedures, patient also had moderate portal hypertensive gastropathy in the gastric cardia fundus and gastric body. This morning he was intubated in the ED after having massive hematemesis. His blood pressure was low in the 80s with a MAP of 40. However after successive resuscitation his blood pressure is now 112/70 with a heart rate of 80. [facility] Medical History (Updated 09/23/22 @ 10:[address] Hernandez Thornton MD) Acute on chronic respiratory failure with hypoxia ADHD Alcohol use Anemia Arthritis Asthma Back pain Chronic cough Cirrhosis Colitis COPD (chronic obstructive pulmonary disease) Cubital tunnel syndrome on right Easy bruising Esophageal varices Gastric varices GERD (gastroesophageal reflux disease) Hematemesis of fresh blood Hiatal hernia History of echocardiogram History of GI bleed History of GI bleed History of hiatal hernia History of stress test History of ulceration Hx of fracture of ankle Hx of ulcerative colitis Injury of back Internal impingement of right shoulder Irritable bowel Leg cramps Low iron On mechanically assisted ventilation Portal hypertension Primary osteoarthritis, right elbow Restless legs Right carpal tunnel syndrome Right elbow pain Right shoulder pain Shortness of breath on exertion Smoker Tear of right biceps muscle Thrombocytopenia Wears dentures Wears glasses Home Medications ipratropium 0.5 mg-albuterol 3 mg (2.5 mg base)/3 mL nebulization soln 3 ml inhalation PRN PRN Wheezing 02/20/21 [History Last Taken Unknown] vitamin E 268 mg (400 unit) capsule 400 unit PO DAILY Check with primary doctor 09/30/21 [History Last Taken 08/14/22] albuterol sulfate 90 mcg/actuation aerosol inhaler 1 - 2 puff inhalation PRN PRN ASTHMA 06/14/22 [History Last Taken Unknown] nadolol 20 mg tablet 20 mg PO BID Check with primary doctor 06/14/22 [History Last Taken 08/15/22] tiotropium bromide 2.5 mcg/actuation mist for inhalation (Spiriva Respimat) 2 puff inhalation DAILY Check with primary doctor 06/14/22 [History Last Taken 08/15/22] pantoprazole 40 mg tablet,delayed release 40 mg PO BID Check with primary doctor #60 tabs 08/17/22 [Rx Last Taken Unknown] Allergy/AdvReac Type Severity Reaction Status Date / Time No Known Allergies Allergy Verified 09/23/22 08:47 Family History Other Cancer Diabetes Heart disease Surgical History History of esophagogastroduodenoscopy (EGD) History of esophagogastroduodenoscopy (EGD) History of foot surgery Hx of colonoscopy Hx of elbow surgery Hx of repair of right rotator cuff Social History Smoking Status: Current every day smoker tobacco type: cigarettes ROS ROS Narrative Patient is intubated and sedated Review of Systems ROS Unobtainable: due to mental status Physical Exam Const average body habitus and well nourished Constitutional Narrative: Middle-aged white male sitting up in bed, appears comfortable, at bedside, appears nontoxic General Appearance: well developed HEENT normocephalic, head/scalp atraumatic, hearing grossly normal bilaterally, moist oral mucous membranes and oropharynx normal HEENT Narrative: Mallampati 2, no thrush, dentition is good for age Eyes PERRL, EOMs intact bilaterally and conjunctivae normal Eyes Narrative: No icterus Neck no lymphadenopathy, supple and no JVD Neck Narrative: Trachea midline, no thyroid enlargement Resp normal respiratory effort, no retractions, no use of accessory muscles and clear to auscultation bilaterally Auscultation: Negative for rales, rhonchi or wheezes Cardio regular rate, regular rhythm, S1 normal heart sound, S2 normal heart sound, no murmurs, no rub, no gallops and no clicks GI normal to inspection, nondistended, normoactive bowel sounds, soft to palpation and non-tender Extremity no clubbing, cyanosis or edema Extremity Narrative: 2+ pedal pulses Skin no rashes or lesions noted, no wounds, skin turgor normal and no jaundice Neuro oriented x3, CN's II-XII intact bilaterally, moves all extremities, no focal motor deficits and no sensory deficits noted Speech: speech normal Psych affect normal Psych Narrative: Pleasant, appropriate Lab / Micro Data Result Diagrams: 09/23/22 08:57 09/23/22 08:57 Labs: Laboratory Results - last 24 hr 09/23/22 08:55: Crossmatch See Detail 09/23/22 08:57: WBC 6.1, RBC 3.37 L, Hgb 10.8 L, Hct 33.1 L, MCV 98.2 H, MCH 32.0, MCHC 32.6, RDW Std Deviation 54.4 H, RDW Coeff of Jumana 15.1 H, Plt Count 96 L, MPV 12.9 H, Immature Gran % (Auto) 0.300, Neut % (Auto) 58.1, Lymph % (Auto) 26.4, [place] % (Auto) 10.8 H, Eos % (Auto) 3.6, Baso % (Auto) 0.8, Absolute Neuts (auto) 3.6, Absolute Lymphs (auto) 1.61, Nucleated RBC % 0 09/23/22 08:57: PT Cancelled, INR Cancelled, APTT Cancelled 09/23/22 08:57: Sodium 140, Potassium 4.6, Chloride 109 H, Carbon Dioxide 23.0, Anion Gap 8, BUN 9, Creatinine 0.82, Estim Creat Clear Calc 104.18, Est GFR (MDRD) Af Amer 125, Est GFR (MDRD) Non-Af 104, BUN/Creatinine Ratio 10.9, Glucose 164 H, Calcium 9.0, Total Bilirubin 0.90, Direct Bilirubin 0.44 H, AST 85 H, ALT 42, Alkaline Phosphatase 123 H, Total Protein 7.4, Albumin 3.1 L, Globulin 4.3 H, Lipase 86 H 09/23/22 08:57: Blood Type A POSITIVE, Antibody Screen NEGATIVE Assessment & Plan Assessment/Plan (1) Hematemesis of fresh blood: PLAN: 51-year-old gentleman with history of cirrhosis complicated by esophageal and gastric varices who comes in with hematemesis. His platelet count is 95,000 and we are waiting on his INR. He has been given ceftriaxone. He will undergo an upper endoscopy. His family was explained alternatives, risk, benefits including not withstanding bleeding, infection, sepsis, perforation, need for discharge and . He will have an ASA of 3. Charges/Coding Visit Charges Inpatient E&M: 94174 Init Hosp L3
--- NOTE | 2022-09-23 10:51 | HP.PCM.HOS_ITS ---
HPI - General General Date of Admission: 09/23/22 HPI Narrative LUH RAMOS, is a 52 M past medical history significant for alcoholic cirrhosis of the liver with complications including portal hypertension and esophageal varices who presented with hematemesis and abdominal pain. Patient symptoms started on the morning of his admission. He apparently had 4 episodes of bright red emesis. Given the history was brought to the emergency department. Patient was started on Protonix drip as well as octreotide intubated to protect his airway given the massive hematemesis and consultation placed to Dr. Tenorio with GI and patient subsequently admitted to the intensive care unit [facility] Medical History Acute on chronic respiratory failure with hypoxia ADHD Alcohol use Anemia Arthritis Asthma Back pain Chronic cough Cirrhosis Colitis COPD (chronic obstructive pulmonary disease) Cubital tunnel syndrome on right Easy bruising Esophageal varices Gastric varices GERD (gastroesophageal reflux disease) Hematemesis of fresh blood Hiatal hernia History of echocardiogram History of GI bleed History of GI bleed History of hiatal hernia History of stress test History of ulceration Hx of fracture of ankle Hx of ulcerative colitis Injury of back Internal impingement of right shoulder Irritable bowel Leg cramps Low iron On mechanically assisted ventilation Portal hypertension Primary osteoarthritis, right elbow Restless legs Right carpal tunnel syndrome Right elbow pain Right shoulder pain Shortness of breath on exertion Smoker Tear of right biceps muscle Thrombocytopenia Wears dentures Wears glasses Home Medications ipratropium 0.5 mg-albuterol 3 mg (2.5 mg base)/3 mL nebulization soln 3 ml inhalation PRN PRN Wheezing 02/20/21 [History Last Taken Unknown] vitamin E 268 mg (400 unit) capsule 400 unit PO DAILY Check with primary doctor 09/30/21 [History Last Taken 08/14/22] albuterol sulfate 90 mcg/actuation aerosol inhaler 1 - 2 puff inhalation PRN PRN ASTHMA 06/14/22 [History Last Taken Unknown] nadolol 20 mg tablet 20 mg PO BID Check with primary doctor 06/14/22 [History Last Taken 08/15/22] tiotropium bromide 2.5 mcg/actuation mist for inhalation (Spiriva Respimat) 2 puff inhalation DAILY Check with primary doctor 06/14/22 [History Last Taken 08/15/22] pantoprazole 40 mg tablet,delayed release 40 mg PO BID Check with primary doctor #60 tabs 08/17/22 [Rx Last Taken Unknown] Allergy/AdvReac Type Severity Reaction Status Date / Time No Known Allergies Allergy Verified 09/23/22 08:47 Family History Other Cancer Diabetes Heart disease Surgical History History of esophagogastroduodenoscopy (EGD) History of esophagogastroduodenoscopy (EGD) History of foot surgery Hx of colonoscopy Hx of elbow surgery Hx of repair of right rotator cuff Social History Smoking Status: Current every day smoker tobacco type: cigarettes Vital Signs Vital Signs Vital Signs: 09/23/22 08:47 09/23/22 09:30 09/23/22 09:45 Temperature 98.6 F Temperature Source Temporal Pulse Rate 84 78 70 Respiratory Rate 15 24 H Respiratory Effort Respiratory Depth Respiratory Pattern Blood Pressure 139/84 H 69/40 L 78/40 L Blood Pressure Mean 102 49 52 Pulse Ox 97 97 96 Oxygen Delivery Method Room Air Room Air Nasal Cannula Oxygen Flow Rate (L/min) 2 Fraction of Inspired Oxygen (FIO2) 09/23/22 10:06 09/23/22 10:00 09/23/22 10:05 Temperature Temperature Source Pulse Rate 49 L 71 Respiratory Rate 20 H Respiratory Effort Mechanically Ventilated Respiratory Depth Normal Respiratory Pattern Normal Blood Pressure 101/66 186/92 H Blood Pressure Mean 77 123 Pulse Ox 100 95 Oxygen Delivery Method Mechanical Ventilator Mechanical Ventilator Oxygen Flow Rate (L/min) Fraction of Inspired Oxygen (FIO2) 50 09/23/22 10:15 09/23/22 10:25 09/23/22 10:30 Temperature Temperature Source Pulse Rate 69 71 90 Respiratory Rate 24 H 20 H 20 H Respiratory Effort Respiratory Depth Respiratory Pattern Blood Pressure 222/97 H 115/72 102/68 Blood Pressure Mean 138 86 79 Pulse Ox 97 94 92 Oxygen Delivery Method Mechanical Ventilator Mechanical Ventilator Mechanical Ventilator Oxygen Flow Rate (L/min) Fraction of Inspired Oxygen (FIO2) 40 40 40 09/23/22 10:40 09/23/22 10:02 Temperature Temperature Source Pulse Rate 66 104 H Respiratory Rate 20 H 14 Respiratory Effort Respiratory Depth Respiratory Pattern Normal Blood Pressure 108/69 Blood Pressure Mean 82 Pulse Ox 100 100 Oxygen Delivery Method Mechanical Ventilator Oxygen Flow Rate (L/min) Fraction of Inspired Oxygen (FIO2) 40 40 Weight Weight: 83 kg Body Mass Index (BMI) 27.0 Physical Exam Narrative GENERAL: Sedated on the vent HEENT: ET tube in place EYES; Anicteric, Normal Conjunctiva NECK; supple, normal thyroid, RESPIRATORY: Diminished to auscultation CARDIOVASCULAR: Regular S1 S2, GI: Distended abdomen : No Renal angle tenderness; EXTREMITIES: No edema, no clubbing, MUSCULOSKELETAL: no muscle wasting NEURO: Sedated on the vent. SKIN: No Rash PSYCH; unable to assess Results Lab / Micro Data Result Diagrams: 09/23/22 08:57 09/23/22 08:57 Labs: Laboratory Results - last 24 hr 09/23/22 08:55: Crossmatch See Detail 09/23/22 08:57: WBC 6.1, RBC 3.37 L, Hgb 10.8 L, Hct 33.1 L, MCV 98.2 H, MCH 32.0, MCHC 32.6, RDW Std Deviation 54.4 H, RDW Coeff of Jumana 15.1 H, Plt Count 96 L, MPV 12.9 H, Immature Gran % (Auto) 0.300, Neut % (Auto) 58.1, Lymph % (Auto) 26.4, [place] % (Auto) 10.8 H, Eos % (Auto) 3.6, Baso % (Auto) 0.8, Absolute Neuts (auto) 3.6, Absolute Lymphs (auto) 1.61, Nucleated RBC % 0 09/23/22 08:57: PT Cancelled, INR Cancelled, APTT Cancelled 09/23/22 08:57: Sodium 140, Potassium 4.6, Chloride 109 H, Carbon Dioxide 23.0, Anion Gap 8, BUN 9, Creatinine 0.82, Estim Creat Clear Calc 104.18, Est GFR (MDRD) Af Amer 125, Est GFR (MDRD) Non-Af 104, BUN/Creatinine Ratio 10.9, Glu cose 164 H, Calcium 9.0, Total Bilirubin 0.90, Direct Bilirubin 0.44 H, AST 85 H , ALT 42, Alkaline Phosphatase 123 H, Total Protein 7.4, Albumin 3.1 L, Globulin 4.3 H, Lipase 86 H 09/23/22 08:57: Blood Type A POSITIVE, Antibody Screen NEGATIVE Assessment & Plan Assessment/Plan (1) Hematemesis of fresh blood: PLAN: Plan Patient is a 52-year-old gentleman with history of alcoholic cirrhosis of the liver presented with massive hematemesis and abdominal pain 1. Upper GI bleed with massive hematemesis ? In a patient with known cirrhosis of the liver with portal hypertension and esophageal varices. Patient has been admitted to the intensive care unit started on Protonix drip as well as octreotide patient was typed and screened for 2 unit PRBC and transfusion initiated in the ED. Consult placed to Dr. Tenorio plan is for patient to undergo emergency EGD with intervention 2. Anemia ? Secondary to acute blood loss anemia following massive hematemesis. An order was given for patient to receive 2 unit PRBC transfusion from the emergency department subsequent H&H ordered for monitoring 3. Status post endotracheal intubation and subsequent ventilation ?Result of massive hematemesis to protect patient's airway. Consult placed to Dr. Thornton with pulmonary medicine for vent management 4. Alcoholic cirrhosis of the liver ? With subsequent complication including portal hypertension and cirrhosis of the liver follows GI as outpatient 5. History of gastric varices ? With previous banding 6. COPD ? Currently not in exacerbation plan is to continue patient bronchodilator treatment regimen 7. Tobacco dependence Plan is to correctional counselor patient on cessation once of the vent 8. DVT prophylaxis -No chemoprophylaxis secondary to above bleeding Time spent in the patient's overall evaluation,decision-making process, review of diagnostic data, adjustment of management, discussion with other providers, nursing nursing and ancillary staff involved in patient's care documentation, 80Minutes Advance planning; did discuss with the patient's family regarding advanced directives as well as CODE STATUS. Did explain the various scenarios involved ( FULL CODE, DNR CCA, DNR CCA with no intubation, and DNR CC and what each meant) plan is for patient to remain full code. Order was placed. Time spent on discussion 16 minutes. Charges/Coding Visit Charges Inpatient E&M: 87480 Init Hosp L3 Procedures Hospitalists Procedures: 51775 Advncd Care Plan 30 Min
--- NOTE | 2022-09-23 10:54 | CON.PCM.CC_ITS ---
Assessment & Plan Assessment/Plan (1) Hematemesis of fresh blood: PLAN: Resolved after urgent upper endoscopy and gastric variceal banding by Jet Tenorio MD. H&H every 6, patient received 2 units of O- blood in ER, small drop in hemog lobin initially, no longer having hematemesis in ICU. (2) COPD (chronic obstructive pulmonary disease): PLAN: Current smoker, will give DuoNeb nebulizer and avoid steroids at this time. Titrate O2 to keep greater than 92%. (3) On mechanically assisted ventilation: PLAN: Patient was briefly on mechanical ventilation today for airway protection until he was able to have upper endoscopy, resolution of bleeding and hematemesis, and was extubated in ICU. (4) Acute on chronic respiratory failure with hypoxia: PLAN: As above. (5) Cirrhosis: PLAN: Chronic. PLAN: Plan ICU will follow with you until he is stable hemodynamically, remains without bleeding, and from a respiratory viewpoint for 24 hours, then sign off. Please call if further intervention is needed. HPI Consult Data Date of Consult: 09/23/22 HPI Narrative Reason for Consultation: Manage mechanical ventilation in the patient w/ bleeding gastric varices HPI Narrative: LUH RAMOS, is a 52 M who presents with fullness in his abdomen this morning who proceeded to vomit bright red blood on 4 occasions prior to arrival to the ER. Hemoglobin dropped 2 points, he continued to vomit blood in the ER and was intubated for airway protection. Chest x-ray immediately post intubation was clear, O2 saturation is adequate on 100% FiO2 on the ventilator. Chest x-ray shows high endotracheal tube but no other significant abnormalities. He has known gastric varices secondary to cirrhosis, last had esophageal banding on 08/16/2022 by Jet Tenorio MD.'s note stated:? PLAN: Upper GI bleed secondary to acute variceal bleed. He was treated endoscopically. On repeat endoscopy there was no stigmata of bleeding. Bands were placed to the proximal esophageal varices. He will be on nadolol 10 mg twice daily. He will be on Protonix 40 mg twice daily. Pulmonary was consulted to manage his ventilator. He has known COPD is not current smoker. He is unable to give a history. He uses home albuterol, Spiriva Respimat 2 puffs daily. An echocardiogram in 2021 showed normal ejection fraction and trivial multiple valve regurgitation. There is no prior pulmonary function test on file. Had emergent endoscopy with banding of bleeding gastric varices. Please see Jet Tenorio MD's note. Bleeding stopped. He returned to the intensive care unit after the procedure, and was able to be e xtubated shortly after arrival, uneventfully. [facility] Medical History (Updated 09/23/22 @ 13:[address] Hernandez Thornton MD) Acute on chronic respiratory failure with hypoxia ADHD Alcohol use Anemia Arthritis Asthma Back pain Chronic cough Cirrhosis Colitis COPD (chronic obstructive pulmonary disease) Cubital tunnel syndrome on right Easy bruising Esophageal varices Gastric varices GERD (gastroesophageal reflux disease) Hematemesis of fresh blood Hiatal hernia History of echocardiogram History of GI bleed History of GI bleed History of hiatal hernia History of stress test History of ulceration Hx of fracture of ankle Hx of ulcerative colitis Injury of back Internal impingement of right shoulder Irritable bowel Leg cramps Low iron On mechanically assisted ventilation Portal hypertension Primary osteoarthritis, right elbow Restless legs Right carpal tunnel syndrome Right elbow pain Right shoulder pain Shortness of breath on exertion Smoker Tear of right biceps muscle Thrombocytopenia Wears dentures Wears glasses Home Medications ipratropium 0.5 mg-albuterol 3 mg (2.5 mg base)/3 mL nebulization soln 3 ml inhalation PRN PRN Wheezing 02/20/21 [History Last Taken Unknown] vitamin E 268 mg (400 unit) capsule 400 unit PO DAILY Check with primary doctor 09/30/21 [History Last Taken 08/14/22] albuterol sulfate 90 mcg/actuation aerosol inhaler 1 - 2 puff inhalation PRN PRN ASTHMA 06/14/22 [History Last Taken Unknown] nadolol 20 mg tablet 20 mg PO BID Check with primary doctor 06/14/22 [History Last Taken 08/15/22] tiotropium bromide 2.5 mcg/actuation mist for inhalation (Spiriva Respimat) 2 puff inhalation DAILY Check with primary doctor 06/14/22 [History Last Taken 08/15/22] pantoprazole 40 mg tablet,delayed release 40 mg PO BID Check with primary doctor #60 tabs 08/17/22 [Rx Last Taken Unknown] Allergy/AdvReac Type Severity Reaction Status Date / Time No Known Allergies Allergy Verified 09/23/22 08:47 Family History Other Cancer Diabetes Heart disease Surgical History History of esophagogastroduodenoscopy (EGD) History of esophagogastroduodenoscopy (EGD) History of foot surgery Hx of colonoscopy Hx of elbow surgery Hx of repair of right rotator cuff Social History Smoking Status: Current every day smoker tobacco type: cigarettes Physical Exam Narrative Well-developed sedated man who is generally agitated after arrival in ICU, was sedated when I first saw him in the OR having endoscopy. HEENT: No secretions from the endotracheal tube which is at 22 cm at the upper teeth (chest x-ray suggested it would benefit from being advanced 2 to 3 cm to 24?25 at teeth, but patient was extubated in ICU and it was not necessary) extra oculars are intact, anicteric, no nystagmus, mucous membranes moist. Residual blood on face. Chest is clear bilaterally with no wheezes rales or rhonchi Cardiac normal S1-S2 normal sinus rhythm on monitor and no murmurs no gallops Abdomen is soft nontender, musculature, diminished bowel sounds Extremities have no clubbing cyanosis or edema Neuro: Good strength. Nonfocal, nonverbal/sedated. Skin is warm and dry, plethoric. Medical Records Data Attestation: I reviewed the patient's medical records Lab / Micro Data Attestation: I reviewed the patient's lab results. Lab results narrative: Chest x-ray was personally reviewed and had no acute infiltrates or effusion, the endotracheal tube is high. Result Diagrams: 09/23/22 08:57 09/23/22 08:57 Labs: Laboratory Results - last 24 hr 09/23/22 08:55: Crossmatch See Detail 09/23/22 08:57: WBC 6.1, RBC 3.37 L, Hgb 10.8 L, Hct 33.1 L, MCV 98.2 H, MCH 32.0, MCHC 32.6, RDW Std Deviation 54.4 H, RDW Coeff of Jumana 15.1 H, Plt Count 96 L, MPV 12.9 H, Immature Gran % (Auto) 0.300, Neut % (Auto) 58.1, Lymph % (Auto) 26.4, [place] % (Auto) 10.8 H, Eos % (Auto) 3.6, Baso % (Auto) 0.8, Absolute Neuts (auto) 3.6, Absolute Lymphs (auto) 1.61, Nucleated RBC % 0 09/23/22 08:57: PT Cancelled, INR Cancelled, APTT Cancelled 09/23/22 08:57: Sodium 140, Potassium 4.6, Chloride 109 H, Carbon Dioxide 23.0, Anion Gap 8, BUN 9, Creatinine 0.82, Estim Creat Clear Calc 104.18, Est GFR (MDRD) Af Amer 125, Est GFR (MDRD) Non-Af 104, BUN/Creatinine Ratio 10.9, G lucose 164 H, Calcium 9.0, Total Bilirubin 0.90, Direct Bilirubin 0.44 H, AST 85 H, ALT 42, Alkaline Phosphatase 123 H, Total Protein 7.4, Albumin 3.1 L, Globulin 4.3 H, Lipase 86 H 09/23/22 08:57: Blood Type A POSITIVE, Antibody Screen NEGATIVE ABG Data ABG results: Patient had been intubated for airway protection in the setting of hematemesis and need for urgent endoscopy. Was extubated on arrival to ICU, therefore the postprocedure postintubation ABG ordered became unnecessary, it was canceled.
[2022-09-23 10:57] LABS: International Normalized Ratio 1.3; Prothrombin Time (Protime)PT. 16.2 SECONDS (11.7-14.9)
[2022-09-23 10:58] LABS: Partial Thromboplast Time 33.1 Seconds (24.1-36.2)
--- NOTE | 2022-09-23 11:02 | ED.RN ---
THIS RN ASSISTED PT TO OR AT 1045. PT VS REMAIN STABILIZED ON TRANSPORT. BP 104/71 HR66 RESPIRATORY RATE 20 AND SPO2 100% HANDOFF GIVEN TO OR. BAGGING PER RESPIRATORY ON TRANSPORT.
--- NOTE | 2022-09-23 11:30 | ED.RN ---
ATTEMPTED TO CALL BACK KIET IN ICU FOR REPORT, THIS NURSE IN WITH ANOTHER PATIENT ON HER PHONE CALL. CONTINUED TO HOLD, NO REPORT GIVEN.
[2022-09-23 12:17] LABS: BNP,B-Type NATRIURETIC PEPTIDE 66.3 pg/mL (0-100)
--- NOTE | 2022-09-23 12:19 | OP.EGD_ITS ---
Patient Name: Kevin Moncada Procedure Date: 09/23/2022 10:41 AM Date of : 1970 Age: 52 Procedure: Upper GI endoscopy Indications: Hematemesis, For therapy of esophageal varices Providers: Jet Tenorio DO Medicines: Monitored Anesthesia Care Patient Profile: This is a 52 year old male. Refer to note in patient chart for documentation of history and physical. Patient has symptoms of acute vomiting. Complications: No immediate complications. Procedure: Pre-Anesthesia Assessment: - Prior to the procedure, a History and Physical was performed, and patient medications and allergies were reviewed. The risks and benefits of the procedure and the sedation options and risks were discussed with the patient. All questions were answered and informed consent was obtained. Patient identification and proposed procedure were verified by the physician. Mental Status Examination: normal. Prophylactic Antibiotics: The patient does not require prophylactic antibiotics. Prior Anticoagulants: The patient has taken no previous anticoagulant or antiplatelet agents. After reviewing the risks and benefits, the patient was deemed in satisfactory condition to undergo the procedure. The anesthesia plan was to use monitored anesthesia care (MAC). Immediately prior to administration of medications, the patient was re-assessed for adequacy to receive sedatives. The heart rate, respiratory rate, oxygen saturations, blood pressure, adequacy of pulmonary ventilation, and response to care were monitored throughout the procedure. The physical status of the patient was re-assessed after the procedure. After obtaining informed consent, the endoscope was passed under direct vision. Throughout the procedure, the patient's blood pressure, pulse, and oxygen saturations were monitored continuously. The Endoscope was introduced through the mouth, and advanced to the second part of duodenum. The upper GI endoscopy was accomplished without difficulty. The patient tolerated the procedure well. Scope In: 11:00:00 AM Scope Out: 11:45:23 AM Total Procedure Duration Time 0 hours 45 minutes 23 seconds Findings: Grade III varices were found in the middle third of the esophagus and in the lower third of the esophagus. They were 29 mm in largest diameter. Three bands were successfully placed with incomplete eradication of varices. Bleeding had stopped at the end of the procedure. Red blood was found in the entire examined stomach. Fluid aspiration was performed. Moderate portal hypertensive gastropathy was found in the cardia and in the gastric fundus. No gross lesions were noted in the first portion of the duodenum. Impression: - Grade III esophageal varices. Incompletely eradicated. Banded. - Red blood in the entire stomach. Fluid aspiration performed. - Portal hypertensive gastropathy. - No gross lesions in the first portion of the duodenum. Recommendation: - Admit the patient to ICU for ongoing care. - NPO. - Continue present medications. Procedure Code(s): --- Professional --- 93615, Esophagogastroduodenoscopy, flexible, transoral; with band ligation of esophageal/gastric varices CPT copyright 2017 [employer]. All rights reserved. The codes documented in this report are preliminary and upon clinical coder review may be revised to meet current compliance requirements. Jet Tenorio DO 09/23/2022 12:18:56 PM This report has been signed electronically. Number of Addenda: 0 Note Initiated On: 09/23/2022 10:41 AM
--- NOTE | 2022-09-23 12:20 | OP.CCLET_ITS ---
09/23/2022 Aron Moya [address] [place] [address] Re : Upper GI endoscopy procedure for Kevin Moncada Dear Dr. Moya This procedure was performed on Friday, September 23, 2022. My impressions and recommendations are as follows: Impressions : - Grade III esophageal varices. Incompletely eradicated. Banded. - Red blood in the entire stomach. Fluid aspiration performed. - Portal hypertensive gastropathy. - No gross lesions in the first portion of the duodenum. Recommendations : - Admit the patient to ICU for ongoing care. - NPO. - Continue present medications. My findings are described in the full procedure note, which is enclosed. If I can be of further assistance, please feel free to contact me at . Sincerely, Jet Tenorio, 09/23/2022 12:18:56 PM This report has been signed electronically.
--- NOTE | 2022-09-23 12:45 | NURSING ---
arrived in unit from [facility] hernadez/marco a (placed in ED). Dc'd after extubation at 1245
--- NOTE | 2022-09-23 13:13 | NURSING ---
placed in ED
[2022-09-23 13:14] LABS: Troponin-I HS 122 pg/mL (3.0-78.0)
[2022-09-23 14:26] LABS: Hematocrit 36.8 % (40-54); Hemoglobin 11.6 g/dL (13.0-16.5)
--- NOTE | 2022-09-23 14:55 | EKG12_ITS ---
Test Reason : Blood Pressure : / mmHG Vent. Rate : 088 BPM Atrial Rate : 088 BPM P-R Int : 156 ms QRS Dur : 086 ms QT Int : 384 ms P-R-T Axes : 075 002 075 degrees QTc Int : 464 ms Normal sinus rhythm Nonspecific ST abnormality Abnormal ECG Confirmed by KANDI PHELPS, ISAURO ([id number]), purchase request editor NETTIE TORRES ([id number]) on 10/02/2022 2:40:42 PM Referred By: Confirmed By:ISAURO CHAU MD
[2022-09-23 15:01] LABS: Troponin-I HS 288 pg/mL (3.0-78.0)
[2022-09-23] MEDS: 0.9% Normal Saline 1,000 ML 100 ML IV ×2 (16:00→19:31)
--- NOTE | 2022-09-23 16:05 | RAD_ITS ---
STUDY: X-RAY CHEST REASON FOR EXAM: Male, 52 years old. ett placement TECHNIQUE: AP COMPARISON: Earlier today FINDINGS: Endotracheal tube is present with tip terminating 2 cm above the atif. No airspace consolidation. EKG leads project over the chest. There is no demonstrated pleural abnormality. Normal size heart. Normal mediastinum and gerardo. Normal visualized pulmonary arteries. Normal visualized aortic arch and descending thoracic aorta. Normal visualized thoracic spine. Old left rib fractures. There is no demonstrated abnormality of the visualized soft tissue structures of the upper abdomen. RAD/Chest 1 View (Portable) IMPRESSION: Endotracheal tube is present with tip terminating 2 cm above the atif. Electronically Signed: Jake Pack (Brooks), at 16:22 EDT ,
--- NOTE | 2022-09-23 16:08 | NURSING ---
1605 cxr completed beverly vázquez and aniceto present in pt room. prep for EGD, family at bedside 1610 HR 120 BP 83/54 Levo at 20mcq/min TV 400 ACVC14 FiO2 100 PEEP 8 1615 HR 113 BP 127/112 begin EGD, Dr. Vázquez and Aniceto present
[2022-09-23 16:16] LABS: Anion Gap 5 (5-15); BUN 17 mg/dL (7-18); BUN/Creat Ratio 24.4 RATIO (10-20); Calcium,Total 6.7 mg/dL (8.5-10.1); Chloride 121 mmol/L (98-107); EST Glomerular Filtration Rate 126 mL/min (>60); Est Glom Filt Rate - Afr Amer 152 mL/min (>60); Estimated Creatinine Clearance 122.04 ml/min; Glucose 185 mg/dL (74-106); Magnesium 1.8 mg/dL (1.6-2.6); Phosphorus 2.7 mg/dL (2.5-4.9); Sodium Level 146 mmol/L (136-145); Troponin-I HS 766 pg/mL (3.0-78.0)
--- NOTE | 2022-09-23 16:22 | NURSING ---
1615 BP 127/113 levo on hold 1620 HR106 BP 116/97 levo restarted at 10mcq/min 1630 bp 250/173 1 ampbicarb ivp 1634 40mg propofol IVP, EGD in progress 1637 75mg succs IVP, NS to 250cc/hr 1645 HR 84 BP 111/31. EGD completed, begin prep CL. Dr. Thornton present vent increased to 28ACVC 1650 NS decreased to 100cc/hr HR 84, BP 67/57 levo started at 10mcq/min 1653 BP 49/30 levo increased to 20mcq/min 1655 BP 43/26 line placement in progress 10 units humalog insulin IVP, 1 amp d50 IVP 1658 BP 53/25 0.9ns increased to 250cc/hr
[2022-09-23 16:26] LABS: Base Excess -22 mmol/L (-2 to +2); Bicarbonate 12.3 mmol/L (22-26); Blood Gas Specimen Type ART; FI02 100; Mode AC; O2 Delivery Device ET Tube; PEEP 8; PO2 91 mmHG (75-100); RR 14; SITE R Fem; SO2 86 % (95-99); Total Carbon Dioxide 15 mmol/L; Vt 400; pCO2 71.1 mmHg (35-45); pH 6.85 (7.35-7.45)
--- NOTE | 2022-09-23 16:26 | PCM.OP.PRO ---
Assessment & Plan Assessment/Plan (1) Acute respiratory failure with hypoxia: (2) Cardiopulmonary arrest with successful resuscitation: PLAN: Plan Patient had acute cardiopulmonary arrest for which CODE BLUE was called. BLS and ACLS protocol was followed with high-quality CPR and epinephrine every 2 minutes. PEA during code. Patient had ROSC with low pulse volume and good QRS form. Patient already on Levophed. To that patient was admitted with hematemesis and abdominal pain with history of alcoholic cirrhosis decompensated with portal hypertension and esophageal varices. Patient had 4 episodes of bright red emesis. Was started on Protonix drip, octreotide drip and IV ceftriaxone. After successful ROSC, patient could not protect airway and was hypoxic pulse ox in 80s therefore rapid sequence intubation was decided Indication: Acute hypoxic respiratory failure status, acute cardiopulmonary arrest, hypotension on IV Levophed drip, unable to protect airway and severe acute upper GI bleed Total time spent 60 minutes in direct monitoring, coordinating and running the CODE BLUE, intubation Procedure Report Date of Procedure: 09/23/22 Patient was moving his airway and restless after successful ROSC. The patient positioned in reverse Trendelenburg position. 20 mg IV etomidate was used for sedation Under Glydo scope, oropharyngeal region, base of tongue, epiglottis and vocal cord were not visualized. Under indirect visualization, 8 cm ET tube was inserted, Portable chest x-ray was done. Tip of ET tube found 2 cm proximal to atif in adequate position. Chest x-ray reviewed with blood bank laboratory technologist. Procedures Hospitalists Procedures: 73244 Critial Care 1st Hr
[2022-09-23] MEDS: Sodium Bicarbonate 8.4% 50 ML Syringe 50 MEQ IV ×3 (16:30→21:19)
[2022-09-23] MEDS: Succinylcholine Chloride 200 MG/10 ML SYRINGE 75 MG IV (16:37)
[2022-09-23] MEDS: Ipratropium/Albuterol Sulfate 3 ML AMPUL.NEB INHALATION ×2 (16:40→19:26)
[2022-09-23] MEDS: 0.9% Normal Saline 1,000 ML IV.SOLN. 1000 ML IV (16:45)
[2022-09-23] MEDS: Dextrose 50%-Water 25 GM/50 ML DISP.SYRIN IV ×3 (16:55→23:35)
--- NOTE | 2022-09-23 17:11 | CPS ---
ICU called for a blood gas to be ran on pt that Dr Thornton had gotten with a line. When this RT arrived on the unit, I was handed the blood sample and Tyrese GARDNER told me it was blood from the carotid. Blood gas ran by this RT and results given to Dr Thornton.
[2022-09-23 17:15] LABS: Base Excess -14 mmol/L (-2 to +2); Bicarbonate 14.2 mmol/L (22-26); Blood Gas Specimen Type ART; FI02 100; O2 Delivery Device Adult Vent; PEEP 8; PO2 183 mmHG (75-100); RR 28; SO2 99 % (95-99); Total Carbon Dioxide 15 mmol/L; Vt 500; pH 7.22 (7.35-7.45)
--- NOTE | 2022-09-23 17:17 | NURSING ---
1715 HR 107 BP 66/39 2 amps 4.2 bicarb given R fem TL placed per Dr. Thornton 1720 20mg propofol ivp
--- NOTE | 2022-09-23 17:32 | NURSING ---
1730 begin placement rt groin art line. HR 107, BP 101/74 1735 pressure held rt groin art stick.
[2022-09-23] MEDS: Propofol 200 MG/20 ML Vial 20 MG IV BOLUS (17:40)
--- NOTE | 2022-09-23 17:56 | PCM.OP.PRO ---
Procedure Report Date of Procedure: 09/23/22 Triple-lumen central line The line was placed emergently in the right femoral vein while the patient was hypotensive, to allow adequate access for pressors fluids and blood products while he was having massive hemorrhage from gastric variceal and esophageal variceal bleed The right femoral area was shaved prepped and draped in the usual fashion. Patient was sedated and unresponsive at the time of the procedure and time was of the essence so using a Arrow triple-lumen central line kit, drapes, gloves, gown, headgear, the right femoral vein was entered with the standard steel venous access needle with second needle pass. Guidewire was placed without difficulty, the triple-lumen catheter was advanced with no resistance and good blood return from all 3 ports. The line was superstructure in place, flushed and capped with sterile caps. An adjacent right femoral arterial line was not successful, a previous attempt at the right IJ was also not successful due to hypotension. There was a complication of a carotid stick on the right, which was compressed for 10 minutes and sandbag. FFP is to be given. The patient has developed a coagulopathy since the morning despite massive transfusion protocol due to large volume resuscitation and multiple blood products given, hypotension. Procedures Hospitalists Procedures: [id number] Insert Non-tunnel CV Cath
[2022-09-23] MEDS: fentaNYL drip 100 ML 5 MCG CONT INF (18:00)
[2022-09-23] MEDS: Propofol 10MG/Ml 1,000 MG/100 ML Bottle 5 MG CONT INF (18:00)
--- NOTE | 2022-09-23 18:01 | PN.CC_ITS ---
Assessment & Plan Assessment/Plan (1) Hematemesis of fresh blood: PLAN: Recurrent life-threatening upper GI bleeding, after initial resolution of bleeding this morning after banding. It may have been caused by patient insisting on moving his bowels and straining at stool, loosening the band and beginning to have recurrent hemohematemesis shortly thereafter. - See GI note - Blood products given - Fluid resuscitation done - Blood pressure stabilized after 2 to 3 hours on Levophed and the above measures. - Poor prognosis. - Continuing to follow labs closely. (2) COPD (chronic obstructive pulmonary disease): PLAN: Current smoker, will give DuoNeb nebulizer and avoid steroids at this time. Titrate O2 to keep greater than 92%. (3) On mechanically assisted ventilation: PLAN: Patient was reintubated. ABGs are approaching optimal levels with intensive interventions. (4) Acute on chronic respiratory failure with hypoxia: PLAN: As above. (5) Cirrhosis: PLAN: Chronic. PLAN: Plan As above Critical care time spent with patient at bedside, review of documentation, lab results, radiology and other test results, discussion with colleagues and ancillary staff, clinical management of patient, and updating family if applicable, was 5 hrs 20minutes. This time does not include any procedures, if performed. [place] 22374, [id number]. Subjective Subjective Patient remained obtunded throughout the afternoon, required reintubation for additional bleeding requiring a second urgent upper endoscopy, placement of NG tube under direct vision and aspiration of 500 cc of fresh blood by the NG tube after vomiting approximately a liter of fluid/blood. Objective Data Objective Data Patient had a PEA arrest, code was called, 4 rounds of epi and CPR was given. He was intubated by the hospitalist, mechanically ventilated, initial ABG is as below. The patient had a prolonged period of hypotension despite massive fluid resuscitation, 2 units of stat packed cells, pressors, placement of central line and additional IV access. He was noted to have rebled after his variceal banding this morning after insisting to get up and use the bedside commode, he strained at stool and likely loosen one of his bands. Please see the note from Jet Tenorio MD for upper endoscopy #2 findings. Over the course of the next 2 hours he went from clear lungs to increased resistance and crackles in all lung farr, likely due to fluid and blood resuscitation to maintain his blood pressure. By approximately 5:30 PM he began to have spontaneous movement, nonspecific withdrawal. He is sedated on mechanical ventilation with improvement in his second post reintubation blood gas. Required 2 A of bicarb, Initial labs had hyperkalemia of 6.0. He received 10 units of insulin and D50. Additional transfusions are planned, and supplementation of FFP. Troponins were elevated at 122 and 288, likely due to prolonged hypotension. Prognosis is poor. Vital Signs: Vital Signs Temp Pulse Resp BP Pulse Ox O2 Del Method O2 Flow Rate 97 F L 82 28 H 48/26 L 100 Nasal Cannula 2 09/23/22 10:40 09/23/22 16:40 09/23/22 16:40 09/23/22 15:44 09/23/22 12:55 09/23/22 12:55 09/23/22 12:55 FiO2 100 09/23/22 16:20 Oxygen Flow Rate (L/min) 2 Oxygen Delivery Method Nasal Cannula Weight: 182 lb 15.739 oz Body Mass Index (BMI) 27.0 Intake & Output: Intake and Output for Last 24 Hours 09/21/22 09/22/22 09/23/22 23:59 23:59 23:59 Intake Total 1100.01 / 1100.01 Balance 1100.01 / 1100.01 Lab / Micro Data Result Diagrams: 09/23/22 14:15 09/23/22 15:40 Labs: Laboratory Results - last 24 hr 09/23/22 08:55: Crossmatch See Detail 09/23/22 08:57: WBC 6.1, RBC 3.37 L, Hgb 10.8 L, Hct 33.1 L, MCV 98.2 H, MCH 32.0, MCHC 32.6, RDW Std Deviation 54.4 H, RDW Coeff of Ujmana 15.1 H, Plt Count 96 L, MPV 12.9 H, Immature Gran % (Auto) 0.300, Neut % (Auto) 58.1, Lymph % (Auto) 26.4, [place] % (Auto) 10.8 H, Eos % (Auto) 3.6, Baso % (Auto) 0.8, Absolute Neuts (auto) 3.6, Absolute Lymphs (auto) 1.61, Nucleated RBC % 0 09/23/22 08:57: PT Cancelled, INR Cancelled, APTT Cancelled 09/23/22 08:57: Sodium 140, Potassium 4.6, Chloride 109 H, Carbon Dioxide 23.0, Anion Gap 8, BUN 9, Creatinine 0.82, Estim Creat Clear Calc 104.18, Est GFR (MDRD) Af Amer 125, Est GFR (MDRD) Non-Af 104, BUN/Creatinine Ratio 10.9, Glucose 164 H, Calcium 9.0, Total Bilirubin 0.90, Direct Bilirubin 0.44 H, AST 85 H, ALT 42, Alkaline Phosphatase 123 H, Total Protein 7.4, Albumin 3.1 L, Globulin 4.3 H, Lipase 86 H 09/23/22 08:57: Blood Type A POSITIVE, Antibody Screen NEGATIVE 09/23/22 09:00: B-Natriuretic Peptide 66.3 09/23/22 10:45: PT 16.2 H, INR 1.3, APTT 33.1 09/23/22 10:50: Troponin I High Sens 122 H* 09/23/22 14:15: Hgb 11.6 L, Hct 36.8 L 09/23/22 14:25: Troponin I High Sens 288 H* 09/23/22 15:40: Sodium 146 H, Potassium 6.0 H*, Chloride 121 H, Carbon Dioxide 20.0 L, Anion Gap 5, BUN 17, Creatinine 0.70, Estim Creat Clear Calc 122.04, Est GFR (MDRD) Af Amer 152, Est GFR (MDRD) Non-Af 126, BUN/Creatinine Ratio 24.4 H, Glucose 185 H, Calcium 6.7 L, Magnesium 1.8, Troponin I High Sens 766 H* 09/23/22 15:40: Calcium Cancelled, Phosphorus 2.7 ABG Data ABG results: ABG 09/23/22 09/23/22 16:21 17:11 Specimen Type ART ART Sample Site R Fem pH 6.85 L* 7.22 L Bicarbonate Actual 12.3 L 14.2 L Total CO2 15 15 Base Excess -22 L -14 L O2 Saturation 86 L 99 O2 % 100 100 ABG pCO2 71.1 H* 35.0 ABG pO2 91 183 H Kobe Test N/A Respiration Rate 14 28 O2 Delivery Device ET Tube Adult Vent Vent Mode AC Tidal Volume 400 500 POC PEEP 8 8 Crit Call To/Read Back Yes Blood Gas Notified Whom GISELA Radiography Diagnostic Testing: Radiology Impression Chest X-Ray 09/23/22 10:25 IMPRESSION: 1. No acute findings in the chest. 2. Satisfactory placement of ET tube. Electronically Signed: Nikos Kunz MD at 13:00 EDT , Chest X-Ray 09/23/22 16:05 IMPRESSION: Endotracheal tube is present with tip terminating 2 cm above the atif. Electronically Signed: Jake Pack (Brooks) at 16:22 EDT , Charges/Coding Procedures Hospitalists Procedures: [id number] Critial Care 1st Hr (and [id number] x 8)
[2022-09-23 18:34] LABS: Bedside Glucose 215 mg/dL (74-106)
[2022-09-23] MEDS: Propofol 200 MG/20 ML Vial 40 MG IV BOLUS (18:35)
--- NOTE | 2022-09-23 19:59 | NURSING ---
Addendum entered by Maria L Heller 09/23/22 20:02: time should be 1330 Original Note: pt instructed to not strain or bear down hard, reminded pt of bleeding concerns. He indicates understanding. He proceed to strain for 20min, sm black stool. he c/o of dizziness. returned to bed. pt then c/o of severe stomach and back pain. Dr. Mendez notified. Dr. Tenorio paged.
[2022-09-23 20:03] LABS: International Normalized Ratio 2.2; Prothrombin Time (Protime)PT. 24.5 SECONDS (11.7-14.9)
[2022-09-23 20:11] LABS: ALB/GLOB Ratio 0.8 RATIO (0.9-2.4); AST(SGOT) 545 U/L (15-37); Alanine Aminotransfer ALT/SGPT 174 U/L (16-61); Albumin, Serum 1.8 g/dL (3.2-5.0); Alkaline Phosphatase 88 U/L (45-117); Anion Gap 9 (5-15); BUN 18 mg/dL (7-18); BUN/Creat Ratio 13.2 RATIO (10-20); Calcium,Total 6.3 mg/dL (8.5-10.1); Chloride 118 mmol/L (98-107); Creatinine, Serum 1.36 mg/dL (0.70-1.30); EST Glomerular Filtration Rate 58 mL/min (>60); Est Glom Filt Rate - Afr Amer 70 mL/min (>60); Estimated Creatinine Clearance 60.77 ml/min; Globulin 2.2 g/dL (2.2-4.2); Glucose 136 mg/dL (74-106); Potassium 7.7 mmol/L (3.5-5.1); Sodium Level 145 mmol/L (136-145)
[2022-09-23 20:30] LABS: Phosphorus 4.5 mg/dL (2.5-4.9)
[2022-09-23 20:32] LABS: Allen Test Negative; Base Excess -14 mmol/L (-2 to +2); Bicarbonate 14.7 mmol/L (22-26); Blood Gas Specimen Type ART; FI02 90; Mode AC; O2 Delivery Device Adult Vent; PEEP 10; PO2 295 mmHG (75-100); RR 25; SITE L Radial; SO2 100 % (95-99); Total Carbon Dioxide 16 mmol/L; Vt 500; pCO2 38.2 mmHg (35-45); pH 7.19 (7.35-7.45)
--- NOTE | 2022-09-23 20:33 | NURSING ---
Attempted to pause sedation d/t hypotension and RASS of -4. Within 15 minutes pt had his eyes open and was attempting to sit up and climb out of bed. Sedation restarted.
[2022-09-23 21:19] LABS: CPK Total, Creatine Kinase 192 U/L (39-308)
[2022-09-23] MEDS: 0.9 % NaCl (Sterile) Posiflush 10 mL IV ×2 (21:25→21:26)
[2022-09-23] MEDS: Chlorhexidine 15 ML PO (21:29)
--- NOTE | 2022-09-23 22:37 | NURSING ---
Addendum entered by Xochitl Magana 09/23/22 23:20: LAST ENTRY SHOULD HAVE READ, 2315- BP 74/52, HR 130. TIME ERROR, NOT 2615. Original Note: 09/23/2022@ 2236- PT CHANNING DOWN WITH NO PULSE NOTED. CODE BLUE CALLED. CPR STARTED. EPI 1 MG AT 2238 GIVEN. PULSE CHECK AT 2239, NO PULSE NOTED, PEA ON MONITOR. FAMILY PRESENT AT BEDSIDE. CPR RESTARTED. 2239- DR. Thurman AT BEDSIDE. PULSE CHECK, NO PULSE, PEA ON MONITOR. 224- CPR IN PROGRESS, 1 MG EPI GIVEN. BP 149/80 SPO2 100 BAGGING. 2242- 1 AMP BICARB GIVEN. 2243- PULSE CHECK, NO PULSE, RESUME CPR. NS BOLUS IN PROGRESS. 2244- 1 MG EPI GIVEN, CPR REMAINS IN PROGRESS. VASOPRESSORS MAXED AT THIS TIME. 2245- PULSE CHECK, FAINT PULSE CHECK. 2245- V FIB ON MONITOR SHOCKED WITH 200 J. CPR RESUMED. SECOND SHOCK ADMINISTERED 300 J. 224- EPI 1 MG GIVEN, CPR IN PROGRESS. BP 169/42 SPO2 92%. 224- PULSE CHECK, FAINT PULSE, MONITOR SHOWS TORSADES, 2 MG MAG ORDERED TO BE GIVEN. CPR RESUMED. 224- 2 GM OF MAG GIVEN. 225- CPR REMAINS IN PROGRESS. 225- PULSE CHECK, NO PULSE NOTED. V FIB ON MONITOR, SHOCKED WITH 360 J. CPR RESUMED. 2252- 1 MG EPI GIVEN. BP 186/40. 2253- PULSE CHECK, MONITOR SHOWS PEA. CPR RESUMED. 2255- PULSE CHECK, PULSE STRONG, MONITOR SHOWS SINUS TACH. HR 135 BP 119/56. BAGGING CONTINUES. 2255- DR. Thurman ORDERED LABS TO BE DRAWN. 2257- JJ CARVAJAL DRAWING BLOOD. FAMILY REMAINS AT BEDSIDE. 230- BP 93/72 HR 135 MONITOR SHOWS SINUS TACH. 230- PLATELETS ARRIVED AT BEDSIDE, PT PUT BACK ON VENT PER RT, SETTINGS AC/VC RR 28, TV 500, FIO2 50%, PEEP 10. 2304- NEW BAG OF CARLITO HUNG BY JJ LAWRENCE. PLATELETS VERIFIED VERBALLY WITH JJ GARCIA AND JJ HAWK. 2305- PLATELETS HUNG. 2306- BP 67/46 HR 132 MONITOR SHOWS SINUS TACH. 230- BP 99/60, HR 132. 2310- PT HAD BLACKISH REDDISH LIQUID STOOL. BP 62/43, HR 132. 2313- FAMILY REMAINS AT BEDSIDE. ALENA, RN CHECK PUPILLARY RESPONSE BILATERALLY, NO RESPONSE NOTED, PUPILS 4-5. 2615- BP 74/52, HR 130. DR. ODALIS FELDMAN, RN ALENA, RN CARINE, RN JUAN, RN HOWARD, RN JOSE, RN- HR MANAGER MAYELIN, RT AGUSTO, RT SAMUEL, CRITICAL CARE TRANSPORT NURSE PRINCESS, CRITICAL CARE TRANSPORT NURSE
--- NOTE | 2022-09-23 23:06 | PN.HOSP_ITS ---
Hospitalist Note Responded to CODE BLUE which was called at 2236 tonight, patient had an episode of bradycardia and then went into PEA, CPR was started, patient's family members were in the room at the time this happened and requested that resuscitation attempts be continued, patient was given several rounds of IV epinephrine, at 1 point during the CODE BLUE, patient appeared to be in torsades and 2 g of magnesium was administered. Patient underwent multiple defibrillation (x3) due to a rhythm which appeared to be V-fib. After approximately 20 minutes, kayley trimble's rhythm changed and he went to a sinus tachycardia with a palpable pulse. Labs will be obtained. I have elected to place the patient on IV amiodarone.
[2022-09-23 23:15] LABS: Absolute Lymphocyte Count 5.69 X10^3/uL (0.83-4.51); Absolute Neutrophil Count 18.4 X10^3/uL (2.0-7.7); Basophil# 0.05 X10^3/uL; Basophil% 0.2 % (0-1); Eosinophil# 0.04 X10^3/uL; Eosinophils% 0.1 % (0-5); Hematocrit 18.5 % (40-54); Lymphocyte # 5.69 X10^3/ul (0.83-4.51); Lymphocyte % 21.2 % (19-41); Mean Corp Hgb Conc 29.7 g/dL (32-36); Mean Corpuscular Hgb 30.7 pg (27.0-32.0); Mean Corpuscular Volume 103.4 fL (80-94); Mean Platelet Vol. 12.4 fl (6.2-12.0); Monocyte# 2.25 X10^3/uL; Monocyte% 8.4 % (0-10); NRBC Flagged by Analyzer 0.5 % (0-5); Neutrophil % 68.6 % (47-70); POSITIVE COUNT YES; POSITIVE DIFFERENTIAL YES; POSITIVE MORPHOLOGY YES; RBC Distribution Width CV 19.1 % (11.6-14.6); RBC Distribution Width SD 71.3 fl (35.1-43.9); Red Blood Count 1.79 M/mm3 (4.6-6.2); White Blood Count 26.8 K/mm3 (4.4-11.0)
[2022-09-23 23:19] LABS: Differential Indicated SCAN CRITERIA MET; Hemoglobin 5.5 g/dL (13.0-16.5); Platelet Count 44 K/mm3 (150-450)
[2022-09-23 23:20] LABS: International Normalized Ratio 3.8; Prothrombin Time (Protime)PT. 37.9 SECONDS (11.7-14.9)
[2022-09-23 23:40] LABS: Partial Thromboplast Time 104.2 Seconds (24.1-36.2)
[2022-09-23 23:44] LABS: Anion Gap 16 (5-15); BUN 20 mg/dL (7-18); BUN/Creat Ratio 12.5 RATIO (10-20); Calcium,Total 6.4 mg/dL (8.5-10.1); Chloride 123 mmol/L (98-107); EST Glomerular Filtration Rate 48 mL/min (>60); Est Glom Filt Rate - Afr Amer 58 mL/min (>60); Estimated Creatinine Clearance 51.66 ml/min; Glucose 44 mg/dL (74-106); Magnesium 2.8 mg/dL (1.6-2.6); Potassium 5.3 mmol/L (3.5-5.1); Sodium Level 156 mmol/L (136-145)
[2022-09-23] MEDS: Amiodarone 360 MG in Dextrose 5% Viaflo Bag 192.8 ML 33.2999999999999972 MG CONT INF (23:46)
[2022-09-23] MEDS: 0.9% Saline Lock 10 ML Syringe IV ×2 (23:58→23:59)
[2022-09-24] VITALS: BP 101/63; PULSE 110; RESP 29; TEMP 36.3; O2SAT 100
[2022-09-24] MEDS: Dextrose 5%/0.9% NaCl 1,000 ML 100 ML IV
[2022-09-24] MEDS: 0.9% Saline Lock 10 ML Syringe IV
[2022-09-24 00:44] LABS: Differential Comment SCANNED
[2022-09-24 00:45] LABS: Polychromasia RARE
[2022-09-24 00:50] LABS: Anisocytosis 2+; Macrocytosis 1+; Microcytosis 1+
[2022-09-24 01:00] VITALS: BP 107/82; PULSE 93; RESP 29; TEMP 36.2; O2SAT 97
[2022-09-24 01:24] LABS: Bedside Glucose 123 mg/dL (74-106)
[2022-09-24 01:28] LABS: Blood Gas Specimen Type VEN; O2 Delivery Device Adult Vent; PEEP 10; RR 28; SITE L Brach; VBG BASE EXCESS -15 mmol/L (-1.0-3.5); VBG Bicarbonate 14 mmol/L (22-26); VBG PO2 10 mmHg (25-40); VBG SO2 6 % (50-70); VBG TCO2 16 mmol/L (23-33); VBG pCO2 42.5 mmHg (41-51); VBG pH 7.14 (7.32-7.42)
[2022-09-24 01:29] LABS: Partial Thromboplast Time 161.3 Seconds (24.1-36.2)
[2022-09-24 01:30] VITALS: PULSE 94; RESP 28; O2SAT 100
[2022-09-24 01:31] LABS: International Normalized Ratio 7.5
--- NOTE | 2022-09-24 01:35 | PCM.HOSP.N ---
Hospitalist Note Additional note: I responded again to CODE BLUE at 1:40 AM, patient had a bradycardic episode and lost his pulse, we briefly instituted ACLS protocol, after few minutes I talked with the patient's who was present in the room, she did not want resuscitation attempts to continue, we then got a pulse and at the time of this dictation, the patient's CODE STATUS will be changed to a DNR CC arrest, I expect that the patient will probably sometime within the next hour. It appears likely the patient is in DIC, I had ordered cryoprecipitate and as well as fresh frozen plasma and vitamin K, patient's venous blood gas was acidotic and I gave him 3 A of bicarb. Again it appears that the patient's prognosis is poor at this time.
--- NOTE | 2022-09-24 01:38 | NURSING ---
0138- PT CHANNING DOWN ON MONITOR AGAIN. MONITOR SHOWED SINUS CHANNING WITH PULSES. CODE BLUE CALLED. 1 MG EPI GIVEN. CPR IN PROGRESS. 0139- [address] Thurman AT BEDSIDE. 0140- PULSE CHECK, STRONG PULSE. MONITOR SHOWS SINUS. HR 79, BP 94/72. 0141- SECOND AND THIRD AMP OF BICARB GIVEN. DR. Thurman TALKED TO AND NO FURTHER CPR TO BE PERFORMED. ALL CURRENT MEASURES TO CONTINUE BUT NO INCREASE OF LIFE SAVING MEASURES WILL BE ADMINISTERED GOING FURTHER. FAMILY CONTINUES AT BEDSIDE. DR. ODALIS CARVAJAL, RN CARINE, RN JUAN, RN JOSE, RN- BUS ASSISTANT MAYELIN, RT PRINCESS, WILL CALL CLERK
[2022-09-24 01:44] LABS: Fibrinogen < 60 mg/dl (203-444)
[2022-09-24] MEDS: Sodium Bicarbonate 8.4% 50 ML Syringe 100 MEQ IV (01:47)
[2022-09-24 01:48] VITALS: BP 86/64; PULSE 112; RESP 28; O2SAT 100
[2022-09-24 02:00] VITALS: BP 66/13; PULSE 70; RESP 28; O2SAT 94
[2022-09-24 02:04] VITALS: PULSE 0; RESP 0
--- NOTE | 2022-09-24 02:16 | PCM.HOSP.N ---
Hospitalist Note Final note: Patient at 2:04 AM, according to nursing, family has no further questions at this time. I feel the most probable cause of was hemorrhagic shock secondary to DIC from acute upper GI hemorrhage.
--- NOTE | 2022-09-24 02:19 | NURSING ---
Pt bradycardic in the 50s. No pulse noted. Rate continued to decline to asystole. No pulse present. Verified w/ S. JJ Hernandez.
--- NOTE | 2022-09-24 02:20 | CPS ---
Ventilator removed and turned off at 0205. Nurse is at bedtime to confirm .
--- NOTE | 2022-09-24 09:00 | PCM.DEATH ---
Preliminary Cause of Preliminary Cause of Preliminary Cause of : DIC Date of Admission: 09/23/22 Date of : 09/24/22 Principle Diagnosis Problem List: Active and Suspected Problems (Updated 09/23/22 @ 17:[address] Hernandez Thornton MD) Cardiopulmonary arrest with successful resuscitation (Acute) Acute respiratory failure with hypoxia (Acute) Acute upper GI bleed (Acute) History of esophageal varices with bleeding (Acute) On mechanically assisted ventilation (Acute) Hematemesis of fresh blood (Acute) Hospital Course [facility], is a 52 M past medical history significant for alcoholic cirrhosis of the liver with complications including portal hypertension and esophageal varices who presented with hematemesis and abdominal pain.? Patient symptoms started on the morning of his admission.? He apparently had 4 episodes of bright red emesis.? Given the history was brought to the emergency department.? Patient was started on Protonix drip as well as octreotide intubated to protect his airway given the massive hematemesis and consultation placed to Dr. Tenorio with GI and patient subsequently admitted to the intensive care unit. Patient underwent EGD which demonstrated grade 3 esophageal varices which was incompletely eradicated banded. Transferred back to the intensive care unit.Patient was extubated once he arrived in the intensive care unit. Went into cardiopulmonary arrest successfully resuscitated using ACLS. Subsequently experienced multiple rounds of cardiopulmonary arrest. Code was eventually changed to DNR CC. Patient was found without heart tones and spontaneous breathing on 09/24/2022 at 0204. Patient was pronounced . Visit Charges Inpatient E&M: 32110 Disch Hosp
--- NOTE | 2022-09-25 11:57 | OP.EGD_ITS ---
Patient Name: Kevin Moncada Procedure Date: 09/23/2022 4:11 PM Date of : 1970 Age: 52 Procedure: Upper GI endoscopy Indications: Hematemesis Providers: Jet Tenorio DO Medicines: Monitored Anesthesia Care Patient Profile: This is a 52 year old male. Refer to note in patient chart for documentation of history and physical. Patient has symptoms of acute vomiting. Complications: No immediate complications. Procedure: Pre-Anesthesia Assessment: - Prior to the procedure, a History and Physical was performed, and patient medications and allergies were reviewed. The risks and benefits of the procedure and the sedation options and risks were discussed with the patient. All questions were answered and informed consent was obtained. Patient identification and proposed procedure were verified by the physician. Mental Status Examination: normal. Prophylactic Antibiotics: The patient does not require prophylactic antibiotics. Prior Anticoagulants: The patient has taken no previous anticoagulant or antiplatelet agents. After reviewing the risks and benefits, the patient was deemed in satisfactory condition to undergo the procedure. The anesthesia plan was to use monitored anesthesia care (MAC). Immediately prior to administration of medications, the patient was re-assessed for adequacy to receive sedatives. The heart rate, respiratory rate, oxygen saturations, blood pressure, adequacy of pulmonary ventilation, and response to care were monitored throughout the procedure. The physical status of the patient was re-assessed after the procedure. After obtaining informed consent, the endoscope was passed under direct vision. Throughout the procedure, the patient's blood pressure, pulse, and oxygen saturations were monitored continuously. The Endoscope was introduced through the mouth, and advanced to the second part of duodenum. The upper GI endoscopy was accomplished without difficulty. The patient tolerated the procedure well. Scope In: 4:24:27 PM Scope Out: 4:39:45 PM Total Procedure Duration Time 0 hours 15 minutes 18 seconds Findings: Grade II varices were found in the lower third of the esophagus. They were 5 mm in largest diameter. One band was successfully placed with complete eradication, resulting in deflation of varices. There was no bleeding at the end of the procedure. Red blood was found in the entire examined stomach. No gross lesions were noted in the duodenal bulb. Impression: - Grade II esophageal varices. Completely eradicated. Banded. - Red blood in the entire stomach. - No gross lesions in the duodenal bulb. - No specimens collected. Recommendation: - Return patient to ICU for ongoing care. - NPO. - Continue present medications. Procedure Code(s): --- Professional --- 49846, Esophagogastroduodenoscopy, flexible, transoral; with band ligation of esophageal/gastric varices CPT copyright 2017 [employer]. All rights reserved. The codes documented in this report are preliminary and upon media services specialist review may be revised to meet current compliance requirements. Jet Tenorio DO 09/25/2022 11:56:44 AM This report has been signed electronically. Number of Addenda: 0 Note Initiated On: 09/23/2022 4:11 PM
--- NOTE | 2022-09-25 11:58 | OP.CCLET_ITS ---
09/25/2022 Aron Moya [address] [place] [address] Re : Upper GI endoscopy procedure for Kevin Moncada Dear Dr. Moya This procedure was performed on Friday, September 23, 2022. My impressions and recommendations are as follows: Impressions : - Grade II esophageal varices. Completely eradicated. Banded. - Red blood in the entire stomach. - No gross lesions in the duodenal bulb. - No specimens collected. Recommendations : - Return patient to ICU for ongoing care. - NPO. - Continue present medications. My findings are described in the full procedure note, which is enclosed. If I can be of further assistance, please feel free to contact me at . Sincerely, Jet Tenorio, 09/25/2022 11:56:44 AM This report has been signed electronically.
[2022-09-25 13:03] LABS: Pathologist Review Reviewed
== END 2022-09-24 04:00 | DRG 280 ==
LOC: ED 10:26 → ICU 10:47 → ED 11:15 → SDC 11:15 → ICU 11:16
PROVIDERS: Internal Medicine; Admitting Provider Internal Medicine Gastroenterology; Emergency Provider Emergency Medicine; PCP Family Medicine; Visit Provider Internal Medicine Gastroenterology
PROC: 0DJ08ZZ Inspection of Upper Intestinal Tract, Via Natural or Artificial Opening Endoscopic (ICD-10-PCS; CPT 43235; principal; 2022-09-23 10:30)
DX: J96.21 Acute and chronic respiratory failure with hypoxia (principal); D65 Disseminated intravascular coagulation [defibrination syndrome]; R57.8 Other shock; I85.11 Secondary esophageal varices with bleeding; K76.6 Portal hypertension; D62 Acute posthemorrhagic anemia; J44.9 Chronic obstructive pulmonary disease, unspecified; K70.30 Alcoholic cirrhosis of liver without ascites; I46.9 Cardiac arrest, cause unspecified; I49.01 Ventricular fibrillation; Z66 Do not resuscitate; Z79.899 Other long term (current) drug therapy; Z87.891 Personal history of nicotine dependence
CPT/HCPCS: 31500; 31720; 36430; 36600; 51702; 71045; 80048; 80053; 80076; 82310; 82550; 82803; 82962; 83690; 83735; 83880; 84100; 84484; 85014; 85018; 85025; 85384; 85610; 85730; 86644; 86850; 86900; 86901; 86920; 86922; 86965; 87070; 87205; 87428; 92950; 93005; 94002; 94640; 94799; 99252; 99285; J7030; J7040; J7050; P9012; P9016; P9017; P9035; P9040; A4216; G0463; J0612; J2354; J2405; J3475; J3490